=== PATIENT | female | born 1955 | race Hispanic/Latino ===

== ENCOUNTER 2017-08-03 08:48 | Outpatient (CLI) | payer MEDICARE, MEDICAID | END 2017-08-03 08:49 | disposition home or self-care (01) | LOC: VAS 08:48 | PROVIDERS: ATTEND Internal Medicine | DX: M79.604 Pain in right leg (principal); M79.89 Other specified soft tissue disorders ==

== ENCOUNTER 2017-12-12 08:31 | Day surgery (SDC) | payer MEDICARE ==
[~2017-12-12 08:31] MED LIST: ANCEF/STERILE WATER 2 GM/20 ML 2 GM/20 ML SYRINGE IV NR; DEMEROL IV PRN; DILAUDID IV PRN; LACTATED RINGERS 1,000 ML IV SCH; VERSED IV NR; ZOFRAN IV PRN
[2017-12-12] MEDS ORDERED: ANCEF/STERILE WATER 2 GM/20 ML IV NR (10:00)
[2017-12-12] MEDS ORDERED: DIPRIVAN 10 MG/ML IV ONE (10:19)
--- NOTE | 2017-12-12 10:28 | Anesthesia Day of Surgery ---
Anesthesia Day of Surgery - Day of Surgery Patient Examined: Yes Patient H&P Reviewed: Yes Patient is NPO: Yes
--- NOTE | 2017-12-12 10:30 | Anesthesia Consultation ---
Anesthesia Consult and Med Hx Date of service: 12/12/17 - Airway Anesthetic Teeth Evaluation: Good ROM Head & Neck: Adequate Mental/Hyoid Distance: Adequate Mallampati Class: Class III Intubation Access Assessment: Possibly Difficult - Pulmonary Exam CTA: Yes - Cardiac Exam Cardiac Exam: RRR - Pre-Operative Health Status ASA Pre-Surgery Classification: ASA3 Proposed Anesthetic Plan: General (Ga with LMA, hx of cerebral hematoma, placed on seizure meds but no hx os seizure, HTN controlled took her metoprolol today, no hx of CAD, No DM) - Pulmonary Hx Smoking: No SOB: Yes (SOB) Hx Sleep Apnea: No (YESI PRE SCREEN HIGH RISK) - Cardiovascular System Hx Hypertension: Yes (X 10 YRS) - Central Nervous System Hx Seizures: Yes (LAST SEIZURE AT LEAST 10 YRS AGO) - Endocrine Hx Hypothyroidism: Yes (JUST STARTED ON MEDS) - Other Systems Hx Cancer: No
[2017-12-12] MEDS ORDERED: NORMODYNE IV ONE (11:04)
[2017-12-12] MEDS ORDERED: ROBINUL ONE (11:04)
[2017-12-12] MEDS ORDERED: WATER FOR IRRIG STERILE IR ONE (11:04)
[2017-12-12] MEDS ORDERED: ZOFRAN ONE (11:04)
[2017-12-12] MEDS ORDERED: XYLOCAINE MPF 2% ONE (11:04)
[2017-12-12] MEDS ORDERED: LASIX ONE (11:04)
--- NOTE | 2017-12-12 11:09 | Post Operative Note ---
Date of procedure: 12/12/17 Pre-op diagnosis: cystitis Post-op diagnosis: same Findings: normal bladder retracted urethra Procedure: cysto rpgs Anesthesia: GETA Surgeon: TODD SINGH Estimated blood loss: none Pathology: none Condition: stable Disposition: PACU
--- NOTE | 2017-12-12 11:10 | Discharge Summary ---
Short Stay Discharge Plan Activity: up only with assistance, other Weight Bearing Status: Non-Weight Bearing Diet: low fat, low salt Special Instructions: other (inc fluids ) Follow up with: FERNANDA KINNEY MD [Primary Care Provider] - 7 Days TODD SINGH MD [Staff Physician] - 6 Weeks
--- NOTE | 2017-12-12 11:13 | Post Anesthesia Evaluation ---
- Post Anesthesia Evaluation Patient Participated: Yes Airway Patent: Yes Stable Respiratory Function: Yes Nausea/Vomiting: No Temp > 96.8F: Yes Pain Manageable: Yes Adequeate Hydration: Yes Anesthesia Complications: No
--- NOTE | 2017-12-12 11:49 | Operative Report ---
PREOPERATIVE DIAGNOSES: Chronic cystitis, poorly compliant, inability to examine in the office. PREOPERATIVE DIAGNOSES: Chronic cystitis, poorly compliant, inability to examine in the office. PROCEDURE: Cystoscopy, retrograde. SURGEON: Scott Alvarez MD ANESTHESIA: General. FINDINGS: This is a woman who is not cooperative, has a very retracted urethra that we noted now since she could not get on the table in the office. She mentally, physically could not be examined and now presents for cystoscopy. DESCRIPTION OF PROCEDURE: The patient was brought to the operating room and placed on the operating table. Following induction of anesthesia, placed in lithotomy position, prepped and draped in sterile fashion. She is obese with a very narrowed introitus. It was very tight, atrophic. Urethra was very retracted. Cystoscopy was carried out which showed no papillary lesions, no bladder lesions that required biopsy. Retrograde showed good filling, good drainage with some pyelosinus backflow on the left side. The patient tolerated the procedure well. No persistent filling defects were noted. No biopsy required, was brought to recovery in stable condition. JOB# [id number] ANNABELLA/MIK
--- NOTE | 2017-12-12 13:48 | Fluoroscopy Report ---
FLUOROSCOPY RETROGRADE UROGRAPHY: HISTORY: Cystitis. FINDINGS: Fluoroscopy was provided by radiology during retrograde urography by the urologist. 7 fluoroscopic images were captured. The right retrograde pyelogram is normal. The inferior calyces within the left kidney are poorly opacified. There may be a filling defect in the left renal pelvis which is poorly demonstrated on this exam. The superior calyces in the left kidney appear mildly dilated. The left ureter is grossly normal. Please correlate with the procedural report. IMPRESSION: Slightly abnormal left retrograde pyelogram.
[2017-12-12 15:00] VITALS: BP 140/90
== END 2017-12-12 13:10 | disposition home or self-care (01) ==
LOC: OR 08:31
PROVIDERS: ATTEND Urology
DX: N30.20 Other chronic cystitis without hematuria (principal); E78.00 Pure hypercholesterolemia, unspecified; I10 Essential (primary) hypertension; E03.9 Hypothyroidism, unspecified; F32.9 Major depressive disorder, single episode, unspecified; F41.9 Anxiety disorder, unspecified; Z88.8 Allergy status to other drugs, medicaments and biological substances; Z79.899 Other long term (current) drug therapy; Z98.49 Cataract extraction status, unspecified eye
CPT/HCPCS: 52005; 74420; 82803; A4217; C1758; J0690; J1940; J2405; J2704; J7120; Q9967

== ENCOUNTER 2018-05-01 15:50 | Inpatient (IN) | payer MEDICARE ==
--- NOTE | 2018-05-01 16:21 | Emergency Department Report ---
ED Neuro Deficit HPI - General Chief Complaint: Neuro Symptoms/Deficit Stated Complaint: DIZZINESS/WEAKNESS Time Seen by Provider: 05/01/18 16:06 Source: EMS Mode of arrival: Stretcher Limitations: No Limitations - History of Present Illness Initial Comments: Patient is 62 years old female with history of mental retardation, seizure, hypertension and paranoid schizophrenia. Patient brought to the emergency room via EMS from adult daycare for change in her mental status and staff stating that she is leaning more towards the right side. Unknown time of onset. Patient is not communicating well so most of the history is from the daycare staff and from medical records. Daycare staff stated that patient is in acute rehabilitation for a brain bleed one month ago for which she did not require any surgery. Patient is verbally responding but she is not answering question appropriately. Also there is a significant delay in answering questions. Ac cording to adult daycare staff,This is not her normal. -: unknown Location: altered Presenting Symptoms: Present: Altered Mental Status History of same: Yes Quality: weak - Related Data Home Medications: Home Medications Medication Instructions Recorded Confirmed Last Taken ALBUTEROL Inhaler(NF) [VENTOLIN 1 puff IH PRN PRN 12/08/17 12/12/17 12/11/17 07:45 Inhaler(NF)] Atorvastatin (Nf) [Lipitor (Nf)] 20 mg PO QDAY 12/08/17 12/12/17 12/12/17 07:45 Azelastine 0.1% (Nf) [Astelin (Nf)] 2 spray INHALATION BID 12/08/17 12/12/17 12/11/17 20:00 Clotrimazole-Betamethasone Crm 1 dose TRANSDERMA DAILY 12/08/17 12/12/17 12/11/17 20:[address] [DepaKOTE DR] 500 mg PO BID 12/08/17 12/12/17 12/11/17 20:00 Docusate Sodium [Stool Softener] 100 mg PO PRN PRN 12/08/17 12/12/17 12/11/17 20:00 Ferrous Sulfate 325 mg PO DAILY 12/08/17 12/12/17 12/11/17 20:00 Fluticasone [Flonase] 2 spray NS QDAY 12/08/17 12/12/17 12/11/17 20:00 Furosemide [Lasix TAB] 40 mg PO QDAY 12/08/17 12/12/17 11/23/17 09:00 Haloperidol 10 mg PO BID 12/08/17 12/12/17 12/11/17 20:00 Levothyroxine [Synthroid] 50 mcg PO QAM 12/08/17 12/12/17 12/11/17 07:45 Loratadine [Claritin] 10 mg PO DAILY 12/08/17 12/12/17 12/12/17 07:45 Metoprolol [Lopressor] 25 mg PO BID 12/08/17 12/12/17 12/12/17 07:45 Ondansetron [Zofran TAB] 4 mg PO Q8HR PRN 12/08/17 12/08/17 Unknown Paliperidone [Paliperidone ER] 3 mg PO DAILY 12/08/17 12/12/17 12/12/17 07:45 Phenytoin [Dilantin] 100 mg PO Q8HR 12/08/17 12/12/17 12/12/17 07:45 Potassium Chloride [Klor-Con 20 meq PO DAILY 12/08/17 12/12/17 12/12/17 07:45 Sprinkle] QUEtiapine [SEROquel] 200 mg PO BID 12/08/17 12/12/17 12/11/17 20:00 Sertraline [Zoloft] 100 mg PO QDAY 12/08/17 12/12/17 12/11/17 20:00 amLODIPine [Norvasc] 10 mg PO DAILY 12/08/17 12/12/17 12/12/17 07:45 levETIRAcetam [Keppra TAB] 2,000 mg PO BID 12/08/17 12/12/17 12/12/17 07:45 Allergies/Adverse Reactions: Allergies Allergy/AdvReac Type Severity Reaction Status Date / Time erythromycin base Allergy Rash Verified 12/08/17 13:56 [From E-Mycin] nitrofurantoin Allergy MUSCLE Verified 12/08/17 13:57 [From Macrobid] WEAKNESS,DECREASED MOBILITY vancomycin Allergy Rash Verified 12/08/17 13:56 ED Review of Systems ROS: Stated complaint: DIZZINESS/WEAKNESS Other details as noted in HPI Comment: Unobtainable due to pts medical conditions ED Past Medical Hx - Past Medical History Hx Hypertension: Yes (X 10 YRS) Hx Diabetes: Yes Hx Seizures: Yes (LAST SEIZURE AT LEAST 10 YRS AGO) Hx HIV: No Additional medical history: Scizophrenia, mild mental retardation - Social History Smoking Status: Unknown if ever smoked - Medications Home Medications: Home Medications Medication Instructions Recorded Confirmed Last Taken Type ALBUTEROL Inhaler(NF) [VENTOLIN 1 puff IH PRN PRN 12/08/17 12/12/17 12/11/17 07:45 History Inhaler(NF)] Atorvastatin (Nf) [Lipitor (Nf)] 20 mg PO QDAY 12/08/17 12/12/17 12/12/17 07:45 History Azelastine 0.1% (Nf) [Astelin (Nf)] 2 spray INHALATION BID 12/08/17 12/12/17 12/11/17 20:00 History Clotrimazole-Betamethasone Crm 1 dose TRANSDERMA DAILY 12/08/17 12/12/17 12/11/17 20:[address] [DepaKOTE DR] 500 mg PO BID 12/08/17 12/12/17 12/11/17 20:00 History Docusate Sodium [Stool Softener] 100 mg PO PRN PRN 12/08/17 12/12/17 12/11/17 20:00 History Ferrous Sulfate 325 mg PO DAILY 12/08/17 12/12/17 12/11/17 20:00 History Fluticasone [Flonase] 2 spray NS QDAY 12/08/17 12/12/17 12/11/17 20:00 History Furosemide [Lasix TAB] 40 mg PO QDAY 12/08/17 12/12/17 11/23/17 09:00 History Haloperidol 10 mg PO BID 12/08/17 12/12/17 12/11/17 20:00 History Levothyroxine [Synthroid] 50 mcg PO QAM 12/08/17 12/12/17 12/11/17 07:45 History Loratadine [Claritin] 10 mg PO DAILY 12/08/17 12/12/17 12/12/17 07:45 History Metoprolol [Lopressor] 25 mg PO BID 12/08/17 12/12/17 12/12/17 07:45 History Ondansetron [Zofran TAB] 4 mg PO Q8HR PRN 12/08/17 12/08/17 Unknown History Paliperidone [Paliperidone ER] 3 mg PO DAILY 12/08/17 12/12/17 12/12/17 07:45 History Phenytoin [Dilantin] 100 mg PO Q8HR 12/08/17 12/12/17 12/12/17 07:45 History Potassium Chloride [Klor-Con 20 meq PO DAILY 12/08/17 12/12/17 12/12/17 07:45 History Sprinkle] QUEtiapine [SEROquel] 200 mg PO BID 12/08/17 12/12/17 12/11/17 20:00 History Sertraline [Zoloft] 100 mg PO QDAY 12/08/17 12/12/17 12/11/17 20:00 History amLODIPine [Norvasc] 10 mg PO DAILY 12/08/17 12/12/17 12/12/17 07:45 History levETIRAcetam [Keppra TAB] 2,000 mg PO BID 12/08/17 12/12/17 12/12/17 07:45 History ED Neuro Physical Exam - General Limitations: No Limitations General appearance: alert, in no apparent distress Suspected Stroke: Yes - Head Head exam: Present: atraumatic, normocephalic, normal inspection - Eye Eye exam: Present: normal appearance - ENT ENT exam: Present: normal exam, normal orophraynx, mucous membranes moist - Neck Neck exam: Present: normal inspection, full ROM. Absent: tenderness, meningismus, lymphadenopathy, thyromegaly - Respiratory Respiratory exam: Present: normal lung sounds bilaterally. Absent: respiratory distress, wheezes, rales, rhonchi, accessory muscle use, decreased breath sounds, prolonged expiratory - Cardiovascular Cardiovascular Exam: Present: regular rate, normal rhythm, normal heart sounds - GI/Abdominal GI/Abdominal exam: Present: soft. Absent: distended, tenderness, guarding, rebound, rigid, organomegaly, mass, pulsatile mass - Extremities Exam Extremities exam: Present: normal inspection, full ROM, normal capillary refill. Absent: calf tenderness - Back Exam Back exam: Present: normal inspection - Neurological Exam Neurological exam: Present: alert, altered - NIHSS Assessment Interval: Baseline 1a. Level of Consciousness: alert/keenly responsive 1b. LOC Questions: answers 1 question correctly 1c. LOC Commands: performs 1 task correctly 2. Best Gaze: normal 3. Visual: no visual loss 4. Facial Palsy: normal symmetrical movement 5b. Motor Arm Right: some gravity effort 5a. Motor Arm Left: some gravity effort 6a. Motor Leg Left: some gravity effort 6b. Motor Leg Right: some gravity effort 7. Limb Ataxia: absent 8. Sensory: no response/quadraplegic 9. Best Language: no aphasia 10. Dysarthria: mild/moderate dysarthria 11. Extinction/Inattention: no abnormality Total Score: 13 Stroke Severity: Moderate Stroke - Psychiatric Psychiatric exam: Present: flat affect - Skin Skin exam: Present: warm, intact, normal color ED Course Vital Signs 05/01/18 05/01/18 16:09 16:10 Temperature 97.6 F 97.6 F Pulse Rate 80 80 Respiratory 19 19 Rate Blood Pressure 135/56 Blood Pressure 135/56 [Right] O2 Sat by Pulse 94 94 Oximetry - Lab Data Result diagrams: 05/01/18 16:17 05/01/18 16:17 Lab Results 05/01/18 05/01/18 05/01/18 Range/Units 16:17 16:17 16:17 WBC 9.7 (4.5-11.0) K/mm3 RBC 3.55 L (3.65-5.03) M/mm3 Hgb 11.8 (10.1-14.3) gm/dl Hct 32.6 (30.3-42.9) % MCV 92 (79-97) fl MCH 33 H (28-32) pg MCHC 36 H (30-34) % RDW 13.7 (13.2-15.2) % Plt Count 141 (140-440) K/mm3 Add Manual Diff Complete Total Counted 100 Seg Neuts % (Manual) 58.0 (40.0-70.0) % Band Neutrophils % 1.0 % Lymphocytes % (Manual) 29.0 (13.4-35.0) % Reactive Lymphs % (Man) 0 % Monocytes % (Manual) 8.0 H (0.0-7.3) % Eosinophils % (Manual) 2.0 (0.0-4.3) % Basophils % (Manual) 1.0 (0.0-1.8) % Metamyelocytes % 1.0 % Myelocytes % 0 % Promyelocytes % 0 % Blast Cells % 0 % Nucleated RBC % Not Reportable Seg Neutrophils # Man 5.6 (1.8-7.7) K/mm3 Band Neutrophils # 0.1 K/mm3 Lymphocytes # (Manual) 2.8 (1.2-5.4) K/mm3 Abs React Lymphs (Man) 0.0 K/mm3 Monocytes # (Manual) 0.8 (0.0-0.8) K/mm3 Eosinophils # (Manual) 0.2 (0.0-0.4) K/mm3 Basophils # (Manual) 0.1 (0.0-0.1) K/mm3 Metamyelocytes # 0.1 K/mm3 Myelocytes # 0.0 K/mm3 Promyelocytes # 0.0 K/mm3 Blast Cells # 0.0 K/mm3 WBC Morphology Not Reportable Hypersegmented Neuts Not Reportable Hyposegmented Neuts Not Reportable Hypogranular Neuts Not Reportable Smudge Cells Not Reportable Toxic Granulation Not Reportable Toxic Vacuolation Not Reportable Dohle Bodies Not Reportable Pelger-Huet Anomaly Not Reportable [place] Rods Not Reportable Platelet Estimate Consistent w auto Clumped Platelets Not Reportable Plt Clumps, EDTA Not Reportable Large Platelets Not Reportable Giant Platelets Not Reportable Platelet Satelliting Not Reportable Plt Morphology Comment Not Reportable RBC Morphology Not Reportable Dimorphic RBCs Not Reportable Polychromasia Not Reportable Hypochromasia Not Reportable Poikilocytosis Not Reportable Anisocytosis 1+ Microcytosis Not Reportable Macrocytosis Not Reportable Spherocytes Not Reportable Pappenheimer Bodies Not Reportable Sickle Cells Not Reportable Target Cells Not Reportable Tear Drop Cells Not Reportable Ovalocytes Few Helmet Cells Not Reportable [place] Bodies Not Reportable Clarissa Rings Not Reportable [place] Cells Not Reportable Bite Cells Not Reportable Crenated Cell Not Reportable Elliptocytes Not Reportable Acanthocytes (Spur) Not Reportable Rouleaux Not Reportable Hemoglobin C Crystals Not Reportable Schistocytes Not Reportable Malaria parasites Not Reportable Brian Bodies Not Reportable Hem Pathologist Commnt No PT 12.9 (12.2-14.9) Sec. INR 0.92 (0.87-1.13) APTT 49.6 H (24.2-36.6) Sec. Thrombin Time < 13.0 L (15.1-19.6) Sec. Sodium (137-145) mmol/L Potassium (3.6-5.0) mmol/L Chloride (98-107) mmol/L Carbon Dioxide (22-30) mmol/L Anion Gap mmol/L BUN (7-17) mg/dL Creatinine (0.7-1.2) mg/dL Estimated GFR ml/min BUN/Creatinine Ratio % Glucose (65-100) mg/dL Calcium (8.4-10.2) mg/dL Total Bilirubin (0.1-1.2) mg/dL Direct Bilirubin (0-0.2) mg/dL Indirect Bilirubin mg/dL AST (5-40) units/L ALT (7-56) units/L Alkaline Phosphatase (35-129) units/L Total Creatine Kinase 18 L (30-135) units/L CK-MB (CK-2) < 1.0 (0.0-4.0) ng/mL CK-MB (CK-2) Rel Index 5.5 H (0-4) Troponin T < 0.010 (0.00-0.029) ng/mL Total Protein (6.3-8.2) g/dL Albumin (3.9-5) g/dL Albumin/Globulin Ratio % Urine Bilirubin (Negative) Urine RBC (Auto) (0.0-6.0) /HPF 05/01/18 05/01/18 Range/Units 16:17 17:10 WBC (4.5-11.0) K/mm3 RBC (3.65-5.03) M/mm3 Hgb (10.1-14.3) gm/dl Hct (30.3-42.9) % MCV (79-97) fl MCH (28-32) pg MCHC (30-34) % RDW (13.2-15.2) % Plt Count (140-440) K/mm3 Add Manual Diff Total Counted Seg Neuts % (Manual) (40.0-70.0) % Band Neutrophils % % Lymphocytes % (Manual) (13.4-35.0) % Reactive Lymphs % (Man) % Monocytes % (Manual) (0.0-7.3) % Eosinophils % (Manual) (0.0-4.3) % Basophils % (Manual) (0.0-1.8) % Metamyelocytes % % Myelocytes % % Promyelocytes % % Blast Cells % % Nucleated RBC % Seg Neutrophils # Man (1.8-7.7) K/mm3 Band Neutrophils # K/mm3 Lymphocytes # (Manual) (1.2-5.4) K/mm3 Abs React Lymphs (Man) K/mm3 Monocytes # (Manual) (0.0-0.8) K/mm3 Eosinophils # (Manual) (0.0-0.4) K/mm3 Basophils # (Manual) (0.0-0.1) K/mm3 Metamyelocytes # K/mm3 Myelocytes # K/mm3 Promyelocytes # K/mm3 Blast Cells # K/mm3 WBC Morphology Hypersegmented Neuts Hyposegmented Neuts Hypogranular Neuts Smudge Cells Toxic Granulation Toxic Vacuolation Dohle Bodies Pelger-Huet Anomaly [place] Rods Platelet Estimate Clumped Platelets Plt Clumps, EDTA Large Platelets Giant Platelets Platelet Satelliting Plt Morphology Comment RBC Morphology Dimorphic RBCs Polychromasia Hypochromasia Poikilocytosis Anisocytosis Microcytosis Macrocytosis Spherocytes Pappenheimer Bodies Sickle Cells Target Cells Tear Drop Cells Ovalocytes Helmet Cells Can-[place] Bodies Clarissa Rings [place] Cells Bite Cells Crenated Cell Elliptocytes Acanthocytes (Spur) Rouleaux Hemoglobin C Crystals Schistocytes Malaria parasites Brian Bodies Hem Pathologist Commnt PT (12.2-14.9) Sec. INR (0.87-1.13) APTT (24.2-36.6) Sec. Thrombin Time (15.1-19.6) Sec. Sodium 128 L (137-145) mmol/L Potassium 4.7 (3.6-5.0) mmol/L Chloride 92.0 L (98-107) mmol/L Carbon Dioxide 24 (22-30) mmol/L Anion Gap 17 mmol/L BUN 8 (7-17) mg/dL Creatinine 0.4 L (0.7-1.2) mg/dL Estimated GFR > 60 ml/min BUN/Creatinine Ratio 20 % Glucose 101 H (65-100) mg/dL Calcium 8.5 (8.4-10.2) mg/dL Total Bilirubin < 0.20 (0.1-1.2) mg/dL Direct Bilirubin < 0.2 (0-0.2) mg/dL Indirect Bilirubin 0.0 mg/dL AST 8 (5-40) units/L ALT 9 (7-56) units/L Alkaline Phosphatase 88 (35-129) units/L Total Creatine Kinase (30-135) units/L CK-MB (CK-2) (0.0-4.0) ng/mL CK-MB (CK-2) Rel Index (0-4) Troponin T (0.00-0.029) ng/mL Total Protein 6.5 (6.3-8.2) g/dL Albumin 3.9 (3.9-5) g/dL Albumin/Globulin Ratio 1.5 % Urine Bilirubin Neg (Negative) Urine RBC (Auto) < 1.0 (0.0-6.0) /HPF - Radiology Data Radiology results: report reviewed Referring Physician: MARISA PRIETO Patient Name: NATALIA GALLAGHER Date of : 1955 Sex: Female Report Date: 2018-05-01 Report Status: Finalized Findings [facility] [address] [place] [address] Cat Scan Report Signed Patient: NATALIA GALLAGHER MR#: [id number] : 1955 Acct:[id number] Age/Sex: 62 / F ADM Date: 05/01/18 Loc: ED Attending Dr: Ordering Physician: MARISA PRIETO Date of Service: 05/01/18 Procedure(s): CT head/brain wo con Accession Number(s): [id number] cc: MARISA PRIETO PROCEDURE: CT HEAD/BRAIN WO CON TECHNIQUE: Axial helical imaging from the skull base to the vertex. HISTORY: Stroke symptoms COMPARISONS: None FINDINGS: There is previous frontal temporal craniotomy. There is encephalomalacia of the right frontal and temporal lobes deep to the craniotomy site. There is increased dural thickness and dural calcification deep to the craniotomy site. There is no evidence of an acute intracranial process, intracranial hemorrhage or mass effect. Ventricular size is concordant with the degree of atrophy/volume loss. There is atherosclerotic vascular calcification of the internal carotid arteries bilaterally at the skull base. The visualized portions of the orbits, paranasal and mastoid sinuses are notable for partial opacification of the hypoplastic right mastoid sinus. IMPRESSION: 1. No evidence of an acute intracranial process, intracranial hemorrhage or mass effect. 2. Previous right frontotemporal craniotomy with encephalomalacia in the right frontal and temporal lobes deep to the craniotomy site and increased dural thickness and dural calcification deep to the craniotomy site. This document is electronically signed by Natalia Dave MD., May 01 2018 05:24:46 PM ET Transcribed By: ED Dictated By: NATALIA DAVE MD Electronically Authenticated By: NATALIA DAVE MD Signed Date/Time: 05/01/18 1726 DD/ 0000 TD/TT: 05/01/18 1654 - Medical Decision Making Patient is 62 years old female with history of mental retardation, seizure, hypertension and paranoid schizophrenia. Patient brought to the emergency room via EMS from adult daycare for change in her mental status and staff stating that she is leaning more towards the right side. Unknown time of onset. Patient is not communicating well so most of the history is from the daycare staff and from medical records. Daycare staff stated that patient is in acute rehabilitation for a brain bleed one month ago for which she did not require any surgery. Patient is verbally responding but she is not answering question appropriately. Also there is a significant delay in answering questions. According to adult daycare staff,This is not her normal. Patient remained stable in the ER. CT brain is negative for acute finding. EKG is sinus rhythm with no ST elevation or depression. Labs reviewed that is unremarkable. I discussed the patient is Dr. Hauser, he agreed to admit the patient to medical service for further management. Critical Care Time: Yes Critical care time in (mins) excluding proc time.: 30 Critical care attestation.: If time is entered above; I have spent that time in minutes in the direct care of this critically ill patient, excluding procedure time. ED Disposition Clinical Impression: CVA (cerebral vascular accident) Disposition: OP ADMIT IP TO THIS HOSP Is pt being admited?: Yes Condition: Stable
[2018-05-01 16:36] LABS: Hematocrit 32.6 % (30.3-42.9); Hemoglobin 11.8 gm/dl (10.1-14.3); Mean Corpuscular HGB Conc 36 % (30-34); Mean Corpuscular Volume 92 fl (79-97); Platelet Count 141 K/mm3 (140-440); Red Blood Count 3.55 M/mm3 (3.65-5.03); Red Cell Distribution Width 13.7 % (13.2-15.2)
[2018-05-01 16:51] LABS: INR 0.92 (0.87-1.13)
[2018-05-01 16:52] LABS: Partial Thromboplastin Time 49.6 Sec. (24.2-36.6)
[2018-05-01 16:57] LABS: Alanine Aminotransferase 9 units/L (7-56); Albumin 3.9 g/dL (3.9-5); BUN/Creatinine Ratio 20; Blood Urea Nitrogen 8 mg/dL (7-17); Calcium 8.5 mg/dL (8.4-10.2); Hemolysis Index 9
[2018-05-01 17:00] LABS: Thrombin Time < 13.0 Sec. (15.1-19.6)
[2018-05-01 17:09] LABS: Bilirubin,Direct < 0.2 mg/dL (0-0.2); Creatine Kinase MB < 1.0 ng/mL (0.0-4.0)
--- NOTE | 2018-05-01 17:26 | Cat Scan Report ---
PROCEDURE: CT HEAD/BRAIN WO CON TECHNIQUE: Axial helical imaging from the skull base to the vertex. HISTORY: Stroke symptoms COMPARISONS: None FINDINGS: There is previous frontal temporal craniotomy. There is encephalomalacia of the right frontal and temporal lobes deep to the craniotomy site. There is increased dural thickness and dural calcification deep to the craniotomy site. There is no evidence of an acute intracranial process, intracranial hemorrhage or mass effect. Ventricular size is concordant with the degree of atrophy/volume loss. There is atherosclerotic vascular calcification of the internal carotid arteries bilaterally at the s kull base. The visualized portions of the orbits, paranasal and mastoid sinuses are notable for partial opacific ation of the hypoplastic right mastoid sinus. IMPRESSION: 1. No evidence of an acute intracranial process, intracranial hemorrhage or mass effect. 2. Previous right frontotemporal craniotomy with encephalomalacia in the right frontal and temporal l obes deep to the craniotomy site and increased dural thickness and dural calcification deep to the cr aniotomy site. This document is electronically signed by Natalia Dave MD., May 01 2018 05:24:46 PM ET
[2018-05-01 17:32] LABS: Band Neutrophils # (Manual) 0.1 K/mm3; Total Cells Counted 100
[2018-05-01 17:33] LABS: Anisocytosis 1+; Ovalocytes Few; Platelet Estimate Consistent w Auto
[2018-05-01 17:55] LABS: Bilirubin,Urine NEG (Negative); Blood,Urine NEG (Negative); Color,Urine Colorless (Yellow); Protein,Urine <15 mg/dL mg/dL (Negative); RBC,Urine < 1.0 /HPF (0.0-6.0); Urobilinogen,Urine < 2.0 mg/dL (<2.0)
--- NOTE | 2018-05-01 18:00 | History and Physical Report ---
History of Present Illness Chief complaint: She got dizzy and weak History of present illness: 62 YO Female with MR, Seizure, HTN, DM, Paranoid Schizophrenia, Hypothyroidism, Chronic Nonoperative SDH presents to ED for evaluation. Pt is minimally verbal and unable to provide history. Pt caregiver is at bedside and provides history. As per caregiver, the patient was attending Adult Daycare today when staff noticed right sided weakness. EMS notified and upon arrival the patient was found to have suspected neurologic deficit. A code stroke was called. Pt transported to [facility]. Pt seen and evaluated in ED and found to have suspected neurologic deficit. Pt admitted to Telemetry, and initiated on CVA protocol. 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 denies: smoking, alcohol abuse Family history: diabetes, hypertension Medications and Allergies Allergies Allergy/AdvReac Type Severity Reaction Status Date / Time erythromycin base Allergy Rash Verified 12/08/17 13:56 [From E-Mycin] nitrofurantoin Allergy MUSCLE Verified 12/08/17 13:57 [From Macrobid] WEAKNESS,DECREASED MOBILITY vancomycin Allergy Rash Verified 12/08/17 13:56 amoxicillin AdvReac Vomiting Verified 05/01/18 19:09 Home Medications Medication Instructions Recorded Confirmed Last Taken Type Atorvastatin (Nf) [Lipitor (Nf)] 20 mg PO QDAY 12/08/17 05/02/18 04/30/18 20:00 History Azelastine 0.1% (Nf) [Astelin (Nf)] 2 spray INHALATION BID 12/08/17 05/02/18 05/01/18 08:[address] [DepaKOTE DR] 500 mg PO BID 12/08/17 05/02/18 05/01/18 08:00 History Docusate Sodium [Stool Softener] 100 mg PO BID 12/08/17 05/02/18 05/01/18 08:00 History Ferrous Sulfate 325 mg PO BID 12/08/17 05/02/18 05/01/18 08:00 History Fluticasone [Flonase] 2 spray NS QDAY 12/08/17 05/02/18 05/01/18 08:00 History Haloperidol 10 mg PO BID 12/08/17 05/02/18 05/01/18 08:00 History Levothyroxine [Synthroid] 50 mcg PO QAM 12/08/17 05/02/18 05/01/18 08:00 History Loratadine [Claritin] 10 mg PO DAILY 12/08/17 05/02/18 05/01/18 08:00 History Ondansetron [Zofran TAB] 4 mg PO Q8HR PRN 12/08/17 05/02/18 Unknown History Paliperidone [Paliperidone ER] 1.5 mg PO DAILY 12/08/17 05/02/18 05/01/18 08:00 History Phenytoin [Dilantin] 100 mg PO QAM 12/08/17 05/02/18 05/01/18 08:00 History Potassium Chloride [Klor-Con 10 meq PO DAILY 12/08/17 05/02/18 05/01/18 08:00 History Sprinkle] Sertraline [Zoloft] 100 mg PO QDAY 12/08/17 05/02/18 05/01/18 08:00 History amLODIPine [Norvasc] 10 mg PO DAILY 12/08/17 05/02/18 05/01/18 08:00 History levETIRAcetam [Keppra TAB] 1,000 mg PO BID 12/08/17 05/02/18 05/01/18 08:00 History Aspirin [Aspirin BABY CHEW TAB] 81 mg PO QDAY 05/02/18 05/02/18 05/01/18 08:00 History Clotrimazole/Betamethasone Dip 1 applicatio TP BID PRN 05/02/18 05/02/18 Unknown History [Lotrisone Cream] Linaclotide (Nf) [Linzess (Nf)] 290 mcg PO QDAY PRN 05/02/18 05/02/18 Unknown History Meloxicam 15 mg PO DAILY 05/02/18 05/02/18 05/01/18 08:00 History Metoprolol [Lopressor TAB] 50 mg PO BID 05/02/18 05/02/18 05/01/18 08:00 History Nystatin Cream [Mycostatin Cream] 1 applicatio TP BID 05/02/18 05/02/18 05/01/18 08:00 History Phenytoin Sodium Extended 200 mg PO QPM 05/02/18 05/02/18 04/30/18 20:00 History Quetiapine Fumarate [Seroquel] 100 mg PO QAM 05/02/18 05/02/18 05/01/18 08:00 History Quetiapine Fumarate [Seroquel] 400 mg PO QPM 05/02/18 05/02/18 04/30/18 20:00 History Review of Systems ROS unobtainable: due to mental status Exam - Constitutional Vitals: Temp Pulse Resp BP Pulse Ox 97.6 F 80 19 135/56 94 05/01/18 16:10 05/01/18 16:10 05/01/18 16:10 05/01/18 16:10 05/01/18 16:10 General appearance: Present: mild distress, obese - Neck Neck: Present: supple, normal ROM - Respiratory Respiratory effort: normal Respiratory: bilateral: CTA - Cardiovascular Heart Sounds: Present: S1 & S2. Absent: rub, click - Extremities Extremities: pulses symmetrical, No edema Peripheral Pulses: within normal limits - Abdominal General gastrointestinal: Present: soft, non-tender, non-distended, normal bowel sounds Female genitourinary: Present: normal - Integumentary Integumentary: Present: clear, warm, dry - Musculoskeletal Musculoskeletal: generalized weakness - Psychiatric Psychiatric: no appropriate mood/affect, no intact judgment & insight, no memory intact - Neurologic Neurologic: focal deficits, no gait normal Results - Labs CBC & Chem 7: 05/01/18 16:17 05/01/18 16:17 Labs: Abnormal lab results 05/01/18 05/01/18 05/01/18 Range/Units 16:17 16:17 16:17 RBC 3.55 L (3.65-5.03) M/mm3 MCH 33 H (28-32) pg MCHC 36 H (30-34) % Monocytes % (Manual) 8.0 H (0.0-7.3) % APTT 49.6 H (24.2-36.6) Sec. Thrombin Time < 13.0 L (15.1-19.6) Sec. Sodium (137-145) mmol/L Chloride (98-107) mmol/L Creatinine (0.7-1.2) mg/dL Glucose (65-100) mg/dL Total Creatine Kinase 18 L (30-135) units/L CK-MB (CK-2) Rel Index 5.5 H (0-4) 05/01/18 Range/Units 16:17 RBC (3.65-5.03) M/mm3 MCH (28-32) pg MCHC (30-34) % Monocytes % (Manual) (0.0-7.3) % APTT (24.2-36.6) Sec. Thrombin Time (15.1-19.6) Sec. Sodium 128 L (137-145) mmol/L Chloride 92.0 L (98-107) mmol/L Creatinine 0.4 L (0.7-1.2) mg/dL Glucose 101 H (65-100) mg/dL Total Creatine Kinase (30-135) units/L CK-MB (CK-2) Rel Index (0-4) Assessment and Plan - Patient Problems (1) CVA (cerebral vascular accident) Current Visit: Yes Status: Acute Qualifiers: Laterality of affected vessel: unspecified Plan to address problem: Admit to telemetry, Stroke protocol: CT Head, MRI BRAIN, MRA Brain, Echo, Carotid Doppler, Antiplatelet therapy, statin therapy, lipid panel, PT/OT/Speech therapy, Neurology consult (2) Developmental delay, gross motor Current Visit: Yes Status: Chronic Plan to address problem: supportive care, neuro checks (3) HTN (hypertension) Current Visit: Yes Status: Acute Qualifiers: Hypertension type: essential hypertension Qualified Code(s): I10 - Essential (primary) hypertension Plan to address problem: moitor bp q shift, permissive hypertension overnight. continue medical management (4) Diabetes Current Visit: Yes Status: Acute Plan to address problem: ADA diet, insulin, accu check (5) Seizure Current Visit: Yes Status: Acute Plan to address problem: Seizure precautions, continue Keppra therapy, neurology consult (6) DVT prophylaxis Current Visit: Yes Status: Acute Plan to address problem: SCD to BLE while in bed.
[2018-05-01] MEDS ORDERED: ZOFRAN IV PRN (18:03)
[2018-05-01] MEDS ORDERED: REGLAN PO PRN (18:03)
[2018-05-01] MEDS ORDERED: PROVENTIL IH PRN (18:03)
[2018-05-01] MEDS ORDERED: PHENERGAN PR PRN (18:03)
[2018-05-01] MEDS ORDERED: DULCOLAX PR PRN (18:03)
[2018-05-01] MEDS ORDERED: MILK OF MAGNESIA PO PRN (18:03)
[2018-05-01] MEDS ORDERED: TYLENOL PO PRN (18:03)
[2018-05-01] MEDS ORDERED: SODIUM CHLORIDE FLUSH SYRINGE 10 ML IV PRN (18:03)
[2018-05-01] MEDS ORDERED: NON-FORMULARY (Ondansetron [Zofran Tab] 4 MG) PO PRN (18:05)
[2018-05-01] MEDS ORDERED: COLACE PO PRN (18:05)
--- NOTE | 2018-05-01 18:19 | XRay Report ---
PROCEDURE: XR CHEST 1V AP TECHNIQUE: Single AP chest. HISTORY: AMS COMPARISONS: No priors FINDINGS: The cardiac silhouette is enlarged. Decreased inspiration and crowding of bronchovascular markings. No airspace consolidation or pleural effusions. Pulmonary vasculature are within normal limits. IMPRESSION: Cardiomegaly with decreased inspiration. No other radiographic evidence of acute disease.. This document is electronically signed by Raymundo oCrdon MD., May 01 2018 06:17:46 PM ET
[2018-05-01] MEDS ORDERED: ZOFRAN ODT PO PRN (18:30)
[2018-05-01] MEDS ORDERED: NON-FORMULARY (Haloperidol [Haloperidol] 10 MG) PO SCH (22:00)
[2018-05-01] MEDS ORDERED: AZELASTINE HCL INHALATION SCH (22:00)
[2018-05-01] MEDS ORDERED: LEVETIRACETAM 2000 MG PO SCH (22:00)
[2018-05-01] MEDS: HALDOL PO SCH (22:52)
[2018-05-01] MEDS: KEPPRA PO SCH (22:53)
[2018-05-01] MEDS: DILANTIN PO SCH (22:53)
[2018-05-02] MEDS: SYNTHROID PO SCH (05:28)
[2018-05-02] MEDS: DILANTIN PO SCH ×3 (05:28→21:52)
[2018-05-02] MEDS ORDERED: LASIX PO SCH (06:00)
--- NOTE | 2018-05-02 08:05 | Progress Note ---
Assessment and Plan Assessment and plan: 62 YO Female with MR, Seizure, HTN, DM, Paranoid Schizophrenia, Hypothyroidism, Chronic Nonoperative SDH presents to ED for evaluation. Pt is minimally verbal and unable to provide history. Pt caregiver is at bedside and provides history. As per caregiver, the patient was attending Adult Daycare today when staff noticed right sided weakness and also change in metal status. EMS notified and upon arrival the patient was found to have suspected neurologic deficit. A code stroke was called. Pt transported to [facility]. Pt seen and evaluated in ED and found to have suspected neurologic deficit. Pt admitted to Telemetry, and initiated on CVA protocol. CXR 05/01/18: IMPRESSION: Cardiomegaly with decreased inspiration. No other radiographic evidence of acute disease. CT head: 05/01/18 IMPRESSION: 1. No evidence of an acute intracranial process, intracranial hemorrhage or mass effect. 2. Previous right frontotemporal craniotomy with encephalomalacia in the right frontal and temporal lobes deep to the craniotomy site and increased dural thickness and dural calcification deep to the craniotomy site. Right Hemiparesis concerning for CVA Development delay, gross motor HTN DIABETES Mellitus with Hyperglycemia Hyponatremia Seizure Paranoid Schizophrenia Plan Supportive care Continue stroke protocol, await Neurology consult, MRI, Echo and Carotid Doppler Continue statins, ASA Await Lipid panel Supportive care ADA DIET, Insulin and accu check Seizure Precautions, continue Keppra Recheck Na level now. Hold lasix DVT/GI Prophylaxis History Interval history: Patient seen and examined in no acute distress. She is resting comfortably. Hospitalist Physical - Physical exam Narrative exam: General appearance: Present: mild distress, obese - Neck Neck: Present: supple, normal ROM - Respiratory Respiratory effort: normal Respiratory: bilateral: CTA - Cardiovascular Heart Sounds: Present: S1 & S2. Absent: rub, click - Extremities Extremities: pulses symmetrical, No edema Peripheral Pulses: within normal limits - Abdominal General gastrointestinal: Present: soft, non-tender, non-distended, normal bowel sounds Female genitourinary: Present: normal - Integumentary Integumentary: Present: clear, warm, dry - Musculoskeletal Musculoskeletal: generalized weakness - Psychiatric Psychiatric: no appropriate mood/affect, no intact judgment & insight, no memory intact - Neurologic Neurologic: focal deficits, no gait normal - Constitutional Vitals: Temp Pulse Resp BP Pulse Ox 97.6 F 93 H 16 131/65 93 05/02/18 03:28 05/02/18 03:28 05/02/18 03:28 05/02/18 03:28 05/02/18 03:28 General appearance: Present: mild distress, obese Results - Labs CBC & Chem 7: 05/01/18 16:17 05/02/18 12:11 Labs: Laboratory Last Values WBC 9.7 K/mm3 (4.5-11.0) 05/01/18 16:17 RBC 3.55 M/mm3 (3.65-5.03) L 05/01/18 16:17 Hgb 11.8 gm/dl (10.1-14.3) 05/01/18 16:17 Hct 32.6 % (30.3-42.9) 05/01/18 16:17 MCV 92 fl (79-97) 05/01/18 16:17 MCH 33 pg (28-32) H 05/01/18 16:17 MCHC 36 % (30-34) H 05/01/18 16:17 RDW 13.7 % (13.2-15.2) 05/01/18 16:17 Plt Count 141 K/mm3 (140-440) 05/01/18 16:17 Add Manual Diff Complete 05/01/18 16:17 Total Counted 100 05/01/18 16:17 Seg Neuts % (Manual) 58.0 % (40.0-70.0) 05/01/18 16:17 Band Neutrophils % 1.0 % 05/01/18 16:17 Lymphocytes % (Manual) 29.0 % (13.4-35.0) 05/01/18 16:17 Reactive Lymphs % (Man) 0 % 05/01/18 16:17 Monocytes % (Manual) 8.0 % (0.0-7.3) H 05/01/18 16:17 Eosinophils % (Manual) 2.0 % (0.0-4.3) 05/01/18 16:17 Basophils % (Manual) 1.0 % (0.0-1.8) 05/01/18 16:17 Metamyelocytes % 1.0 % 05/01/18 16:17 Myelocytes % 0 % 05/01/18 16:17 Promyelocytes % 0 % 05/01/18 16:17 Blast Cells % 0 % 05/01/18 16:17 Nucleated RBC % Not Reportable 05/01/18 16:17 Seg Neutrophils # Man 5.6 K/mm3 (1.8-7.7) 05/01/18 16:17 Band Neutrophils # 0.1 K/mm3 05/01/18 16:17 Lymphocytes # (Manual) 2.8 K/mm3 (1.2-5.4) 05/01/18 16:17 Abs React Lymphs (Man) 0.0 K/mm3 05/01/18 16:17 Monocytes # (Manual) 0.8 K/mm3 (0.0-0.8) 05/01/18 16:17 Eosinophils # (Manual) 0.2 K/mm3 (0.0-0.4) 05/01/18 16:17 Basophils # (Manual) 0.1 K/mm3 (0.0-0.1) 05/01/18 16:17 Metamyelocytes # 0.1 K/mm3 05/01/18 16:17 Myelocytes # 0.0 K/mm3 05/01/18 16:17 Promyelocytes # 0.0 K/mm3 05/01/18 16:17 Blast Cells # 0.0 K/mm3 05/01/18 16:17 WBC Morphology Not Reportable 05/01/18 16:17 Hypersegmented Neuts Not Reportable 05/01/18 16:17 Hyposegmented Neuts Not Reportable 05/01/18 16:17 Hypogranular Neuts Not Reportable 05/01/18 16:17 Smudge Cells Not Reportable 05/01/18 16:17 Toxic Granulation Not Reportable 05/01/18 16:17 Toxic Vacuolation Not Reportable 05/01/18 16:17 Dohle Bodies Not Reportable 05/01/18 16:17 Pelger-Huet Anomaly Not Reportable 05/01/18 16:17 [place] Rods Not Reportable 05/01/18 16:17 Platelet Estimate Consistent w auto 05/01/18 16:17 Clumped Platelets Not Reportable 05/01/18 16:17 Plt Clumps, EDTA Not Reportable 05/01/18 16:17 Large Platelets Not Reportable 05/01/18 16:17 Giant Platelets Not Reportable 05/01/18 16:17 Platelet Satelliting Not Reportable 05/01/18 16:17 Plt Morphology Comment Not Reportable 05/01/18 16:17 RBC Morphology Not Reportable 05/01/18 16:17 Dimorphic RBCs Not Reportable 05/01/18 16:17 Polychromasia Not Reportable 05/01/18 16:17 Hypochromasia Not Reportable 05/01/18 16:17 Poikilocytosis Not Reportable 05/01/18 16:17 Anisocytosis 1+ 05/01/18 16:17 Microcytosis Not Reportable 05/01/18 16:17 Macrocytosis Not Reportable 05/01/18 16:17 Spherocytes Not Reportable 05/01/18 16:17 Pappenheimer Bodies Not Reportable 05/01/18 16:17 Sickle Cells Not Reportable 05/01/18 16:17 Target Cells Not Reportable 05/01/18 16:17 Tear Drop Cells Not Reportable 05/01/18 16:17 Ovalocytes Few 05/01/18 16:17 Helmet Cells Not Reportable 05/01/18 16:17 [place] Bodies Not Reportable 05/01/18 16:17 [place] Rings Not Reportable 05/01/18 16:17 Sikes Cells Not Reportable 05/01/18 16:17 Bite Cells Not Reportable 05/01/18 16:17 Crenated Cell Not Reportable 05/01/18 16:17 Elliptocytes Not Reportable 05/01/18 16:17 Acanthocytes (Spur) Not Reportable 05/01/18 16:17 Rouleaux Not Reportable 05/01/18 16:17 Hemoglobin C Crystals Not Reportable 05/01/18 16:17 Schistocytes Not Reportable 05/01/18 16:17 Malaria parasites Not Reportable 05/01/18 16:17 Brian Bodies Not Reportable 05/01/18 16:17 Hem Pathologist Commnt No 05/01/18 16:17 PT 12.9 Sec. (12.2-14.9) 05/01/18 16:17 INR 0.92 (0.87-1.13) 05/01/18 16:17 APTT 49.6 Sec. (24.2-36.6) H 05/01/18 16:17 Thrombin Time < 13.0 Sec. (15.1-19.6) L 05/01/18 16:17 Sodium 128 mmol/L (137-145) L 05/01/18 16:17 Potassium 4.7 mmol/L (3.6-5.0) 05/01/18 16:17 Chloride 92.0 mmol/L (98-107) L 05/01/18 16:17 Carbon Dioxide 24 mmol/L (22-30) 05/01/18 16:17 Anion Gap 17 mmol/L 05/01/18 16:17 BUN 8 mg/dL (7-17) 05/01/18 16:17 Creatinine 0.4 mg/dL (0.7-1.2) L 05/01/18 16:17 Estimated GFR > 60 ml/min 05/01/18 16:17 BUN/Creatinine Ratio 20 % 05/01/18 16:17 Glucose 101 mg/dL (65-100) H 05/01/18 16:17 Calcium 8.5 mg/dL (8.4-10.2) 05/01/18 16:17 Total Bilirubin < 0.20 mg/dL (0.1-1.2) 05/01/18 16:17 Direct Bilirubin < 0.2 mg/dL (0-0.2) 05/01/18 16:17 Indirect Bilirubin 0.0 mg/dL 05/01/18 16:17 AST 8 units/L (5-40) 05/01/18 16:17 ALT 9 units/L (7-56) 05/01/18 16:17 Alkaline Phosphatase 88 units/L (35-129) 05/01/18 16:17 Total Creatine Kinase 18 units/L (30-135) L 05/01/18 16:17 CK-MB (CK-2) < 1.0 ng/mL (0.0-4.0) 05/01/18 16:17 CK-MB (CK-2) Rel Index 5.5 (0-4) H 05/01/18 16:17 Troponin T < 0.010 ng/mL (0.00-0.029) 05/01/18 16:17 Total Protein 6.5 g/dL (6.3-8.2) 05/01/18 16:17 Albumin 3.9 g/dL (3.9-5) 05/01/18 16:17 Albumin/Globulin Ratio 1.5 % 05/01/18 16:17 Urine Color Colorless (Yellow) 05/01/18 17:10 Urine Turbidity Clear (Clear) 05/01/18 17:10 Urine pH 7.0 (5.0-7.0) 05/01/18 17:10 Ur Specific [place] 1.005 (1.003-1.030) 05/01/18 17:10 Urine Protein <15 mg/dl mg/dL (Negative) 05/01/18 17:10 Urine Glucose (UA) Neg mg/dL (Negative) 05/01/18 17:10 Urine Ketones Neg mg/dL (Negative) 05/01/18 17:10 Urine Blood Neg (Negative) 05/01/18 17:10 Urine Nitrite Neg (Negative) 05/01/18 17:10 Urine Bilirubin Neg (Negative) 05/01/18 17:10 Urine Urobilinogen < 2.0 mg/dL (<2.0) 05/01/18 17:10 Ur Leukocyte Esterase Neg (Negative) 05/01/18 17:10 Urine WBC (Auto) 0.0 /HPF (0.0-6.0) 05/01/18 17:10 Urine RBC (Auto) < 1.0 /HPF (0.0-6.0) 05/01/18 17:10
[2018-05-02] MEDS ORDERED: POTASSIUM CHLORIDE 20 MEQ PO SCH (10:00)
[2018-05-02] MEDS ORDERED: PALIPERIDONE 3 MG PO SCH (10:00)
[2018-05-02] MEDS ORDERED: NON-FORMULARY (Ferrous Sulfate [Ferrous Sulfate] 325 MG) PO SCH (10:00)
[2018-05-02] MEDS: FEOSOL PO SCH (11:41)
[2018-05-02] MEDS: ASPIRIN PO SCH (11:41)
[2018-05-02] MEDS: KEPPRA PO SCH ×2 (11:41→21:52)
[2018-05-02] MEDS: ZOLOFT PO SCH (11:41)
[2018-05-02] MEDS: CLARITIN PO SCH (11:42)
[2018-05-02] MEDS: K-DUR PO SCH (11:42)
[2018-05-02] MEDS: HALDOL PO SCH ×2 (11:46→21:52)
[2018-05-02] MEDS: FLONASE NS SCH (11:46)
[2018-05-02 12:58] LABS: BUN/Creatinine Ratio 15; Blood Urea Nitrogen 6 mg/dL (7-17); Calcium 8.7 mg/dL (8.4-10.2); Hemolysis Index 16
--- NOTE | 2018-05-02 14:04 | Magnetic Resonance Report ---
MRI OF THE BRAIN WITHOUT CONTRAST: HISTORY: Stroke PROCEDURE: Multiplanar, multisequence MR imaging of the brain without IV contrast was performed. FINDINGS: Compared to a CT head dated 05/01/18. MRI demonstrates a moderate to large chronic cortical infarct throughout the right MCA distribution involving the right temporal lobe, right frontal lobe and anterior right parietal lobe. There is no evidence for diffusion restriction to suggest acute ischemia. No evidence for hemorrhage or mass effect. There is a prominent CSF space posterior to the cerebellum measuring 6.3 x 2.0 cm in axial plane with may represent an incidental arachnoid cyst. The midline structures are central. The basal cisterns are patent. Normal ventricular size. The orbital cavities and sella turcica demonstrate no abnormality. The visualized paranasal sinuses and mastoid air cells are well aerated. IMPRESSION: No acute intracranial process. Chronic right MCA infarct. Probable posterior fossa arachnoid cyst.
--- NOTE | 2018-05-02 14:05 | Magnetic Resonance Report ---
MRA HEAD WITHOUT CONTRAST HISTORY: Stroke. [facility] imaging with MIP reformations of the samish of [place] is submitted. Slightly limited exam by motion artifact. The arteries appear widely patent and free of hemodynamically significant stenosis, aneurysm or dissection. origin of the right [employer] is noted. IMPRESSION: Unremarkable MRA head.
--- NOTE | 2018-05-02 14:10 | Consultation ---
History of Present Illness Consult date: 05/02/18 Requesting physician: HUMAIRA TROY Reason for Consult: posssible stroke History of present illness: Patient is 62 year old female with history of mental retardation, seizure, hypertension, diabetes and paranoid schizophrenia. Patient brought to the emergency room via EMS from adult daycare for change in her mental status and staff stating that she is leaning more towards the right side. Unknown time of onset. Daycare staff noted that this is definitely a change for her. Apparently she suffered a subdural hematoma one month ago and is now in acute rehab. She was not operated for this. She is on multple seizure meds. The pt. was admitted to rule out stroke. This a.m. the pt. admits feeling better. She denies headache or pain. 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 denies: smoking, alcohol abuse Family history: diabetes, hypertension Medications and Allergies Allergies Allergy/AdvReac Type Severity Reaction Status Date / Time erythromycin base Allergy Rash Verified 12/08/17 13:56 [From E-Mycin] nitrofurantoin Allergy MUSCLE Verified 12/08/17 13:57 [From Macrobid] WEAKNESS,DECREASED MOBILITY vancomycin Allergy Rash Verified 12/08/17 13:56 amoxicillin AdvReac Vomiting Verified 05/01/18 19:09 Home Medications Medication Instructions Recorded Confirmed Last Taken Type Atorvastatin (Nf) [Lipitor (Nf)] 20 mg PO QDAY 12/08/17 05/02/18 04/30/18 20:00 History Azelastine 0.1% (Nf) [Astelin (Nf)] 2 spray INHALATION BID 12/08/17 05/02/18 05/01/18 08:[address] [DepaKOTE DR] 500 mg PO BID 12/08/17 05/02/18 05/01/18 08:00 History Docusate Sodium [Stool Softener] 100 mg PO BID 12/08/17 05/02/18 05/01/18 08:00 History Ferrous Sulfate 325 mg PO BID 12/08/17 05/02/18 05/01/18 08:00 History Fluticasone [Flonase] 2 spray NS QDAY 12/08/17 05/02/18 05/01/18 08:00 History Haloperidol 10 mg PO BID 12/08/17 05/02/18 05/01/18 08:00 History Levothyroxine [Synthroid] 50 mcg PO QAM 12/08/17 05/02/18 05/01/18 08:00 History Loratadine [Claritin] 10 mg PO DAILY 12/08/17 05/02/18 05/01/18 08:00 History Ondansetron [Zofran TAB] 4 mg PO Q8HR PRN 12/08/17 05/02/18 Unknown History Paliperidone [Paliperidone ER] 1.5 mg PO DAILY 12/08/17 05/02/18 05/01/18 08:00 History Phenytoin [Dilantin] 100 mg PO QAM 12/08/17 05/02/18 05/01/18 08:00 History Potassium Chloride [Klor-Con 10 meq PO DAILY 12/08/17 05/02/18 05/01/18 08:00 History Sprinkle] Sertraline [Zoloft] 100 mg PO QDAY 12/08/17 05/02/18 05/01/18 08:00 History amLODIPine [Norvasc] 10 mg PO DAILY 12/08/17 05/02/18 05/01/18 08:00 History levETIRAcetam [Keppra TAB] 1,000 mg PO BID 12/08/17 05/02/18 05/01/18 08:00 History Aspirin [Aspirin BABY CHEW TAB] 81 mg PO QDAY 05/02/18 05/02/18 05/01/18 08:00 History Clotrimazole/Betamethasone Dip 1 applicatio TP BID PRN 05/02/18 05/02/18 Unknown History [Lotrisone Cream] Linaclotide (Nf) [Linzess (Nf)] 290 mcg PO QDAY PRN 05/02/18 05/02/18 Unknown History Meloxicam 15 mg PO DAILY 05/02/18 05/02/18 05/01/18 08:00 History Metoprolol [Lopressor TAB] 50 mg PO BID 05/02/18 05/02/18 05/01/18 08:00 History Nystatin Cream [Mycostatin Cream] 1 applicatio TP BID 05/02/18 05/02/1819 08:00 History Phenytoin Sodium Extended 200 mg PO QPM 05/02/18 05/02/18 04/30/18 20:00 History Quetiapine Fumarate [Seroquel] 100 mg PO QAM 05/02/18 05/02/18 05/01/18 08:00 History Quetiapine Fumarate [Seroquel] 400 mg PO QPM 05/02/18 05/02/18 04/30/18 20:00 History Active Meds: Active Medications Acetaminophen (Tylenol) 650 mg PO Q4H PRN PRN Reason: Pain, Mild (1-3) Albuterol (Proventil) 2.5 mg IH Q3HRT PRN PRN Reason: Shortness Of Breath Aspirin (Aspirin) 325 mg PO QDAY [facility] Last Admin: 05/02/18 11:41 Dose: 325 mg Documented by: Atorvastatin Calcium (Lipitor) 40 mg PO QHS [facility] Last Admin: 05/01/18 22:53 Dose: 40 mg Documented by: Bisacodyl (Dulcolax) 10 mg NV QDAY PRN PRN Reason: Constipation Divalproex Sodium (Depakote Dr) 500 mg PO BID [facility] Last Admin: 05/02/18 11:41 Dose: 500 mg Documented by: Docusate Sodium (Colace) 100 mg PO PRN PRN PRN Reason: Constipation Ferrous Sulfate (Feosol) 325 mg PO DAILY [facility] Last Admin: 05/02/18 11:41 Dose: 325 mg Documented by: Fluticasone Propionate (Flonase) 100 mcg NS QDAY [facility] Last Admin: 05/02/18 11:46 Dose: Not Given Documented by: Haloperidol (Haldol) 10 mg PO BID [facility] Last Admin: 05/02/18 11:46 Dose: Not Given Documented by: Levetiracetam (Keppra) 2,000 mg PO BID [facility] Last Admin: 05/02/18 11:41 Dose: 2,000 mg Documented by: Levothyroxine Sodium (Synthroid) 50 mcg PO DAILY@0600 [facility] Last Admin: 05/02/18 05:28 Dose: 50 mcg Documented by: Loratadine (Claritin) 10 mg PO DAILY [facility] Last Admin: 05/02/18 11:42 Dose: 10 mg Documented by: Magnesium Hydroxide (Milk Of Magnesia) 30 ml PO Q4H PRN PRN Reason: Constipation Metoclopramide HCl (Reglan) 10 mg PO Q6H PRN PRN Reason: Nausea And Vomiting Miscellaneous Medication (Azelastine Hcl) 2 spray INHALATION BID [facility] Miscellaneous Medication (Paliperidone [Paliperidone Er]) 3 mg PO DAILY [facility] Ondansetron HCl (Zofran) 4 mg IV Q8H PRN PRN Reason: Nausea And Vomiting Ondansetron HCl (Zofran Odt) 4 mg PO Q8H PRN PRN Reason: Nausea And Vomiting Phenytoin (Dilantin) 100 mg PO Q8HR [facility] Last Admin: 05/02/18 13:02 Dose: 100 mg Documented by: Potassium Chloride (K-Dur) 20 meq PO QDAY [facility] Last Admin: 05/02/18 11:42 Dose: 20 meq Documented by: Promethazine HCl (Phenergan) 25 mg NV Q6H PRN PRN Reason: Nausea And Vomiting Quetiapine Fumarate (Seroquel) 200 mg PO BID [facility] Last Admin: 05/02/18 11:46 Dose: Not Given Documented by: Sertraline HCl (Zoloft) 100 mg PO QDAY [facility] Last Admin: 05/02/18 11:41 Dose: 100 mg Documented by: Sodium Chloride (Sodium Chloride Flush Syringe 10 Ml) 10 ml IV PRN PRN PRN Reason: LINE FLUSH Review of Systems ROS unobtainable: due to mental status Physical Examination - Vital Signs Vital Signs: Vital Signs BP Pulse Ox 135/56 94 05/01/18 16:01 05/01/18 16:01 - Physical Exam Narrative exam: General - Sitting up in bed, no acute distress. Patient is hard of hearing, need to shout for her attention. Her attention seems to drift from the examiner from time to time. Neurological exam - Speech fluent, oriented to place. Follows some commands. spotter driver - EOMs full. no nystagmus. Face with mild left droop V-1 thru V-3 intact to touch. Tongue midline, Hearing decreased bilaterally. Motor - symmetric against gravity. Pt. is not fully compliant with the exam. Reflexes - trace throughout. Sensory - intact to touch and pin throughout Cerebellar - She had difficulty comprehending FTN. fine finger movements and [place] done well. - Assessment Assessment Interval: Baseline - Level of Consciousness 1a. Level of Consciousness: alert/keenly responsive - LOC Questions 1b. LOC Questions: answers 1 question correctly - LOC Command 1c. LOC Commands: performs 1 task correctly - Best Gaze 2. Best Gaze: normal - Visual 3. Visual: no visual loss - Facial Palsy 4. Facial Palsy: normal symmetrical movement - Motor Arm 5b. Motor Arm Right: some gravity effort - Motor Leg 6a. Motor Leg Left: some gravity effort - Limb Ataxia 7. Limb Ataxia: absent - Sensory 8. Sensory: no response/quadraplegic - Best Language 9. Best Language: no aphasia - Dysarthria 10. Dysarthria: mild/moderate dysarthria - Extinction and Inattention 11. Extinction/Inattention: no abnormality Results - Laboratory Findings CBC and BMP: 05/01/18 16:17 05/02/18 12:11 Abnormal Lab Findings: Abnormal Labs 05/01/18 05/01/18 05/01/18 16:17 16:17 16:17 RBC 3.55 L MCH 33 H MCHC 36 H Monocytes % (Manual) 8.0 H APTT 49.6 H Thrombin Time < 13.0 L Sodium Chloride BUN Creatinine Glucose Total Creatine Kinase 18 L CK-MB (CK-2) Rel Index 5.5 H 05/01/18 05/02/18 16:17 12:11 RBC MCH MCHC Monocytes % (Manual) APTT Thrombin Time Sodium 128 L 133 L Chloride 92.0 L 96.8 L BUN 6 L Creatinine 0.4 L 0.4 L Glucose 101 H 101 H Total Creatine Kinase CK-MB (CK-2) Rel Index Assessment and Plan 62 year old female with history of subdural hematoma, hypertension, hypothyroidism, paranoid schizophrenia and seizures was brought to ER on 05/01 with altered mental status and leaning to the right. This a.m. she is responding appropriately, denies headache or weakness/numbness. Admission Na was 128. She appears to have periods of inattentiveness, suspicious for partial complex seizure activity. MRI is without acute changes. Stable e ncephalomalacia in right hemisphere from prior hemorrhage. Echo reveals EF of 55 to 60% Plan - Check anticonvulsant levels EEG Thyroid panel, B-12 level.
[2018-05-02 15:55] LABS: Free T4 (Free Thyroxine) 0.98 ng/dL (0.76-1.46)
[2018-05-03] MEDS: DILANTIN PO SCH ×2 (05:34→15:19)
[2018-05-03] MEDS: SYNTHROID PO SCH (05:35)
[2018-05-03 07:07] LABS: Chol/HDL Ratio 2.9 %
[2018-05-03] MEDS: FEOSOL PO SCH (11:03)
[2018-05-03] MEDS: ASPIRIN PO SCH (11:03)
[2018-05-03] MEDS: KEPPRA PO SCH (11:03)
[2018-05-03] MEDS: ZOLOFT PO SCH (11:03)
[2018-05-03] MEDS: CLARITIN PO SCH (11:03)
[2018-05-03] MEDS: K-DUR PO SCH (11:03)
[2018-05-03] MEDS: HALDOL PO SCH (11:04)
[2018-05-03] MEDS: FLONASE NS SCH (11:05)
--- NOTE | 2018-05-03 11:06 | Discharge Summary ---
Providers - Providers Date of Admission: 05/01/18 18:03 Attending physician: HUMAIRA TROY MD 05/01/18 18:03 Occupational Therapy Evaluate and Treat [CONS] Routine Comment: Reason For Exam: Neuro deficits Physical Therapy Evaluation and Treat [CONS] Routine Comment: Reason For Exam: Neuro deficits 05/01/18 18:04 Speech Therapy Evaluation and Treat [CONS] Routine Reason For Exam: swallow eval 05/02/18 07:14 Consult to Physician [CONS] Routine Comment: Consulting Provider: ALEXUS ABDUL Physician Instructions: Reason For Exam: cva Primary care physician: CONY REESE Hospitalization Reason for admission: acute metabolic encephalopathy Condition: Stable Hospital course: 62 YO Female with MR, Seizure, HTN, DM, Paranoid Schizophrenia, Hypothyroidism, Chronic Nonoperative SDH presents to ED for evaluation. Pt is minimally verbal and unable to provide history. Pt caregiver is at bedside and provides history. As per caregiver, the patient was attending Adult Daycare today when staff noticed right sided weakness and also change in metal status. EMS notified and upon arrival the patient was found to have suspected neurologic deficit. A code stroke was called. Pt transported to [facility]. Pt seen and evaluated in ED and found to have suspected neurologic deficit. Pt admitted to Telemetry, and initiated on CVA protocol. CXR 05/01/18: IMPRESSION: Cardiomegaly with decreased inspiration. No other radiographic evidence of acute disease. CT head: 05/01/18 IMPRESSION: 1. No evidence of an acute intracranial process, intracranial hemorrhage or mass effect. 2. Previous right frontotemporal craniotomy with encephalomalacia in the right frontal and temporal lobes deep to the craniotomy site and increased dural thickness and dural calcification deep to the craniotomy site. Patient sodium was corrected. Neurology recommended increasing Dilantin dose, this was conveyed to the painting department supervisor who stated that she will like to follow up the patients primary neurologist as the patient is already on too many medications. Our recommendations still stands. Patient clinically improved and ready for discharge. Acute Metabolic Encephalopathy secondary to Hyponatremia Right Hemiparesis Resolved Development delay, gross motor HTN DIABETES Mellitus with Hyperglycemia Hyponatremia Seizure Paranoid Schizophrenia D Disposition: [id number] Time spent for discharge: 35 min Core Measure Documentation - Palliative Care Palliative Care/ Comfort Measures: Not Applicable - Core Measures Any of the following diagnoses?: none Exam - Physical Exam Narrative exam: General appearance: Present: obese - Neck Neck: Present: supple, normal ROM - Respiratory Respiratory effort: normal Respiratory: bilateral: CTA - Cardiovascular Heart Sounds: Present: S1 & S2. Absent: rub, click - Extremities Extremities: pulses symmetrical, No edema Peripheral Pulses: within normal limits - Abdominal General gastrointestinal: Present: soft, non-tender, non-distended, normal bowel sounds Female genitourinary: Present: normal - Integumentary Integumentary: Present: clear, warm, dry - Musculoskeletal Musculoskeletal: moves ext. generalized weakness and chronic - Psychiatric Psychiatric: no appropriate mood/affect, no intact judgment & insight, no memory intact - Neurologic Neurologic: focal deficits, no gait normal - Constitutional Vitals: Temp Pulse Resp BP Pulse Ox 98.1 F 83 20 150/68 94 05/03/18 09:51 05/03/18 09:51 05/03/18 09:51 05/03/18 09:51 05/03/18 10:00 Plan Activity: advance as tolerated, fall precautions Diet: low fat Special Instructions: record daily weights, record daily BP diary Additional Instructions: follow with personal neurologist and psychiatrist Follow up with: PRIMARY CARE, [Referring] - 3-5 Days Prescriptions: Phenytoin [Dilantin] 200 mg PO QAM #30 capsule.er
--- NOTE | 2018-05-03 13:14 | Vascular Lab Report ---
PROCEDURE: VL CAROTID DUPLEX BILAT TECHNIQUE: Real-time color duplex sonography was performed of the bilateral cervical carotid arterie s and images are submitted for interpretation. HISTORY: Stroke COMPARISONS: None FINDINGS: Right: The common carotid artery appears normal with normal color flow and vascular waveforms. There is mild intimal thickening in the common carotid artery. The carotid bulb appears normal. There is a normal spectral tracing in the right proximal and distal internal carotid arteries and visualized ext ernal carotid artery. Flow in the right vertebral artery is antegrade. Maximum systolic velocity in t he internal carotid artery is 73.6 cm/s. Internal carotid end-diastolic velocity is 18.4 cm/s. The IC to CC ratio is 0.66. ? Left: The common carotid artery appears normal with normal color flow and vascular waveforms. There i s mild intimal thickening in the common carotid artery. The carotid bulb appears normal. There is a n ormal spectral tracing in the left proximal and distal internal carotid arteries and visualized exter nal carotid artery. Flow in the left vertebral artery is antegrade. Maximum systolic velocity in the internal carotid artery is 81.0 cm/s. Internal carotid end-diastolic velocity is 20.8 cm/s. The IC to CC ratio is 0.63. IMPRESSION: Mild intimal thickening in the bilateral common carotid arteries. Otherwise, Normal bilateral carotid duplex This document is electronically signed by Kenisha Bernstein MD., May 01 2018 09:45:13 PM ET
[2018-05-03 16:25] VITALS: BP 155/89
== END 2018-05-03 18:11 | disposition home health service (06) | DRG 640 ==
LOC: ED 15:50 → 4A 18:03
PROVIDERS: ADMIT Internal Medicine; ATTEND Internal Medicine
DX: E87.1 Hypo-osmolality and hyponatremia (principal); G93.41 Metabolic encephalopathy; F20.0 Paranoid schizophrenia; G81.91 Hemiplegia, unspecified affecting right dominant side; E11.65 Type 2 diabetes mellitus with hyperglycemia; F79 Unspecified intellectual disabilities; I10 Essential (primary) hypertension; E03.9 Hypothyroidism, unspecified; Z83.3 Family history of diabetes mellitus; Z82.49 Family history of ischemic heart disease and other diseases of the circulatory system; Z88.1 Allergy status to other antibiotic agents; Z88.8 Allergy status to other drugs, medicaments and biological substances; Z79.82 Long term (current) use of aspirin; Z79.899 Other long term (current) drug therapy; Z79.84 Long term (current) use of oral hypoglycemic drugs
CPT/HCPCS: 36415; 70450; 70544; 70551; 71045; 80048; 80061; 80076; 80164; 80185; 81001; 82550; 82553; 82607; 82962; 84439; 84443; 84484; 85007; 85025; 85610; 85670; 85730; 87116; 93005; 93010; 93306; 93880; 95819; G0378; A9270-GY

== ENCOUNTER 2018-07-25 15:11 | Emergency (ER) | payer MEDICARE ==
--- NOTE | 2018-07-25 16:41 | Emergency Department Report ---
ED General Adult HPI - General Chief complaint: Weakness Stated complaint: WEAKNESS Time Seen by Provider: 07/25/18 16:29 Source: patient, EMS (ems notes not available at time of chart dictation), RN notes reviewed, old records reviewed Mode of arrival: Stretcher Limitations: Other (the patient is disorganized. The patient is a poor historian.) - History of Present Illness Initial comments: This is a 63-year-old female. 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 Patient admitted to this hospital in April for questionable stroke. Had extensive workup at that time, including negative MRI, negative MRA of the brain. Patient seen in evaluation with consulting stroke neurology. Patient was reportedly recently admitted to [facility] for sodium derangement. The patient is sent to the emergency room today for weakness, and questionable ankle pain. The patient is a poor historian. She is asking for her left IV to be removed. She does not make any complaints of pain otherwise. The patient is not able to describe exacerbating or relieving factors. She is not able to describe qualitative nature of her symptoms. She is able to answer basic yes no questions, and indicates no headache, chest pain, abdominal pain. -: unknown Radiation: other Consistency: other Improves with: other Worsens with: other - Related Data Home Medications Medication Instructions Recorded Confirmed Last Taken Atorvastatin (Nf) [Lipitor (Nf)] 20 mg PO QDAY 12/08/17 05/02/18 04/30/18 20:00 Azelastine 0.1% (Nf) [Astelin (Nf)] 2 spray INHALATION BID 12/08/17 05/02/18 05/01/18 08:00 Divalproex [Depakote Dr] 500 mg PO BID 12/08/17 05/02/18 05/01/18 08:00 Docusate Sodium [Stool Softener] 100 mg PO BID 12/08/17 05/02/18 05/01/18 08:00 Ferrous Sulfate 325 mg PO BID 12/08/17 05/02/18 05/01/18 08:00 Fluticasone [Flonase] 2 spray NS QDAY 12/08/17 05/02/18 05/01/18 08:00 Haloperidol 10 mg PO BID 10/05/02/18 05/01/18 08:00 Levothyroxine [Synthroid] 50 mcg PO QAM 12/08/17 05/02/18 05/01/18 08:00 Loratadine [Claritin] 10 mg PO DAILY 12/08/17 05/02/18 05/01/18 08:00 Ondansetron [Zofran TAB] 4 mg PO Q8HR PRN 12/08/17 05/02/18 Unknown Paliperidone [Paliperidone ER] 1.5 mg PO DAILY 12/08/17 05/02/18 05/01/18 08:00 Potassium Chloride [Klor-Con 10 meq PO DAILY 12/08/17 05/02/18 05/01/18 08:00 Sprinkle] Sertraline [Zoloft] 100 mg PO QDAY 12/08/17 05/02/18 05/01/18 08:00 amLODIPine [Norvasc] 10 mg PO DAILY 12/08/17 05/02/18 05/01/18 08:00 levETIRAcetam [Keppra TAB] 1,000 mg PO BID 12/08/17 05/02/18 05/01/18 08:00 Aspirin [Aspirin BABY CHEW TAB] 81 mg PO QDAY 05/02/18 05/02/18 05/01/18 08:00 Clotrimazole/Betamethasone Dip 1 applicatio TP BID PRN 05/02/18 05/02/18 Unknown [Lotrisone Cream] Linaclotide (Nf) [Linzess (Nf)] 290 mcg PO QDAY PRN 05/02/18 05/02/18 Unknown Meloxicam 15 mg PO DAILY 05/02/18 05/02/18 05/01/18 08:00 Metoprolol [Lopressor TAB] 50 mg PO BID 05/02/18 05/02/18 05/01/18 08:00 Nystatin Cream [Mycostatin Cream] 1 applicatio TP BID 05/02/18 05/02/18 05/01/18 08:00 Phenytoin Sodium Extended 200 mg PO QPM 05/02/18 05/02/18 04/30/18 20:00 Quetiapine Fumarate [SEROquel] 400 mg PO QPM 05/02/18 05/02/18 04/30/18 20:00 Quetiapine Fumarate [Seroquel] 100 mg PO QAM 05/02/18 05/02/18 05/01/18 08:00 Previous Rx's Medication Instructions Recorded Last Taken Type Phenytoin [Dilantin] 200 mg PO QAM #30 capsule.er 05/03/18 Unknown Rx Allergies Allergy/AdvReac Type Severity Reaction Status Date / Time erythromycin base Allergy Rash Verified 12/08/17 13:56 [From E-Mycin] nitrofurantoin Allergy MUSCLE Verified 12/08/17 13:57 [From Macrobid] WEAKNESS,DECREASED MOBILITY vancomycin Allergy Rash Verified 12/08/17 13:56 amoxicillin AdvReac Vomiting Verified 05/01/18 19:09 ED Review of Systems ROS: Stated complaint: WEAKNESS Other details as noted in HPI Comment: Unobtainable due to pts medical conditions ED Past Medical Hx - Past Medical History Previous Medical History?: Yes Hx Hypertension: Yes Hx Congestive Heart Failure: No Hx Diabetes: Yes Hx Seizures: Yes Hx Asthma: No Hx COPD: No Hx HIV: No Additional medical history: Scizophrenia, mild mental retardation - Social History Smoking Status: Never Smoker Substance Use Type: None - Medications Home Medications: Home Medications Medication Instructions Recorded Confirmed Last Taken Type Atorvastatin (Nf) [Lipitor (Nf)] 20 mg PO QDAY 12/08/17 05/02/18 04/30/18 20:00 History Azelastine 0.1% (Nf) [Astelin (Nf)] 2 spray INHALATION BID 12/08/17 05/02/18 05/01/18 08:00 History Divalproex [Depmilagros Baldwin] 500 mg PO BID 12/08/17 05/02/18 05/01/18 08:00 History Docusate Sodium [Stool Softener] 100 mg PO BID 12/08/17 05/02/18 05/01/18 08:00 History Ferrous Sulfate 325 mg PO BID 12/08/17 05/02/18 05/01/18 08:00 History Fluticasone [Flonase] 2 spray NS QDAY 12/08/17 05/02/18 05/01/18 08:00 History Haloperidol 10 mg PO BID 12/08/17 05/02/18 05/01/18 08:00 History Levothyroxine [Synthroid] 50 mcg PO QAM 12/08/17 05/02/18 05/01/18 08:00 History Loratadine [Claritin] 10 mg PO DAILY 12/08/17 05/02/18 05/01/18 08:00 History Ondansetron [Zofran TAB] 4 mg PO Q8HR PRN 12/08/17 05/02/18 Unknown History Paliperidone [Paliperidone ER] 1.5 mg PO DAILY 12/08/17 05/02/18 05/01/18 08:00 History Potassium Chloride [Klor-Con 10 meq PO DAILY 12/08/17 05/02/18 05/01/18 08:00 History Sprinkle] Sertraline [Zoloft] 100 mg PO QDAY 12/08/17 05/02/18 05/01/18 08:00 History amLODIPine [Norvasc] 10 mg PO DAILY 12/08/17 05/02/18 05/01/18 08:00 History levETIRAcetam [Keppra TAB] 1,000 mg PO BID 12/08/17 05/02/18 05/01/18 08:00 History Aspirin [Aspirin BABY CHEW TAB] 81 mg PO QDAY 05/02/18 05/02/18 05/01/18 08:00 History Clotrimazole/Betamethasone Dip 1 applicatio TP BID PRN 05/02/18 05/02/18 Unknown History [Lotrisone Cream] Linaclotide (Nf) [Linzess (Nf)] 290 mcg PO QDAY PRN 05/02/18 05/02/18 Unknown History Meloxicam 15 mg PO DAILY 05/02/18 05/02/18 05/01/18 08:00 History Metoprolol [Lopressor TAB] 50 mg PO BID 05/02/18 05/02/18 05/01/18 08:00 History Nystatin Cream [Mycostatin Cream] 1 applicatio TP BID 05/02/18 05/02/18 05/01/18 08:00 History Phenytoin Sodium Extended 200 mg PO QPM 05/02/18 05/02/18 04/30/18 20:00 History Quetiapine Fumarate [SEROquel] 400 mg PO QPM 05/02/18 05/02/18 04/30/18 20:00 History Quetiapine Fumarate [Seroquel] 100 mg PO QAM 05/02/18 05/02/18 05/01/18 08:00 History Phenytoin [Dilantin] 200 mg PO QAM #30 capsule.er 05/03/18 Unknown Rx ED Physical Exam - General Limitations: Other (patient is developmentally delayed. The patient is a poor historian.) General appearance: alert, anxious, obese - Head Head exam: Present: atraumatic, normocephalic - Eye Eye exam: Present: normal appearance - ENT ENT exam: Present: normal orophraynx, mucous membranes moist, normal external ear exam - Neck Neck exam: Present: normal inspection, full ROM. Absent: tenderness, meningismus - Respiratory Respiratory exam: Present: normal lung sounds bilaterally. Absent: respiratory distress - Cardiovascular Cardiovascular Exam: Present: regular rate, normal rhythm, normal heart sounds. Absent: bradycardia, tachycardia, irregular rhythm, systolic murmur, diastolic murmur, rubs, gallop - GI/Abdominal GI/Abdominal exam: Present: soft. Absent: distended, tenderness, guarding, rebound, rigid, pulsatile mass - Rectal Rectal exam: Present: normal inspection, other (band and cuff cutter by kaylene Arteaga) - Extremities Exam Extremities exam: Present: normal inspection, full ROM, pedal edema, other (2+ pulses noted in the bilateral upper, lower extremities. Compartments soft. No long bony tenderness. The pelvis is stable.). Absent: calf tenderness - Back Exam Back exam: Present: normal inspection, full ROM. Absent: tenderness, CVA tenderness (R), CVA tenderness (L), paraspinal tenderness, vertebral tenderness - Neurological Exam Neurological exam: Present: alert (patient is alert to name. Patient moving 4 extremities. Patient has baseline cognitive dysfunction. The patient is a poor historian. Sensation is intact to pinch in 4 extremities. There is no obvious facial droop. The tongue is midline.) - Psychiatric Psychiatric exam: Present: anxious - Skin Skin exam: Present: warm, dry, intact, normal color. Absent: rash ED Course Vital Signs 07/25/18 07/25/18 07/25/18 15:29 18:05 19:41 Temperature 98.9 F Pulse Rate 79 Respiratory 18 16 18 Rate Blood Pressure 125/83 Blood Pressure [Right] O2 Sat by Pulse 96 Oximetry 07/25/18 19:43 Temperature 98.4 F Pulse Rate 76 Respiratory 18 Rate Blood Pressure Blood Pressure 153/53 [Right] O2 Sat by Pulse Oximetry - Reevaluation(s) Reevaluation #1: 07/25/18 18:16 Differential diagnosis, including but not limited to, pneumonia, urinary tract infection, electrolyte derangement, chronic cognitive delay, chronic schizophrenia, Gen. medical evaluation Assessment and plan: 63-year-old female, multiple chronic medical issues, developmentally delayed, with reported history of weakness, and not walking secondary to questionable ankle pain. The patient is afebrile with reassuring vital signs. Her ankle is nontender. She is moving 4 extremities. Her physic al exam appears to be unremarkable. Multiple chronic incidental findings noted. Urinalysis pending. Formal CT scan of the brain interpretation is pending. X-rays have been ordered. 07/25/18 20:18 Reevaluation #2: 07/25/18 20:15 Patient reassessed multiple times while in the department. She is resting comfortably, and in no acute distress. Vital signs remained stable. We will obtain noncontrast CT scan of the bony pelvis, as pelvic fracture is suggested on x-rays. 07/25/18 20:17 07/26/18 00:48 Patient is reassessed. Noncontrast CT scan of the pelvis shows no fracture. Patient resting comfortably, and stretcher, and in no acute distress. Please note that there was a significant delay in patient's final disposition, as the interpreting radiology group, [facility], was experiencing technical difficulties. Nevertheless, the patient at this point in time has not demonstrated an objectively emergent medical condition that requires hospitalization. Her caregiver did stop by, and endorse concern over her sodium of 132, and indicated that when the patient's sodium runs a little bit low, she does have difficulty with ambulation. Patient is on sodium chloride tablets, and she was given oral sodium chloride tablet in the emergency room, as well as IV fluids. Furthermore, the patient has multiple chronic reasons to have poor ambulation, including cognitive delay, schizophrenia, history of seizures, and presumed old stroke. May also be a com ponent of diabetic neuropathy. The case management consult has been requested to see the patient would benefit from outpatient physical therapy and/or evaluation. ED Medical Decision Making - Lab Data Result diagrams: 07/25/18 17:23 07/25/18 17:23 Vital Signs 07/25/18 15:29 Temperature 98.9 F Pulse Rate 79 Respiratory 18 Rate Blood Pressure 125/83 O2 Sat by Pulse 96 Oximetry Labs 07/25/18 07/25/18 07/25/18 17:23 17:23 17:23 WBC 11.3 H RBC 3.81 Hgb 12.0 Hct 34.9 MCV 92 MCH 32 MCHC 34 RDW 13.7 Plt Count 171 Lymph % (Auto) 15.8 [place] % (Auto) 8.1 H Eos % (Auto) 0.8 Baso % (Auto) 0.4 Lymph # 1.8 [place] # 0.9 H Eos # 0.1 Baso # 0.0 Seg Neutrophils % 74.9 H Seg Neutrophils # 8.5 H PT 13.5 INR 0.97 APTT 32.2 Thrombin Time 13.8 L Sodium Potassium Chloride Carbon Dioxide Anion Gap BUN Creatinine Estimated GFR BUN/Creatinine Ratio Glucose Calcium Magnesium 1.90 Total Bilirubin AST ALT Alkaline Phosphatase Total Creatine Kinase 17 L Troponin T < 0.010 Total Protein Albumin Albumin/Globulin Ratio TSH Acetaminophen Valproic Acid Plasma/Serum Alcohol 07/25/18 07/25/18 07/25/18 17:23 17:23 17:23 WBC RBC Hgb Hct MCV MCH MCHC RDW Plt Count Lymph % (Auto) [place] % (Auto) Eos % (Auto) Baso % (Auto) Lymph # [place] # Eos # Baso # Seg Neutrophils % Seg Neutrophils # PT INR APTT Thrombin Time Sodium Potassium Chloride Carbon Dioxide Anion Gap BUN Creatinine Estimated GFR BUN/Creatinine Ratio Glucose Calcium Magnesium Total Bilirubin AST ALT Alkaline Phosphatase Total Creatine Kinase Troponin T Total Protein Albumin Albumin/Globulin Ratio TSH 2.770 Acetaminophen < 5.0 L Valproic Acid 37.7 L Plasma/Serum Alcohol 07/25/18 07/25/18 17:23 17:23 WBC RBC Hgb Hct MCV MCH MCHC RDW Plt Count Lymph % (Auto) [place] % (Auto) Eos % (Auto) Baso % (Auto) Lymph # [place] # Eos # Baso # Seg Neutrophils % Seg Neutrophils # PT INR APTT Thrombin Time Sodium 132 L Potassium 4.9 Chloride 95.3 L Carbon Dioxide 23 Anion Gap 19 BUN 8 Creatinine 0.6 L Estimated GFR > 60 BUN/Creatinine Ratio 13 Glucose 115 H Calcium 9.3 Magnesium Total Bilirubin 0.30 AST 6 ALT 5 L Alkaline Phosphatase 97 Total Creatine Kinase Troponin T Total Protein 7.5 Albumin 4.1 Albumin/Globulin Ratio 1.2 TSH Acetaminophen Valproic Acid Plasma/Serum Alcohol < 0.01 - EKG Data -: EKG Interpreted by Me EKG shows normal: sinus rhythm Rate: normal - EKG Data When compared to previous EKG there are: no significant change 07/25/18 18:14 EKG shows a sinus rhythm, 3 bpm, normal axis, QTC prolonged, motion artifact, no endorsement of chest pain, some left atrial enlargement, abnormal EKG, not consistent with ST elevation myocardial infarction, appears grossly unchanged from prior EKG from 05/01/2018. - Radiology Data Radiology results: pending, report reviewed, image reviewed interpreted by me: X-ray of the chest shows poor inspiratory effort, chronic appearing deformity to left shoulder, enlarged cardiac silhouette, may be related to portable technique, no obvious infiltrates. X-rays of the knee shows right-sided hardware, DJD, no acute disease. X-ray of the anklNo definite fracture is identified. Noncontrast CT scan of brain suggests no acute findings. Print Report Referring Physician: GARCIA RODRIGUEZ Patient Name: SHEILA GALLAGHER Date of : 1955 Sex: Female Report Date: 2018-07-25 Report Status: [place] [address] Cat Scan Report Signed Patient: SHEILA GALLAGHER MR#: [id number] : 1955 Acct:[id number] Age/Sex: 63 / F ADM Date: 07/25/18 Loc: ED Attending Dr: Ordering Physician: GARCIA RODRIGUEZ MD Date of Service: 07/25/18 Procedure(s): CT head/brain wo con Accession Number(s): [id number] cc: GARCIA RODRIGUEZ MD PROCEDURE: CT HEAD/BRAIN WO CON TECHNIQUE: Computerized tomography of the head was performed without contrast material. CT DOSE LENGTH PRODUCT: 920.5 mGycm HISTORY: weak ams COMPARISONS: 05/01/2018 . FINDINGS: There has been prior right frontal and temporal craniotomy. There is stable underlying right frontal and temporal lobe encephalomalacia. There is no CT evidence of intracranial mass, hemorrhage, acute territorial infarction, or hydrocephalus. Intracranial arteries are symmetric in density. Paranasal sinuses are aerated. There is a small amount of fluid in the right mastoid. IMPRESSION: There has been right frontal and right temporal craniotomy, with underlying encephalomalacia. No CT evidence of acute intracranial abnormality . This document is electronically signed by Mya Alicia MD., July 25 2018 06:08:44 PM ET Transcribed By: [facility] Dictated By: MYA ALICIA M.D. Electronically Authenticated By: MYA ALICIA M.D. Signed Date/Time: 07/25/181809 Print Report Referring Physician: GARCIA RODRIGUEZ Patient Name: SHEILA GALLAGHER Date of : 1955 Sex: Female Report Date: 2018-07-25 Report Status: Finalized Findings [facility] [address] [place] [address] XRay Report Signed Patient: SHEILA GALLAGHER MR#: [id number] : 1955 Acct:[id number] Age/Sex: 63 / F ADM Date: 07/25/18 Loc: ED Attending Dr: Ordering Physician: GARCIA RODRIGUEZ MD Date of Service: 07/25/18 Procedure(s): XR pelvis 1-2V Accession Number(s): [id number] cc: GARCIA RODRIGUEZ MD Fluoro T alex In Minutes: PROCEDURE: XR PELVIS 1-2V TECHNIQUE: AP view of the pelvis HISTORY: leg pain. Can't Walk COMPARISONS: None . FINDINGS: There is subtle cortical deformity involving the symphysis pubis on both sides of midline. I cannot exclude fracture in this region. No other evidence for acute fracture or dislocation is seen. Joint spaces are maintained. Sacroiliac joints are normal. Bony mineralization is normal. IMPRESSION: Possible acute fractures involving the symphysis pubis on both sides of midline. This document is electronically signed by Salma Edwards MD., July 25 2018 08:02:01 PM ET Transcribed By: [facility] Dictated By: SALMA EDWARDS MD Electronically Authenticated By: SALMA EDWARDS MD Signed Date/Time: 07/25/182003 Print Report Referring Physician: GARCIA RODRIGUEZ Patient Name: SHEILA GALLAGHER Date of : 1955 Sex: Female Report Date: 2018-07-25 Report Status: Finalized Findings [address] [address] XRay Report Signed Patient: SHEILA GALLAGHER MR#: [id number] : 1955 Acct:[id number] Age/Sex: 63 / F ADM Date: 07/25/18 Loc: ED Attending Dr: Ordering Physician: GARCIA RODRIGUEZ MD Date of Service: 07/25/18 Procedure(s): XR ankle BILAT 2V Accession Number(s): [id number] cc: GARCIA RODRIGUEZ MD Fluoro Time In Minutes: PROCEDURE: XR ANKLE BILAT 2V TECHNIQUE: Bilateral ankles, 2 views HISTORY: leg pain cant walk COMPARISONS: None available FINDINGS: No fracture or dislocation. Ankle mortise and talar dome are intact. No radiopaque foreign body. IMPRESSION: No fracture or dislocation. This document is electronically signed by Mya Alicia MD., July 25 2018 06:39:41 PM ET Transcribed By: [facility] Dictated By: MYA ALICIA M.D. Electronically Authenticated By: MYA ALICIA M.D. Signed Date/Time: 07/25/18 184 Print Report Referring Physician: GARCIA RODRIGUEZ Patient Name: SHEILA GALLAGHER Date of : 1955 Sex: Female Report Date: 2018-07-25 Report Status: Finalized Findings [address] [address] XRay Report Signed Patient: SHEILA GALLAGHER MR#: [id number] : 1955 Acct:[id number] Age/Sex: 63 / F ADM Date: 07/25/18 Loc: ED Attending Dr: Ordering Physician: GARCIA RODRIGUEZ MD Date of Service: 07/25/18 Procedure(s): XR knee BILAT 1-2V Accession Number(s): [id number] cc: GARCIA RODRIGUEZ MD Fluoro Time In Minutes: PROCEDURE: XR KNEE BILAT 1-2V TECHNIQUE: Bilateral knees, 2 views HISTORY: leg pain cant walk COMPARISONS: None available FINDINGS: There has been prior right knee arthroplasty. Hardware is in the expected position. No fracture of the [place] bone is seen. No left knee fracture or dislocation is seen. There is left knee tricompartmental osteoarthritis, with joint space na rrowing and osteophyte formation. Small left knee joint effusion. IMPRESSION: No acute osseous abnormality is seen. This document is electronically signed by Mya Alicia MD., July 25 2018 06:42:20 PM ET Transcribed By: [facility] Dictated By: MYA ALICIA M.D. Electronically Authenticated By: MYA ALICIA M.D. Signed Date/Time: 07/25/18 184 Print Report Referring Physician: GARCIA RODRIGUEZ Patient Name: SHEILA GALLAGHER Date of : 1955 Sex: Female Report Date: 2018-07-25 Report Status: [place] [address] Cat Scan Report Signed Patient: SHEILA GALLAGHER MR#: [id number] : 1955 Acct:[id number] Age/Sex: 63 / F ADM Date: 07/25/18 Loc: ED Attending Dr: Ordering Physician: GARCIA RODRIGUEZ MD Date of Service: 07/25/18 Procedure(s): CT pelvis wo con Accession Number(s): [id number] cc: GARCIA RODRIGUEZ MD PROCEDURE: CT PELVIS WO CON Unenhanced CT of the pelvis was performed and data was reformatted in the sagittal and coronal planes. Comparison is made to radiographs of earlier in the day. No acute fracture is seen in the pelvis or hips. There are old healed fractures of the right pubis and right ischium. No pelvic hematoma is identified. There is a normal appendix. There is no evidence of diverticulitis. There is no adnexal mass. The urinary bladder is within normal limits. IMPRESSION: No acute fracture is seen in the pelvis or hips This document is electronically signed by Mike Pitts MD., July 25 2018 09:57:45 PM ET Transcribed By: [facility] Dictated By: MIKE PITTS MD Electronically Authenticated By: MIKE PITTS MD Signed Date/Time: 07/26/18 0029 Critical care attestation.: If time is entered above; I have spent that time in minutes in the direct care of this critically ill patient, excluding procedure time. ED Disposition Clinical Impression: General medical exam, History of fall, Developmental delay, gross motor Disposition: DC/TX-70 ANOTHER TYPE HLTHCARE Is pt being admited?: No Does the pt Need Aspirin: No Condition: Stable Additional Instructions: Follow-up with her primary care doctor within the next 2 weeks. a management consult has been requested to determine if the patient is eligible for home physical therapy, which may assist with frequent falls. Patient has multiple reasons to have falls, including developmental delay, diabetes, schizophrenia, and prior MRIs have demonstrated possible small strokes. Please return to the emergency room right away with new, worsening or different symptoms, or symptoms not present on the initial emergency room evaluation. Referrals: EDELMIRA JOHNSON MD [Primary Care Provider] - 3-5 Days
[2018-07-25 17:35] LABS: Basophils % (Auto) 0.4 % (0.0-1.8); Eosinophils # (Auto) 0.1 K/mm3 (0.0-0.4); Eosinophils % (Auto) 0.8 % (0.0-4.3); Hematocrit 34.9 % (30.3-42.9); Lymphocytes # (Auto) 1.8 K/mm3 (1.2-5.4); Lymphocytes % (Auto) 15.8 % (13.4-35.0); Mean Corpuscular HGB Conc 34 % (30-34); Mean Corpuscular Volume 92 fl (79-97); Monocytes # (Auto) 0.9 K/mm3 (0.0-0.8); Monocytes % (Auto) 8.1 % (0.0-7.3); Platelet Count 171 K/mm3 (140-440); Red Blood Count 3.81 M/mm3 (3.65-5.03); Red Cell Distribution Width 13.7 % (13.2-15.2)
[2018-07-25 17:49] LABS: Alanine Aminotransferase 5 units/L (7-56); Albumin 4.1 g/dL (3.9-5); BUN/Creatinine Ratio 13; Blood Urea Nitrogen 8 mg/dL (7-17); Calcium 9.3 mg/dL (8.4-10.2); Hemolysis Index 5
[2018-07-25 17:52] LABS: INR 0.97 (0.87-1.13)
[2018-07-25 17:53] LABS: Partial Thromboplastin Time 32.2 Sec. (24.2-36.6); Thrombin Time 13.8 Sec. (15.1-19.6)
--- NOTE | 2018-07-25 18:10 | Cat Scan Report ---
PROCEDURE: CT HEAD/BRAIN WO CON TECHNIQUE: Computerized tomography of the head was performed without contrast material. CT DOSE LENGTH PRODUCT: 920.5 mGycm HISTORY: weak ams COMPARISONS: 05/01/2018 . FINDINGS: There has been prior right frontal and temporal craniotomy. There is stable underlying right frontal and temporal lobe encephalomalacia. There is no CT evidence of intracranial mass, hemorrhage, acute t erritorial infarction, or hydrocephalus. Intracranial arteries are symmetric in density. Paranasal si nuses are aerated. There is a small amount of fluid in the right mastoid. IMPRESSION: There has been right frontal and right temporal craniotomy, with underlying encephalomalacia. No CT e vidence of acute intracranial abnormality . This document is electronically signed by Mya Alicia MD., July 25 2018 06:08:44 PM ET
--- NOTE | 2018-07-25 18:41 | XRay Report ---
PROCEDURE: XR ANKLE BILAT 2V TECHNIQUE: Bilateral ankles, 2 views HISTORY: leg pain cant walk COMPARISONS: None available FINDINGS: No fracture or dislocation. Ankle mortise and talar dome are intact. No radiopaque foreign body. IMPRESSION: No fracture or dislocation. This document is electronically signed by Mya Alicia MD., July 25 2018 06:39:41 PM ET
--- NOTE | 2018-07-25 18:44 | XRay Report ---
PROCEDURE: XR KNEE BILAT 1-2V TECHNIQUE: Bilateral knees, 2 views HISTORY: leg pain cant walk COMPARISONS: None available FINDINGS: There has been prior right knee arthroplasty. Hardware is in the expected position. No fracture of th e [place] bone is seen. No left knee fracture or dislocation is seen. There is left knee tricompartmental osteoarthritis, wit h joint space narrowing and osteophyte formation. Small left knee joint effusion. IMPRESSION: No acute osseous abnormality is seen. This document is electronically signed by Mya Alicia MD., July 25 2018 06:42:20 PM ET
--- NOTE | 2018-07-25 18:45 | XRay Report ---
PROCEDURE: XR CHEST 1V AP TECHNIQUE: Chest radiograph single view. HISTORY: weak ams COMPARISONS: 05/01/2018 . FINDINGS: Heart: Normal. Mediastinum/Vessels: Normal. Lungs/Pleural space: No infiltrate, effusion, or pneumothorax. Bony thorax: No acute osseous abnormality. Life support devices: None. IMPRESSION: No radiographic evidence of acute cardiopulmonary abnormality. This document is electronically signed by Mya Alicia MD., July 25 2018 06:43:16 PM ET
[2018-07-25 19:11] LABS: Bilirubin,Urine NEG (Negative); Blood,Urine NEG (Negative); Color,Urine Yellow (Yellow); Mucus,Urine FEW /HPF; Protein,Urine <15 mg/dL mg/dL (Negative); Urobilinogen,Urine < 2.0 mg/dL (<2.0)
--- NOTE | 2018-07-25 20:04 | XRay Report ---
PROCEDURE: XR PELVIS 1-2V TECHNIQUE: AP view of the pelvis HISTORY: leg pain. Can't Walk COMPARISONS: None . FINDINGS: There is subtle cortical deformity involving the symphysis pubis on both sides of midline. I cannot e xclude fracture in this region. No other evidence for acute fracture or dislocation is seen. Joint spaces are maintained. Sacroiliac joints are normal. Bony mineralization is normal. IMPRESSION: Possible acute fractures involving the symphysis pubis on both sides of midline. This document is electronically signed by Salma Johnson MD., July 25 2018 08:02:01 PM ET
[2018-07-25] MEDS ORDERED: SODIUM CHLORIDE PO STA (21:24)
[2018-07-25] MEDS ORDERED: NACL 0.9% 1000 ML 1,000 ML IV ONE (21:24)
--- NOTE | 2018-07-26 00:29 | Cat Scan Report ---
PROCEDURE: CT PELVIS WO CON Unenhanced CT of the pelvis was performed and data was reformatted in the sagittal and coronal planes . Comparison is made to radiographs of earlier in the day. No acute fracture is seen in the pelvis or hips. There are old healed fractures of the right pubis an d right ischium. No pelvic hematoma is identified. There is a normal appendix. There is no evidence of diverticulitis. There is no adnexal mass. The uri nary bladder is within normal limits. IMPRESSION: No acute fracture is seen in the pelvis or hips This document is electronically signed by Mike Pitts MD., July 25 2018 09:57:45 PM ET
[2018-07-26 00:57] VITALS: BP 123/36
== END 2018-07-26 06:24 | disposition other institution (70) ==
LOC: ED 15:11
DX: R62.50 Unspecified lack of expected normal physiological development in childhood (principal); I10 Essential (primary) hypertension; E11.9 Type 2 diabetes mellitus without complications; F20.9 Schizophrenia, unspecified; F79 Unspecified intellectual disabilities; M79.604 Pain in right leg
CPT/HCPCS: 36415; 70450; 71045; 72170; 72192; 73560; 73600; 80053; 80164; 81001; 82550; 82962; 83735; 84443; 84484; 85025; 85610; 85670; 85730; 93005; 93010; 99285; G0480; J7030; 80320; J7050

== ENCOUNTER 2018-07-27 15:59 | Inpatient (IN) | payer MEDICARE ==
[2018-07-27 20:58] LABS: Basophils # (Auto) 0.1 K/mm3 (0.0-0.1); Basophils % (Auto) 0.4 % (0.0-1.8); Eosinophils # (Auto) 0.1 K/mm3 (0.0-0.4); Eosinophils % (Auto) 0.4 % (0.0-4.3); Hematocrit 36.3 % (30.3-42.9); Hemoglobin 12.5 gm/dl (10.1-14.3); Lymphocytes # (Auto) 2.3 K/mm3 (1.2-5.4); Lymphocytes % (Auto) 14.5 % (13.4-35.0); Mean Corpuscular HGB Conc 35 % (30-34); Mean Corpuscular Volume 91 fl (79-97); Monocytes # (Auto) 1.2 K/mm3 (0.0-0.8); Monocytes % (Auto) 7.6 % (0.0-7.3); Platelet Count 173 K/mm3 (140-440); Red Blood Count 3.98 M/mm3 (3.65-5.03); Red Cell Distribution Width 13.6 % (13.2-15.2)
[2018-07-27 21:07] LABS: BUN/Creatinine Ratio 18; Blood Urea Nitrogen 7 mg/dL (7-17); Calcium 9.5 mg/dL (8.4-10.2); Hemolysis Index 13
--- NOTE | 2018-07-27 22:43 | XRay Report ---
PROCEDURE: XR CHEST 1V AP TECHNIQUE: Chest radiograph single view. HISTORY: weakness COMPARISONS: CXR 07/25/2018 . FINDINGS: Heart: Mildly enlarged but stable. Mediastinum/Vessels: Normal. Lungs/Pleural space: Normal. Bony thorax: Severe osteoarthritis with erosion of the humeral head in the left shoulder is noted. Life support devices: None. IMPRESSION: No acute cardiopulmonary abnormality. Stable cardiomegaly This document is electronically signed by Salma Johnson MD., July 27 2018 10:41:29 PM ET
[2018-07-27 22:51] LABS: Bilirubin,Urine NEG (Negative); Blood,Urine NEG (Negative); Color,Urine Straw (Yellow); Mucus,Urine FEW /HPF; Protein,Urine <15 mg/dL mg/dL (Negative); Urobilinogen,Urine < 2.0 mg/dL (<2.0)
[2018-07-28] MEDS ORDERED: NACL 0.9% 1000 ML 1,000 ML IV ONE (00:44)
--- NOTE | 2018-07-28 00:45 | Emergency Department Report ---
- General Chief complaint: Weakness Stated complaint: ALTERED MENTAL STATUS Time Seen by Provider: 07/27/18 18:02 Source: EMS, old records reviewed Mode of arrival: Stretcher Limitations: Altered Mental Status - History of Present Illness Initial comments: 63-year-old female with history of MR, seizures, schizophrenia, hypothyroidism, traumatic brain injury presents to the ED with generalized weakness. Patient is a poor historian, information obtained over the phone from the caregiver, Jenny. She states that patient has been generally weak over the last 2 days. States she is normally able to stand up and walk around, however she has not been able to do this since 2 days ago. At baseline patient normally has slurred speech and is difficult to understand. Caregiver also reports that patient has had generalized tremors as well. Caregiver states that when this happens it is usually due to her sodium being low or her having a UTI. The patient was seen at [facility] last month for similar generalized weakness. States her sodium was around 131 at that time. Upon discharge her sodium had improved to 138 and patient was back to her baseline status. Patient was sent to the ER 2 days ago for same generalized weakness, had sodium of 132. Caregiver states patient was discharged from the ER after receiving IV fluids, however states patient was still not at her baseline. Denies any seizure activity, only reports generalized tremor when her sodium drops. Complaint: generalized weakness -: days(s) (2) Location: generalized Severity: moderate Severity scale (0 -10): 0 Consistency: constant Improves with: none Worsens with: none Context: history of similar Associated Symptoms: denies: fever/chills, nausea/vomiting, shortness of breath - Related Data Home Medications Medication Instructions Recorded Confirmed Last Taken Atorvastatin (Nf) [Lipitor (Nf)] 20 mg PO QDAY 12/08/17 05/02/18 04/30/18 20:00 Azelastine 0.1% (Nf) [Astelin (Nf)] 2 spray INHALATION BID 12/08/17 05/02/18 05/01/18 08:[address] [Depakote Dr] 500 mg PO BID 12/08/17 05/02/18 05/01/18 08:00 Docusate Sodium [Stool Softener] 100 mg PO BID 12/08/17 05/02/18 05/01/18 08:00 Ferrous Sulfate 325 mg PO BID 12/08/17 05/02/18 05/01/18 08:00 Fluticasone [Flonase] 2 spray NS QDAY 12/08/17 05/02/18 05/01/18 08:00 Haloperidol 10 mg PO BID 12/08/17 05/02/18 05/01/18 08:00 Levothyroxine [Synthroid] 50 mcg PO QAM 12/08/17 05/02/18 05/01/18 08:00 Loratadine [Claritin] 10 mg PO DAILY 12/08/17 05/02/18 05/01/18 08:00 Ondansetron [Zofran TAB] 4 mg PO Q8HR PRN 12/08/17 05/02/18 Unknown Paliperidone [Paliperidone ER] 1.5 mg PO DAILY 12/08/17 05/02/18 05/01/18 08:00 Potassium Chloride [Klor-Con 10 meq PO DAILY 12/08/17 05/02/18 05/01/18 08:00 Sprinkle] Sertraline [Zoloft] 100 mg PO QDAY 12/08/17 05/02/18 05/01/18 08:00 amLODIPine [Norvasc] 10 mg PO DAILY 12/08/17 05/02/18 05/01/18 08:00 levETIRAcetam [Keppra TAB] 1,000 mg PO BID 12/08/17 05/02/18 05/01/18 08:00 Aspirin [Aspirin BABY CHEW TAB] 81 mg PO QDAY 05/02/18 05/02/18 05/01/18 08:00 Clotrimazole/Betamethasone Dip 1 applicatio TP BID PRN 05/02/18 05/02/18 Unknown [Lotrisone Cream] Linaclotide (Nf) [Linzess (Nf)] 290 mcg PO QDAY PRN 05/02/18 05/02/18 Unknown Meloxicam 15 mg PO DAILY 05/02/18 05/02/18 05/01/18 08:00 Metoprolol [Lopressor TAB] 50 mg PO BID 05/02/18 05/02/18 05/01/18 08:00 Nystatin Cream [Mycostatin Cream] 1 applicatio TP BID 05/02/18 05/02/1805/01/19 08:00 Phenytoin Sodium Extended 200 mg PO QPM 05/02/18 05/02/18 04/30/18 20:00 Quetiapine Fumarate [SEROquel] 400 mg PO QPM 05/02/18 05/02/18 04/30/18 20:00 Quetiapine Fumarate [Seroquel] 100 mg PO QAM 05/02/18 05/02/18 05/01/18 08:00 Previous Rx's Medication Instructions Recorded Last Taken Type Phenytoin [Dilantin] 200 mg PO QAM #30 capsule.er 05/03/18 Unknown Rx Allergies Allergy/AdvReac Type Severity Reaction Status Date / Time erythromycin base Allergy Rash Verified 12/08/17 13:56 [From E-Mycin] nitrofurantoin Allergy MUSCLE Verified 12/08/17 13:57 [From Macrobid] WEAKNESS,DECREASED MOBILITY vancomycin Allergy Rash Verified 12/08/17 13:56 amoxicillin AdvReac Vomiting Verified 05/01/18 19:09 ED Review of Systems ROS: Stated complaint: ALTERED MENTAL STATUS Other details as noted in HPI Comment: Unobtainable due to pts medical conditions Neurological: weakness (generalized) ED Past Medical Hx - Past Medical History Previous Medical History?: Yes Hx Hypertension: Yes Hx Congestive Heart Failure: No Hx Diabetes: Yes Hx Seizures: Yes Hx Asthma: No Hx COPD: No Hx HIV: No Additional medical history: Scizophrenia, mild mental retardation - Social History Smoking Status: Unknown if ever smoked - Medications Home Medications: Home Medications Medication Instructions Recorded Confirmed Last Taken Type Atorvastatin (Nf) [Lipitor (Nf)] 20 mg PO QDAY 12/08/17 05/02/18 04/30/18 20:00 History Azelastine 0.1% (Nf) [Astelin (Nf)] 2 spray INHALATION BID 12/08/17 05/02/18 05/01/18 08:[address] [Depakote Dr] 500 mg PO BID 12/08/17 05/02/18 05/01/18 08:00 History Docusate Sodium [Stool Softener] 100 mg PO BID 12/08/17 05/02/18 05/01/18 08:00 History Ferrous Sulfate 325 mg PO BID 12/08/17 05/02/18 05/01/18 08:00 History Fluticasone [Flonase] 2 spray NS QDAY 12/08/17 05/02/18 05/01/18 08:00 History Haloperidol 10 mg PO BID 12/08/17 05/02/18 05/01/18 08:00 History Levothyroxine [Synthroid] 50 mcg PO QAM 12/08/17 05/02/18 05/01/18 08:00 History Loratadine [Claritin] 10 mg PO DAILY 12/08/17 05/02/18 05/01/18 08:00 History Ondansetron [Zofran TAB] 4 mg PO Q8HR PRN 12/08/17 05/02/18 Unknown History Paliperidone [Paliperidone ER] 1.5 mg PO DAILY 12/08/17 05/02/18 05/01/18 08:00 History Potassium Chloride [Klor-Con 10 meq PO DAILY 12/08/17 05/02/18 05/01/18 08:00 History Sprinkle] Sertraline [Zoloft] 100 mg PO QDAY 12/08/17 05/02/18 05/01/18 08:00 History amLODIPine [Norvasc] 10 mg PO DAILY 12/08/17 05/02/18 05/01/18 08:00 History levETIRAcetam [Keppra TAB] 1,000 mg PO BID 12/08/17 05/02/18 05/01/18 08:00 History Aspirin [Aspirin BABY CHEW TAB] 81 mg PO QDAY 05/02/18 05/02/18 05/01/18 08:00 History Clotrimazole/Betamethasone Dip 1 applicatio TP BID PRN 05/02/18 05/02/18 Unknown History [Lotrisone Cream] Linaclotide (Nf) [Linzess (Nf)] 290 mcg PO QDAY PRN 05/02/18 05/02/18 Unknown History Meloxicam 15 mg PO DAILY 05/02/18 05/02/18 05/01/18 08:00 History Metoprolol [Lopressor TAB] 50 mg PO BID 05/02/18 05/02/18 05/01/18 08:00 History Nystatin Cream [Mycostatin Cream] 1 applicatio TP BID 05/02/18 05/02/1819 08:00 History Phenytoin Sodium Extended 200 mg PO QPM 05/02/18 05/02/18 04/30/18 20:00 History Quetiapine Fumarate [SEROquel] 400 mg PO QPM 05/02/18 05/02/18 04/30/18 20:00 History Quetiapine Fumarate [Seroquel] 100 mg PO QAM 05/02/18 05/02/18 05/01/18 08:00 History Phenytoin [Dilantin] 200 mg PO QAM #30 capsule.er 05/03/18 Unknown Rx ED Physical Exam - General Limitations: Altered Mental Status General appearance: alert - Eye Eye exam: Present: normal appearance - ENT ENT exam: Present: mucous membranes moist - Neck Neck exam: Present: normal inspection - Respiratory Respiratory exam: Present: normal lung sounds bilaterally. Absent: respiratory distress - Cardiovascular Cardiovascular Exam: Present: regular rate, normal rhythm - GI/Abdominal GI/Abdominal exam: Present: soft. Absent: distended, tenderness - Extremities Exam Extremities exam: Present: normal inspection - Neurological Exam Neurological exam: Present: alert, other (speech is slurred, pt somewhat able to answer questions, pt follows commands; generalized tremor present) - Skin Skin exam: Present: warm, dry, intact, normal color ED Course Vital Signs 07/27/18 07/27/18 07/27/18 18:19 19:20 21:45 Temperature 98.2 F 99.1 F 99 F Pulse Rate 87 98 H 88 Respiratory 18 19 22 Rate Blood Pressure 154/94 201/95 178/86 [Right] O2 Sat by Pulse 98 98 95 Oximetry ED Medical Decision Making - Lab Data Result diagrams: 07/27/18 20:30 07/27/18 20:30 - Radiology Data Radiology results: report reviewed, image reviewed - Medical Decision Making 63-year-old female sent to ED for generalized weakness. This is pt's 2nd visit in the last 2 days for same. Patient has mild hyponatremia with sodium of 131, which caregiver states is significant for the patient. States in the past having a sodium at this level results in current presentation. Patient has elevated WBCs at 16, however she is afebrile. UA and chest x-ray are both negative for infection. IV fluid bolus given here in ED. Will admit to hospitalist, Dr Calderón, for further management. - Differential Diagnosis uti, hyponatremia, pneumonia Critical care attestation.: If time is entered above; I have spent that time in minutes in the direct care of this critically ill patient, excluding procedure time. ED Disposition Clinical Impression: Generalized weakness, Hyponatremia Disposition: OP ADMIT IP TO THIS HOSP Is pt being admited?: Yes Condition: Stable Referrals: EDELMIRA JOHNSON MD [Primary Care Provider] - 3-5 Days Time of Disposition: 00:45
[2018-07-28] MEDS ORDERED: SODIUM CHLORIDE FLUSH SYRINGE 10 ML IV PRN (01:24)
[2018-07-28] MEDS ORDERED: TYLENOL PO PRN (01:24)
[2018-07-28] MEDS ORDERED: ZOFRAN IV PRN (01:24)
[2018-07-28] MEDS ORDERED: D50W (25GM) Syringe IV PRN (02:29)
--- NOTE | 2018-07-28 02:33 | History and Physical Report ---
<STEFFANY BAH - Last Filed: 07/28/18 02:54> History of Present Illness Date of examination: 07/28/18 Date of admission: 07/28/2018 Chief complaint: Altered Mental status History of present illness: 63-year-old female with history of mild developmentally delayed, seizure, hypertension, diabetes, schizophrenia presents [facility] ED with complaints of altered mental status and generalized weakness. Of note patient was seen in ED on 07/25/18 for complaints of generalized weakness and hyponatremia. She received IVF and was discharged. Also, patient was recently admitted to [facility] and treated for similar complaints as well. Pt is non-verbal and history is provided by caregiver and review of medical records. At baseline pt is able to ambulate without difficulty, and has slurred speech . For the past 2 days she has gotten weak and is unable to ambulate. According to caregiver pt experiences generalized tremors when her sodium is low or if she has a UTI. It is not clear whether or not pt has experienced any tremors in the past 2 days. Past History Past Medical History: diabetes, hypertension, hypothyroidism, seizures, other (Georgette, mild mental retardation) Past Surgical History: No surgical history Social history: other (has a caregiver) Family history: no significant family history Medications and Allergies Allergies Allergy/AdvReac Type Severity Reaction Status Date / Time erythromycin base Allergy Rash Verified 12/08/17 13:56 [From E-Mycin] nitrofurantoin Allergy MUSCLE Verified 12/08/17 13:57 [From Macrobid] WEAKNESS,DECREASED MOBILITY vancomycin Allergy Rash Verified 12/08/17 13:56 amoxicillin AdvReac Vomiting Verified 05/01/18 19:09 Home Medications Medication Instructions Recorded Confirmed Last Taken Type Atorvastatin (Nf) [Lipitor (Nf)] 20 mg PO QHS 12/08/17 07/28/18 07/26/18 20:00 History Azelastine 0.1% (Nf) [Astelin (Nf)] 2 spray INHALATION BID 12/08/17 07/28/18 07/27/18 08:[address] [Depakote Dr] 500 mg PO BID 12/08/17 07/28/18 07/27/18 08:00 History Docusate Sodium [Stool Softener] 100 mg PO BID 12/08/17 07/28/18 07/27/18 08:00 History Ferrous Sulfate 325 mg PO BID 12/08/17 07/28/18 07/27/18 08:00 History Fluticasone [Flonase] 2 spray NS QDAY 12/08/17 07/28/18 07/27/18 08:00 History Haloperidol 10 mg PO BID 12/08/17 07/28/18 07/27/18 08:00 History Levothyroxine [Synthroid] 50 mcg PO QAM 12/08/17 07/28/18 07/27/18 08:00 History Loratadine [Claritin] 10 mg PO DAILY 12/08/17 07/28/18 07/27/18 08:00 History Ondansetron [Zofran TAB] 4 mg PO Q8HR PRN 12/08/17 07/28/18 Unknown History Paliperidone [Paliperidone ER] 1.5 mg PO DAILY 12/08/17 07/28/18 07/24/18 08:00 History Potassium Chloride [Klor-Con 10 meq PO DAILY 12/08/17 07/28/18 07/27/18 08:00 History Sprinkle] Sertraline [Zoloft] 100 mg PO QDAY 12/08/17 07/28/18 07/27/18 08:00 History amLODIPine [Norvasc] 10 mg PO DAILY 12/08/17 07/28/18 07/27/18 08:00 History levETIRAcetam [Keppra TAB] 1,000 mg PO BID 12/08/17 07/28/18 07/27/18 08:00 History Aspirin [Aspirin BABY CHEW TAB] 81 mg PO QDAY 05/02/18 07/28/18 05/01/18 08:00 History Clotrimazole/Betamethasone Dip 1 applicatio TP BID PRN 05/02/18 07/28/18 Unknown History [Lotrisone Cream] Linaclotide (Nf) [Linzess (Nf)] 290 mcg PO QDAY PRN 05/02/18 07/28/18 Unknown History Meloxicam 15 mg PO DAILY 05/02/18 07/28/18 07/27/18 08:00 History Metoprolol [Lopressor TAB] 50 mg PO BID 05/02/18 07/28/18 07/27/18 08:00 History Nystatin Cream [Mycostatin Cream] 1 applicatio TP BID 05/02/18 07/28/18 07/27/18 08:00 History Phenytoin Sodium Extended 200 mg PO QPM 05/02/18 07/28/18 04/30/18 20:00 History Quetiapine Fumarate [SEROquel] 50 mg PO QAM 05/02/18 07/28/18 07/27/18 08:00 History Quetiapine Fumarate [Seroquel] 100 mg PO QAM 05/02/18 07/28/18 05/01/18 08:00 History Phenytoin [Dilantin] 200 mg PO QAM #30 capsule.er 05/03/18 07/28/18 Unknown Rx Sodium Chloride 1 gm PO TID 07/28/18 07/28/18 07/27/18 08:00 History Active Meds: Active Medications Acetaminophen (Tylenol) 650 mg PO Q4H PRN PRN Reason: Pain MILD(1-3)/Fever >100.5/GANNON Amlodipine Besylate (Norvasc) 10 mg PO DAILY [facility] Aspirin (Baby Aspirin) 81 mg PO QDAY [facility] Atorvastatin Calcium (Lipitor) 20 mg PO QDAY [facility] Docusate Sodium (Colace) 100 mg PO BID [facility] Ferrous Sulfate (Feosol) 325 mg PO BID [facility] Heparin Sodium (Porcine) (Heparin) 5,000 unit SUB-Q Q12HR [facility] Hydralazine HCl (Apresoline) 10 mg IV Q4HR PRN PRN Reason: Blood Pressure Sodium Chloride (Nacl 0.9% 1000 Ml) 1,000 mls @ 100 mls/hr IV DIRECT [facility] Levofloxacin/Dextrose (Levaquin 500mg/100ml) 500 mg in 100 mls @ 100 mls/hr IV Q24HR JAN; Protocol Levetiracetam (Keppra) 1,000 mg PO BID [facility] Levothyroxine Sodium (Synthroid) 50 mcg PO QAM@0600 [facility] Metoprolol Tartrate (Lopressor) 50 mg PO BID [facility] Ondansetron HCl (Zofran) 4 mg IV Q8H PRN PRN Reason: Nausea And Vomiting Sodium Chloride (Sodium Chloride Flush Syringe 10 Ml) 10 ml IV BID [facility] Sodium Chloride (Sodium Chloride Flush Syringe 10 Ml) 10 ml IV PRN PRN PRN Reason: LINE FLUSH Review of Systems ROS unobtainable: due to mental status Exam - Physical Exam Narrative exam: Physical exam General appearance: Present: No acute distress, alert, disoriented to person place situation - EENT Eyes: Present: PERRL, EOM intact ENT: hearing intact, normal dentition - Neck Neck: Present: supple, normal ROM - Respiratory Respiratory effort: Non-labored Respiratory: bilateral: diminished (bases) - Cardiovascular Heart rate: 95 (bpm) Rhythm: Sinus rhythm Heart Sounds: Present: S1 & S2. Absent: rub, click - Extremities Extremities: no ischemia, pulses intact, - Peripheral Assessment Peripheral Pulses: within normal limits - Abdominal General gastrointestinal: soft, non-tender, normal bowel sounds - Integumentary Integumentary: Present: warm, dry - Musculoskeletal Musculoskeletal: generalized weakness - Psychiatric Psychiatric: Unable to assess - Constitutional Vitals: Temp Pulse Resp BP Pulse Ox 99 F 88 22 178/86 95 07/27/18 21:45 07/27/18 21:45 07/27/18 21:45 07/27/18 21:45 07/27/18 21:45 Results - Labs CBC & Chem 7: 07/27/18 20:30 07/27/18 20:30 Labs: Laboratory Last Values WBC 16.1 K/mm3 (4.5-11.0) H 07/27/18 20:30 RBC 3.98 M/mm3 (3.65-5.03) 07/27/18 20:30 Hgb 12.5 gm/dl (10.1-14.3) 07/27/18 20:30 Hct 36.3 % (30.3-42.9) 07/27/18 20:30 MCV 91 fl (79-97) 07/27/18 20:30 MCH 31 pg (28-32) 07/27/18 20:30 MCHC 35 % (30-34) H 07/27/18 20:30 RDW 13.6 % (13.2-15.2) 07/27/18 20:30 Plt Count 173 K/mm3 (140-440) 07/27/18 20:30 Lymph % (Auto) 14.5 % (13.4-35.0) 07/27/18 20:30 [place] % (Auto) 7.6 % (0.0-7.3) H 07/27/18 20:30 Eos % (Auto) 0.4 % (0.0-4.3) 07/27/18 20:30 Baso % (Auto) 0.4 % (0.0-1.8) 07/27/18 20:30 Lymph # 2.3 K/mm3 (1.2-5.4) 07/27/18 20:30 [place] # 1.2 K/mm3 (0.0-0.8) H 07/27/18 20:30 Eos # 0.1 K/mm3 (0.0-0.4) 07/27/18 20:30 Baso # 0.1 K/mm3 (0.0-0.1) 07/27/18 20:30 Seg Neutrophils % 77.1 % (40.0-70.0) H 07/27/18 20:30 Seg Neutrophils # 12.4 K/mm3 (1.8-7.7) H 07/27/18 20:30 Sodium 131 mmol/L (137-145) L 07/27/18 20:30 Potassium 4.8 mmol/L (3.6-5.0) 07/27/18 20:30 Chloride 95.0 mmol/L (98-107) L 07/27/18 20:30 Carbon Dioxide 21 mmol/L (22-30) L 07/27/18 20:30 20 mmol/L 07/27/18 20:30 BUN 7 mg/dL (7-17) 07/27/18 20:30 0.4 mg/dL (0.7-1.2) L 07/27/18 20:30 Estimated GFR > 60 ml/min 07/27/18 20:30 18 % 07/27/18 20:30 Glucose 126 mg/dL (65-100) H 07/27/18 20:30 Calcium 9.5 mg/dL (8.4-10.2) 07/27/18 20:30 Straw (Yellow) 07/27/18 22:01 Clear (Clear) 07/27/18 22:01 7.0 (5.0-7.0) 07/27/18 22:01 Ur Specific [place] 1.013 (1.003-1.030) 07/27/18 22:01 <15 mg/dl mg/dL (Negative) 07/27/18 22:01 Neg mg/dL (Negative) 07/27/18 22:01 20 mg/dL (Negative) 07/27/18 22:01 Neg (Negative) 07/27/18 22:01 Neg (Negative) 07/27/18 22:01 Neg (Negative) 07/27/18 22:01 < 2.0 mg/dL (<2.0) 07/27/18 22:01 Ur Leukocyte Esterase Neg (Negative) 07/27/18 22:01 2.0 /HPF (0.0-6.0) 07/27/18 22:01 7.0 /HPF (0.0-6.0) 07/27/18 22:01 U Epithel Cells (Auto) < 1.0 /HPF (0-13.0) 07/27/18 22:01 Few /HPF 07/27/18 22:01 Short CBC 07/27/18 Range/Units 20:30 WBC 16.1 H (4.5-11.0) K/mm3 Hgb 12.5 (10.1-14.3) gm/dl Hct 36.3 (30.3-42.9) % Plt Count 173 (140-440) K/mm3 BMP 07/27/18 20:30 Sodium 131 L Potassium 4.8 Chloride 95.0 L Carbon Dioxide 21 L BUN 7 Creatinine 0.4 L Glucose 126 H Calcium 9.5 Urine 07/27/18 Range/Units 22:01 Urine Color Straw (Yellow) Urine pH 7.0 (5.0-7.0) Ur Specific [place] 1.013 (1.003-1.030) Urine Protein <15 mg/dl (Negative) mg/dL Urine Glucose (UA) Neg (Negative) mg/dL - Imaging and Cardiology Chest x-ray: report reviewed (no acute cardiopulmonary abnormalities), image reviewed Assessment and Plan Assessment and plan: 63-year-old female with history of mild developmentally delayed, seizure, hypertension, diabetes, schizophrenia presents [facility] ED with complaints of altered mental status and generalized weakness. Of note patient was seen in ED on 07/25/18 for complaints of generalized weakness and hyponatremia. The patient was recently admitted to [facility] and treated for similar complaints as well. At the time of my examination pt mumbled a few incomprehensible words. She was noted to be markedly confused. She is found to be hyponatremic with sodium of 131, leukocytosis with WBC of 16.1 and has low-grade temp of 99.1. CXR unremarkable for acute pulmonary abnormalities. UA negative. Will admit to medical floor for further evaluation. Hypertensive urgency HTN Acute metabolic encephalopathy Hyponatremia Leukocytosis Fever of unknown origin HLD Diabetes History of schizophrenia Mild developmentally delayed Plan: Continue support care Remote telemetry monitoring Neurochecks Monitor CBC and BMP Slowly normalized Sodium Start NS @ 100ml.hr Lactic Acid pending Blood Culture pending Start empiric Levaquin 500mg daily Monitor BP Norvasc 10 mg daily, metoprolol 50 mg twice a day IV hydralazine when necessary ASA 81mg, Lipitor 20 mg daily at bedtime POC BG monitoring SSI coverage HgbA1c Pending DVT PPX on Heparin and SCD's This patient was seen in conjunction with Dr. Calderón. Advance Directives: No VTE prophylaxis?: Chemical Plan of care discussed with patient/family: Yes <CHADWICK CALDERÓN E - Last Filed: 07/30/18 22:13> History of Present Illness Date of admission: 07/28/18 01:24 Medications and Allergies Active Meds: Active Medications Acetaminophen (Tylenol) 650 mg PO Q4H PRN PRN Reason: Pain MILD(1-3)/Fever >100.5/GANNON Amlodipine Besylate (Norvasc) 10 mg PO DAILY [facility] Aspirin (Baby Aspirin) 81 mg PO QDAY [facility]AN Atorvastatin Calcium (Lipitor) 20 mg PO QDAY [facility] Dextrose (D50w (25gm) Syringe) 50 ml IV PRN PRN PRN Reason: Hypoglycemia Docusate Sodium (Colace) 100 mg PO BID [facility]AN Ferrous Sulfate (Feosol) 325 mg PO BID [facility] Heparin Sodium (Porcine) (Heparin) 5,000 unit SUB-Q Q12HR [facility] Hydralazine HCl (Apresoline) 10 mg IV Q4HR PRN PRN Reason: Blood Pressure Last Admin: 07/28/18 04:30 Dose: 10 mg Documented by: Sodium Chloride (Nacl 0.9% 1000 Ml) 1,000 mls @ 100 mls/hr IV DIRECT JAN Last Admin: 07/28/18 02:59 Dose: 100 mls/hr Documented by: Levofloxacin/Dextrose (Levaquin 500mg/100ml) 500 mg in 100 mls @ 100 mls/hr IV Q24H JAN; Protocol Last Admin: 07/28/18 03:20 Dose: 100 mls/hr Documented by: Insulin Human Lispro (Humalog) 0 unit SUB-Q ACHS JAN; Protocol Levetiracetam (Keppra) 1,000 mg PO BID [facility] Levothyroxine Sodium (Synthroid) 50 mcg PO QAM@0600 JAN Metoprolol Tartrate (Lopressor) 50 mg PO BID [facility] Ondansetron HCl (Zofran) 4 mg IV Q8H PRN PRN Reason: Nausea And Vomiting Sodium Chloride (Sodium Chloride Flush Syringe 10 Ml) 10 ml IV BID JAN Sodium Chloride (Sodium Chloride Flush Syringe 10 Ml) 10 ml IV PRN PRN PRN Reason: LINE FLUSH Exam - Constitutional Vitals: Temp Pulse Resp BP Pulse Ox 98 F 97 H 21 165/75 100 07/28/18 03:00 07/28/18 04:30 07/28/18 03:00 07/28/18 04:30 07/28/18 03:00 Results - Labs CBC & Chem 7: 07/30/18 03:52 07/30/18 03:52 Labs: Laboratory Last Values WBC 16.1 K/mm3 (4.5-11.0) H 07/27/18 20:30 RBC 3.98 M/mm3 (3.65-5.03) 07/27/18 20:30 Hgb 12.5 gm/dl (10.1-14.3) 07/27/18 20:30 Hct 36.3 % (30.3-42.9) 07/27/18 20:30 MCV 91 fl (79-97) 07/27/18 20:30 MCH 31 pg (28-32) 07/27/18 20:30 MCHC 35 % (30-34) H 07/27/18 20:30 RDW 13.6 % (13.2-15.2) 07/27/18 20:30 Plt Count 173 K/mm3 (140-440) 07/27/18 20:30 Lymph % (Auto) 14.5 % (13.4-35.0) 07/27/18 20:30 [place] % (Auto) 7.6 % (0.0-7.3) H 07/27/18 20:30 Eos % (Auto) 0.4 % (0.0-4.3) 07/27/18 20:30 Baso % (Auto) 0.4 % (0.0-1.8) 07/27/18 20:30 Lymph # 2.3 K/mm3 (1.2-5.4) 07/27/18 20:30 [place] # 1.2 K/mm3 (0.0-0.8) H 07/27/18 20:30 Eos # 0.1 K/mm3 (0.0-0.4) 07/27/18 20:30 Baso # 0.1 K/mm3 (0.0-0.1) 07/27/18 20:30 Seg Neutrophils % 77.1 % (40.0-70.0) H 07/27/18 20:30 Seg Neutrophils # 12.4 K/mm3 (1.8-7.7) H 07/27/18 20:30 Sodium 131 mmol/L (137-145) L 07/27/18 20:30 Potassium 4.8 mmol/L (3.6-5.0) 07/27/18 20:30 Chloride 95.0 mmol/L (98-107) L 07/27/18 20:30 Carbon Dioxide 21 mmol/L (22-30) L 07/27/18 20:30 20 mmol/L 07/27/18 20:30 BUN 7 mg/dL (7-17) 07/27/18 20:30 0.4 mg/dL (0.7-1.2) L 07/27/18 20:30 Estimated GFR > 60 ml/min 07/27/18 20:30 18 % 07/27/18 20:30 Glucose 126 mg/dL (65-100) H 07/27/18 20:30 4.9 % (4-6) 07/28/18 03:18 Lactic Acid 2.00 mmol/L (0.7-2.0) 07/28/18 01:49 Calcium 9.5 mg/dL (8.4-10.2) 07/27/18 20:30 Straw (Yellow) 07/27/18 22:01 Clear (Clear) 07/27/18 22:01 7.0 (5.0-7.0) 07/27/18 22:01 Ur Specific [place] 1.013 (1.003-1.030) 07/27/18 22:01 <15 mg/dl mg/dL (Negative) 07/27/18 22:01 Neg mg/dL (Negative) 07/27/18 22:01 20 mg/dL (Negative) 07/27/18 22:01 Neg (Negative) 07/27/18 22:01 Neg (Negative) 07/27/18 22:01 Neg (Negative) 07/27/18 22:01 < 2.0 mg/dL (<2.0) 07/27/18 22:01 Ur Leukocyte Esterase Neg (Negative) 07/27/18 22:01 2.0 /HPF (0.0-6.0) 07/27/18 22:01 7.0 /HPF (0.0-6.0) 07/27/18 22:01 U Epithel Cells (Auto) < 1.0 /HPF (0-13.0) 07/27/18 22:01 Few /HPF 07/27/18 22:01 Assessment and Plan Assessment and plan: Patient seen and examined, discussed with past practitioner. 63 year old woman with seizure, Paranoid Schizophrenia, Hypothyroidism, hypertension, diabetes, Chronic Nonoperative SDH, MR is being evaluated for generalized weakness. History is per the emergency room physician, unable to reach caregiver. The patient is unable to give a history. Caregiver was concerned that the patient's sodium was low, generally gets weak when her sodium is low. She was admitted at [facility] for hyponatremia, admission sodium was 131 and discharge was 138, patient felt better upon discharge. Patient with SIRS, hyponatremia and generalized weakness, failure to thrive. Agree with IV fluids, antibiotics, continue to monitor
[2018-07-28] MEDS: NACL 0.9% 1000 ML 1,000 ML IV SCH ×2 (02:59→20:07)
[2018-07-28] MEDS: LEVAQUIN 500MG/100ML 500 MG/100 ML BAG IV SCH (03:20)
[2018-07-28] MEDS: APRESOLINE IV PRN (04:30)
[2018-07-28] MEDS ORDERED: APRESOLINE ONE (04:32)
[2018-07-28] MEDS: SYNTHROID PO SCH (05:40)
[2018-07-28] MEDS: HumaLOG SUB-Q SCH ×4 (08:00→23:15)
[2018-07-28] MEDS ORDERED: NON-FORMULARY (Linaclotide (Nf) 290 MCG) PO PRN (09:11)
--- NOTE | 2018-07-28 09:16 | Progress Note ---
Assessment and Plan Assessment and plan: --Hypertensive urgency; present on admission Mild improvement ,continue current antihypertensives and when necessary medications --Acute metabolic encephalopathy; probably due to underlying psych disease process Supportive care, psych consult, adjust medications as needed, electrolyte abnormality --Hyponatremia; closely monitor electrolytes, replacement therapy if needed Patient takes sodium chloride tablets at home, 2 more days of treatment *Sodium chloride 1 g twice a day for 2 more days, monitor sodium levels --History of schizophrenia; on medications, medications adjusted As per the information given by the caregiver, psych evaluation --Leukocytosis/fever fever/SIRS Empiric antibiotics, follow cultures, possible UTI --h/o hypothyroidism; continue Synthroid --DVT prophylaxis; Lovenox --DC planning per case management Monitor closely and adjust management as needed Plan of care reviewed with the patient's nurse and the caregiver Follow psych evaluation and recommendations Note:Per pt's occasional caregiver, pt. takes Quetipine 50 mg po daily, pt. is on sodium chloride 1 gm po TID for 5 days only, started on 07/24/18 at 8pm, last taken 0n 07/27/18 at 8am. And pt. no longer take the following meds: Dillantin, Asiprin, and Paliperidone. Medications adjusted History Interval history: Patient seen and examined medical records reviewed Patient was admitted with altered level of consciousness Patient is still lethargic unable to answer questions Vital signs reviewed Hospitalist Physical - Constitutional Vitals: Temp Pulse Resp BP Pulse Ox 98.5 F 75 20 158/76 95 07/28/18 07:36 07/28/18 07:36 07/28/18 07:36 07/28/18 07:36 07/28/18 07:36 General appearance: Present: no acute distress (lethargic and noncommunicative), well-nourished, other ( Lethargic) - EENT Eyes: Present: PERRL, EOM intact - Neck Neck: Present: supple, normal ROM - Respiratory Respiratory effort: normal Respiratory: bilateral: diminished, negative: rales, rhonchi, wheezing - Cardiovascular Rhythm: regular Heart Sounds: Present: S1 & S2 - Extremities Extremities: no ischemia, No edema - Abdominal General gastrointestinal: soft, non-tender, non-distended, normal bowel sounds - Integumentary Integumentary: Present: clear, warm - Psychiatric Psychiatric: other (confused, noncommunicative) - Neurologic Neurologic: other (lethergy) Results - Labs CBC & Chem 7: 07/27/18 20:30 07/27/18 20:30 Labs: Laboratory Last Values WBC 16.1 K/mm3 (4.5-11.0) H 07/27/18 20:30 RBC 3.98 M/mm3 (3.65-5.03) 07/27/18 20:30 Hgb 12.5 gm/dl (10.1-14.3) 07/27/18 20:30 Hct 36.3 % (30.3-42.9) 07/27/18 20:30 MCV 91 fl (79-97) 07/27/18 20:30 MCH 31 pg (28-32) 07/27/18 20:30 MCHC 35 % (30-34) H 07/27/18 20:30 RDW 13.6 % (13.2-15.2) 07/27/18 20:30 Plt Count 173 K/mm3 (140-440) 07/27/18 20:30 Lymph % (Auto) 14.5 % (13.4-35.0) 07/27/18 20:30 [place] % (Auto) 7.6 % (0.0-7.3) H 07/27/18 20:30 Eos % (Auto) 0.4 % (0.0-4.3) 07/27/18 20:30 Baso % (Auto) 0.4 % (0.0-1.8) 07/27/18 20:30 Lymph # 2.3 K/mm3 (1.2-5.4) 07/27/18 20:30 [place] # 1.2 K/mm3 (0.0-0.8) H 07/27/18 20:30 Eos # 0.1 K/mm3 (0.0-0.4) 07/27/18 20:30 Baso # 0.1 K/mm3 (0.0-0.1) 07/27/18 20:30 Seg Neutrophils % 77.1 % (40.0-70.0) H 07/27/18 20:30 Seg Neutrophils # 12.4 K/mm3 (1.8-7.7) H 07/27/18 20:30 Sodium 131 mmol/L (137-145) L 07/27/18 20:30 Potassium 4.8 mmol/L (3.6-5.0) 07/27/18 20:30 Chloride 95.0 mmol/L (98-107) L 07/27/18 20:30 Carbon Dioxide 21 mmol/L (22-30) L 07/27/18 20:30 20 mmol/L 07/27/18 20:30 BUN 7 mg/dL (7-17) 07/27/18 20:30 0.4 mg/dL (0.7-1.2) L 07/27/18 20:30 Estimated GFR > 60 ml/min 07/27/18 20:30 18 % 07/27/18 20:30 Glucose 126 mg/dL (65-100) H 07/27/18 20:30 POC Glucose 104 (70-105) 07/28/18 07:44 4.9 % (4-6) 07/28/18 03:18 Lactic Acid 1.90 mmol/L (0.7-2.0) 07/28/18 03:18 Calcium 9.5 mg/dL (8.4-10.2) 07/27/18 20:30 Straw (Yellow) 07/27/18 22:01 Clear (Clear) 07/27/18 22:01 7.0 (5.0-7.0) 07/27/18 22:01 Ur Specific [place] 1.013 (1.003-1.030) 07/27/18 22:01 <15 mg/dl mg/dL (Negative) 07/27/18 22:01 Neg mg/dL (Negative) 07/27/18 22:01 20 mg/dL (Negative) 07/27/18 22:01 Neg (Negative) 07/27/18 22:01 Neg (Negative) 07/27/18 22:01 Neg (Negative) 07/27/18 22:01 < 2.0 mg/dL (<2.0) 07/27/18 22:01 Ur Leukocyte Esterase Neg (Negative) 07/27/18 22:01 2.0 /HPF (0.0-6.0) 07/27/18 22:01 7.0 /HPF (0.0-6.0) 07/27/18 22:01 U Epithel Cells (Auto) < 1.0 /HPF (0-13.0) 07/27/18 22:01 Few /HPF 07/27/18 22:01 Active Medications - Current Medications Current Medications: Generic Name Dose Route Start Last Admin Trade Name Freq PRN Reason Stop Dose Admin Acetaminophen 650 mg 07/28/18 01:24 Tylenol PO Q4H PRN Pain MILD(1-3)/Fever >100.5/GANNON Amlodipine Besylate 10 mg 07/28/18 10:00 Norvasc PO DAILY [facility] Aspirin 81 mg 07/28/18 10:00 Baby Aspirin PO QDAY [facility] Atorvastatin Calcium 20 mg 07/28/18 10:00 Lipitor PO QDAY [facility] Dextrose 50 ml 07/28/18 02:29 D50w (25gm) Syringe IV PRN PRN Hypoglycemia Docusate Sodium 100 mg 07/28/18 10:00 Colace PO BID [facility] Ferrous Sulfate 325 mg 07/28/18 10:00 Feosol PO BID [facility] Heparin Sodium (Porcine) 5,000 unit 07/28/18 10:00 Heparin SUB-Q Q12HR [facility] Hydralazine HCl 10 mg 07/28/18 01:33 07/28/18 04:30 Apresoline IV 10 mg Q4HR PRN Administration Blood Pressure Sodium Chloride 1,000 mls @ 100 mls/hr 07/28/18 02:00 07/28/18 02:59 Nacl 0.9% 1000 Ml IV 100 mls/hr DIRECT JAN Administration Levofloxacin/Dextrose 500 mg in 100 mls @ 100 mls/hr 07/28/18 03:00 07/28/18 03:20 Levaquin 500mg/100ml IV 100 mls/hr Q24H JAN Administration Protocol Insulin Human Lispro 0 unit 07/28/18 07:30 Humalog SUB-Q ACHS [facility] Protocol Levetiracetam 1,000 mg 07/28/18 10:00 Keppra PO BID [facility] Levothyroxine Sodium 50 mcg 07/28/18 06:00 07/28/18 05:40 Synthroid PO 50 mcg QAM@0600 JAN Administration Metoprolol Tartrate 50 mg 07/28/18 10:00 Lopressor PO BID [facility] Ondansetron HCl 4 mg 07/28/18 01:24 Zofran IV Q8H PRN Nausea And Vomiting Sodium Chloride 10 ml 07/28/18 10:00 Sodium Chloride Flush Syringe 10 Ml IV BID JAN Sodium Chloride 10 ml 07/28/18 01:24 Sodium Chloride Flush Syringe 10 Ml IV PRN PRN LINE FLUSH
[2018-07-28] MEDS ORDERED: ZOLOFT PO SCH (10:00)
[2018-07-28] MEDS ORDERED: BABY ASPIRIN PO SCH (10:00)
[2018-07-28] MEDS ORDERED: NON-FORMULARY (Ferrous Sulfate [Ferrous Sulfate] 325 MG) PO SCH (10:00)
[2018-07-28] MEDS ORDERED: LEVAQUIN 500MG/100ML 500 MG/100 ML BAG IV SCH (10:00)
[2018-07-28] MEDS ORDERED: NON-FORMULARY (Levetiracetam [Keppra Tab] 1,000 MG) PO SCH (10:00)
[2018-07-28] MEDS: HEPARIN SUB-Q SCH ×2 (10:19→22:28)
[2018-07-28] MEDS: COLACE PO SCH ×2 (10:19→22:18)
[2018-07-28] MEDS: FEOSOL PO SCH ×2 (10:20→22:18)
[2018-07-28] MEDS: KEPPRA PO SCH ×2 (10:20→22:18)
[2018-07-28] MEDS: LOPRESSOR PO SCH ×3 (10:31→22:43)
[2018-07-28] MEDS: NORVASC PO SCH (10:31)
[2018-07-28] MEDS: FLONASE NS SCH (10:32)
[2018-07-28] MEDS: HALDOL PO SCH ×2 (10:32→22:18)
[2018-07-28] MEDS: SODIUM CHLORIDE FLUSH SYRINGE 10 ML IV SCH ×2 (10:33→22:43)
[2018-07-28] MEDS: DILANTIN PO SCH ×2 (10:47→14:07)
--- NOTE | 2018-07-28 13:28 | Consultation ---
History of Present Illness - Reason for Consult Consult date: 07/28/18 Reason for consult: Mental Health EValuation Requesting physician: CAROL ANN LOUIS - Chief Complaint Chief complaint: "The patient is lethargic" - History of Present Psychiatric Illness 63-year-old white female who presented to the ER with generalized weakness. Today the patient is lethargic during the assessment. She could not answer questions when asked. Per collateral information from [place] ([facility]) staff, the patient has a hx of Schizophrenia. The rep verified that the patient takes Haldol and Serioquel. No gestures of SI/Hi's. Medications and Allergies Allergies Allergy/AdvReac Type Severity Reaction Status Date / Time erythromycin base Allergy Rash Verified 12/08/17 13:56 [From E-Mycin] nitrofurantoin Allergy MUSCLE Verified 12/08/17 13:57 [From Macrobid] WEAKNESS,DECREASED MOBILITY vancomycin Allergy Rash Verified 12/08/17 13:56 amoxicillin AdvReac Vomiting Verified 05/01/18 19:09 Home Medications Medication Instructions Recorded Confirmed Last Taken Type Atorvastatin (Nf) [Lipitor (Nf)] 20 mg PO QDAY 12/08/17 05/02/18 04/30/18 20:00 History Azelastine 0.1% (Nf) [Astelin (Nf)] 2 spray INHALATION BID 12/08/17 05/02/18 05/01/18 08:[address] [Depakote Dr] 500 mg PO BID 12/08/17 05/02/18 05/01/18 08:00 History Docusate Sodium [Stool Softener] 100 mg PO BID 12/08/17 05/02/18 05/01/18 08:00 History Ferrous Sulfate 325 mg PO BID 12/08/17 05/02/18 05/01/18 08:00 History Fluticasone [Flonase] 2 spray NS QDAY 12/08/17 05/02/18 05/01/18 08:00 History Haloperidol 10 mg PO BID 12/08/17 05/02/18 05/01/18 08:00 History Levothyroxine [Synthroid] 50 mcg PO QAM 12/08/17 05/02/18 05/01/18 08:00 History Loratadine [Claritin] 10 mg PO DAILY 12/08/17 05/02/18 05/01/18 08:00 History Ondansetron [Zofran TAB] 4 mg PO Q8HR PRN 12/08/17 05/02/18 Unknown History Paliperidone [Paliperidone ER] 1.5 mg PO DAILY 12/08/17 05/02/18 05/01/18 08:00 History Potassium Chloride [Klor-Con 10 meq PO DAILY 12/08/17 05/02/18 05/01/18 08:00 History Sprinkle] Sertraline [Zoloft] 100 mg PO QDAY 12/08/17 05/02/18 05/01/18 08:00 History amLODIPine [Norvasc] 10 mg PO DAILY 12/08/17 05/02/18 05/01/18 08:00 History levETIRAcetam [Keppra TAB] 1,000 mg PO BID 12/08/17 05/02/18 05/01/18 08:00 History Aspirin [Aspirin BABY CHEW TAB] 81 mg PO QDAY 05/02/18 05/02/18 05/01/18 08:00 History Clotrimazole/Betamethasone Dip 1 applicatio TP BID PRN 05/02/18 05/02/18 Unknown History [Lotrisone Cream] Linaclotide (Nf) [Linzess (Nf)] 290 mcg PO QDAY PRN 05/02/18 05/02/18 Unknown History Meloxicam 15 mg PO DAILY 05/02/18 05/02/18 05/01/18 08:00 History Metoprolol [Lopressor TAB] 50 mg PO BID 05/02/18 05/02/18 05/01/18 08:00 History Nystatin Cream [Mycostatin Cream] 1 applicatio TP BID 05/02/18 05/02/18 05/01/18 08:00 History Phenytoin Sodium Extended 200 mg PO QPM 05/02/18 05/02/18 04/30/18 20:00 History Quetiapine Fumarate [SEROquel] 400 mg PO QPM 05/02/18 05/02/18 04/30/18 20:00 History Quetiapine Fumarate [Seroquel] 100 mg PO QAM 05/02/18 05/02/18 05/01/18 08:00 History Phenytoin [Dilantin] 200 mg PO QAM #30 capsule.er 05/03/18 Unknown Rx Active Meds: Active Medications Acetaminophen (Tylenol) 650 mg PO Q4H PRN PRN Reason: Pain MILD(1-3)/Fever >100.5/GANNON Amlodipine Besylate (Norvasc) 10 mg PO DAILY [facility] Last Admin: 07/28/18 10:31 Dose: 10 mg Documented by: Aspirin (Baby Aspirin) 81 mg PO QDAY [facility] Last Admin: 07/28/18 10:20 Dose: 81 mg Documented by: Atorvastatin Calcium (Lipitor) 20 mg PO QDAY [facility] Last Admin: 07/28/18 10:20 Dose: 20 mg Documented by: Dextrose (D50w (25gm) Syringe) 50 ml IV PRN PRN PRN Reason: Hypoglycemia Divalproex Sodium (Depakote Dr) 500 mg PO BID [facility] Last Admin: 07/28/18 10:46 Dose: 500 mg Documented by: Docusate Sodium (Colace) 100 mg PO BID [facility] Last Admin: 07/28/18 10:19 Dose: 100 mg Documented by: Ferrous Sulfate (Feosol) 325 mg PO BID [facility] Last Admin: 07/28/18 10:20 Dose: 325 mg Documented by: Fluticasone Propionate (Flonase) 100 mcg NS QDAY [facility] Last Admin: 07/28/18 10:32 Dose: 100 mcg Documented by: Haloperidol (Haldol) 10 mg PO BID [facility] Last Admin: 07/28/18 10:32 Dose: 10 mg Documented by: Heparin Sodium (Porcine) (Heparin) 5,000 unit SUB-Q Q12HR [facility] Last Admin: 07/28/18 10:19 Dose: 5,000 unit Documented by: Hydralazine HCl (Apresoline) 10 mg IV Q4HR PRN PRN Reason: Blood Pressure Last Admin: 07/28/18 04:30 Dose: 10 mg Documented by: Sodium Chloride (Nacl 0.9% 1000 Ml) 1,000 mls @ 100 mls/hr IV DIRECT [facility] Last Admin: 07/28/18 02:59 Dose: 100 mls/hr Documented by: Levofloxacin/Dextrose (Levaquin 500mg/100ml) 500 mg in 100 mls @ 100 mls/hr IV Q24H [facility]; Protocol Last Admin: 07/28/18 03:20 Dose: 100 mls/hr Documented by: Insulin Human Lispro (Humalog) 0 unit SUB-Q ACHS [facility]; Protocol Levetiracetam (Keppra) 1,000 mg PO BID [facility] Last Admin: 07/28/18 10:20 Dose: 1,000 mg Documented by: Levothyroxine Sodium (Synthroid) 50 mcg PO QAM@0600 [facility] Last Admin: 07/28/18 05:40 Dose: 50 mcg Documented by: Metoprolol Tartrate (Lopressor) 50 mg PO BID [facility] Last Admin: 07/28/18 10:31 Dose: 50 mg Documented by: Miscellaneous Medication (Linaclotide (Nf)) 290 mcg PO QDAY PRN PRN Reason: IBS Ondansetron HCl (Zofran) 4 mg IV Q8H PRN PRN Reason: Nausea And Vomiting Last Admin: 07/28/18 10:14 Dose: 4 mg Documented by: Phenytoin (Dilantin) 200 mg PO QAM [facility] Phenytoin (Dilantin) 200 mg PO QPM [facility] Quetiapine Fumarate (Seroquel) 100 mg PO QAM [facility] Last Admin: 07/28/18 10:47 Dose: 100 mg Documented by: Quetiapine Fumarate (Seroquel) 400 mg PO QPM JAN Sertraline HCl (Zoloft) 100 mg PO QDAY [facility] Last Admin: 07/28/18 10:47 Dose: 100 mg Documented by: Sodium Chloride (Sodium Chloride Flush Syringe 10 Ml) 10 ml IV BID [facility] Last Admin: 07/28/18 10:33 Dose: 10 ml Documented by: Sodium Chloride (Sodium Chloride Flush Syringe 10 Ml) 10 ml IV PRN PRN PRN Reason: LINE FLUSH Mental Status Exam - Vital signs Last Vital Signs Temp 98.5 F 07/28/18 07:36 Pulse 75 07/28/18 10:31 Resp 20 07/28/18 07:36 BP 158/76 07/28/18 10:31 Pulse Ox 95 07/28/18 07:36 Results Result Diagrams: 07/27/18 20:30 07/27/18 20:30 Abnormal lab results 07/27/18 07/27/18 07/28/18 Range/Units 20:30 20:30 11:38 WBC 16.1 H (4.5-11.0) K/mm3 MCHC 35 H (30-34) % [place] % (Auto) 7.6 H (0.0-7.3) % [place] # 1.2 H (0.0-0.8) K/mm3 Seg Neutrophils % 77.1 H (40.0-70.0) % Seg Neutrophils # 12.4 H (1.8-7.7) K/mm3 Sodium 131 L (137-145) mmol/L Chloride 95.0 L (98-107) mmol/L Carbon Dioxide 21 L (22-30) mmol/L Creatinine 0.4 L (0.7-1.2) mg/dL Glucose 126 H (65-100) mg/dL POC Glucose 109 H (70-105) All other labs normal. Assessment and Plan Assessment and plan: Impression: Hx of Schizophrenia per collateral information. Today the patient was lethargic during the assessment. Medical: Acute Metabolic Encephalopathy per the hospitalist, NA 131, WBC 16.1 Recommendation/Plan: Continue Haldol 10 mg PO BID for Schizophrenia. The patient was lethargic, the Seroquel was D/C'd. Reassess the patient in 24 hours. Dispo: Proper dispo will be determined when the patient is medically clear. Staffed with Dr Dione Campbell.
[2018-07-28] MEDS ORDERED: DILANTIN PO SCH (14:00)
[2018-07-28 14:14] LABS: Alanine Aminotransferase 8 units/L (7-56)
[2018-07-28] MEDS: SODIUM CHLORIDE PO SCH (22:19)
[2018-07-29] MEDS: LEVAQUIN 500MG/100ML 500 MG/100 ML BAG IV SCH (02:57)
[2018-07-29 05:41] LABS: Basophils % (Auto) 0.5 % (0.0-1.8); Eosinophils # (Auto) 0.2 K/mm3 (0.0-0.4); Eosinophils % (Auto) 1.7 % (0.0-4.3); Hematocrit 30.8 % (30.3-42.9); Hemoglobin 10.9 gm/dl (10.1-14.3); Lymphocytes % (Auto) 23.2 % (13.4-35.0); Mean Corpuscular HGB Conc 35 % (30-34); Mean Corpuscular Volume 90 fl (79-97); Monocytes # (Auto) 0.8 K/mm3 (0.0-0.8); Monocytes % (Auto) 8.9 % (0.0-7.3); Platelet Count 155 K/mm3 (140-440); Red Blood Count 3.41 M/mm3 (3.65-5.03); Red Cell Distribution Width 13.6 % (13.2-15.2)
[2018-07-29] MEDS: SYNTHROID PO SCH (05:56)
[2018-07-29 06:11] LABS: BUN/Creatinine Ratio 15; Blood Urea Nitrogen 6 mg/dL (7-17); Calcium 8.2 mg/dL (8.4-10.2); Hemolysis Index 43
[2018-07-29] MEDS: NACL 0.9% 1000 ML 1,000 ML IV SCH ×2 (06:12→17:15)
--- NOTE | 2018-07-29 07:42 | Progress Note ---
Assessment and Plan Assessment and plan: --Hypertensive urgency; present on admission/pressures well controlled continue current antihypertensives and when necessary medications --Acute metabolic encephalopathy; probably due to underlying psych disease process Supportive care, psych consult, adjust medications as needed, electrolyte abnormality --Hyponatremia; closely monitor electrolytes, replacement therapy if needed Patient takes sodium chloride tablets at home, 2 more days of treatment *Sodium chloride 1 g twice a day for 2 more days, monitor sodium levels --History of schizophrenia; on medications, medications adjusted As per the information given by the caregiver, psych evaluation --Leukocytosis/fever fever/SIRS Empiric antibiotics, follow cultures, possible UTI --h/o hypothyroidism; continue Synthroid --DVT prophylaxis; Lovenox --DC planning per case management Monitor closely and adjust management as needed Plan of care reviewed with the patient's nurse and the caregiver Follow psych evaluation and recommendations History Interval history: Patient seen and examined medical records reviewed No new events reported by the nursing Patient is lethargic and sleeping Vital signs noted Hospitalist Physical - Constitutional Vitals: Temp Pulse Resp BP Pulse Ox 97.9 F 71 18 122/60 97 07/29/18 02:28 07/29/18 02:28 07/29/18 04:00 07/29/18 02:28 07/29/18 02:28 General appearance: Present: no acute distress (lethargic and noncommunicative), well-nourished, other ( Lethargic) - EENT Eyes: Present: PERRL, EOM intact - Neck Neck: Present: supple, normal ROM - Respiratory Respiratory effort: normal Respiratory: bilateral: diminished, negative: rales, rhonchi, wheezing - Cardiovascular Rhythm: regular Heart Sounds: Present: S1 & S2 - Extremities Extremities: no ischemia, No edema - Abdominal General gastrointestinal: soft, non-tender, non-distended, normal bowel sounds - Integumentary Integumentary: Present: clear, warm - Psychiatric Psychiatric: other (lethargic noncommunicative) - Neurologic Neurologic: CNII-XII intact, moves all extremities Results - Labs CBC & Chem 7: 07/29/18 04:49 07/29/18 04:49 Labs: Laboratory Last Values WBC 8.8 K/mm3 (4.5-11.0) 07/29/18 04:49 RBC 3.41 M/mm3 (3.65-5.03) L 07/29/18 04:49 Hgb 10.9 gm/dl (10.1-14.3) 07/29/18 04:49 Hct 30.8 % (30.3-42.9) 07/29/18 04:49 MCV 90 fl (79-97) 07/29/18 04:49 MCH 32 pg (28-32) 07/29/18 04:49 MCHC 35 % (30-34) H 07/29/18 04:49 RDW 13.6 % (13.2-15.2) 07/29/18 04:49 Plt Count 155 K/mm3 (140-440) 07/29/18 04:49 Lymph % (Auto) 23.2 % (13.4-35.0) 07/29/18 04:49 [place] % (Auto) 8.9 % (0.0-7.3) H 07/29/18 04:49 Eos % (Auto) 1.7 % (0.0-4.3) 07/29/18 04:49 Baso % (Auto) 0.5 % (0.0-1.8) 07/29/18 04:49 Lymph # 2.0 K/mm3 (1.2-5.4) 07/29/18 04:49 Holt # 0.8 K/mm3 (0.0-0.8) 07/29/18 04:49 Eos # 0.2 K/mm3 (0.0-0.4) 07/29/18 04:49 Baso # 0.0 K/mm3 (0.0-0.1) 07/29/18 04:49 Seg Neutrophils % 65.7 % (40.0-70.0) 07/29/18 04:49 Seg Neutrophils # 5.8 K/mm3 (1.8-7.7) 07/29/18 04:49 Sodium 133 mmol/L (137-145) L 07/29/18 04:49 Potassium 4.1 mmol/L (3.6-5.0) 07/29/18 04:49 Chloride 98.3 mmol/L (98-107) 07/29/18 04:49 Carbon Dioxide 22 mmol/L (22-30) 07/29/18 04:49 17 mmol/L 07/29/18 04:49 BUN 6 mg/dL (7-17) L 07/29/18 04:49 0.4 mg/dL (0.7-1.2) L 07/29/18 04:49 Estimated GFR > 60 ml/min 07/29/18 04:49 15 % 07/29/18 04:49 Glucose 92 mg/dL (65-100) 07/29/18 04:49 POC Glucose 107 (70-105) H 07/29/18 07:30 4.9 % (4-6) 07/28/18 03:18 Lactic Acid 1.90 mmol/L (0.7-2.0) 07/28/18 03:18 Calcium 8.2 mg/dL (8.4-10.2) L 07/29/18 04:49 AST 9 units/L (5-40) 07/28/18 12:48 ALT 8 units/L (7-56) 07/28/18 12:48 68 units/L (35-129) 07/28/18 12:48 Amylase 38 units/L (27-131) 07/28/18 12:48 18 units/L (13-60) 07/28/18 12:48 Straw (Yellow) 07/27/18 22:01 Clear (Clear) 07/27/18 22:01 7.0 (5.0-7.0) 07/27/18 22:01 Ur Specific [place] 1.013 (1.003-1.030) 07/27/18 22:01 <15 mg/dl mg/dL (Negative) 07/27/18 22:01 Neg mg/dL (Negative) 07/27/18 22:01 20 mg/dL (Negative) 07/27/18 22:01 Neg (Negative) 07/27/18 22:01 Neg (Negative) 07/27/18 22:01 Neg (Negative) 07/27/18 22:01 < 2.0 mg/dL (<2.0) 07/27/18 22:01 Ur Leukocyte Esterase Neg (Negative) 07/27/18 22:01 2.0 /HPF (0.0-6.0) 07/27/18 22:01 7.0 /HPF (0.0-6.0) 07/27/18 22:01 U Epithel Cells (Auto) < 1.0 /HPF (0-13.0) 07/27/18 22:01 Few /HPF 07/27/18 22:01 Valproic Acid 31.9 ug/mL (50-100) L 07/28/18 12:48 Active Medications - Current Medications Current Medications: Generic Name Dose Route Start Last Admin Trade Name Freq PRN Reason Stop Dose Admin Acetaminophen 650 mg 07/28/18 01:24 Tylenol PO Q4H PRN Pain MILD(1-3)/Fever >100.5/GANNON Amlodipine Besylate 10 mg 07/28/18 10:00 07/28/18 10:31 Norvasc PO 10 mg DAILY JAN Administration Atorvastatin Calcium 20 mg 07/28/18 10:00 07/28/18 10:20 Lipitor PO 20 mg QDAY JAN Administration Dextrose 50 ml 07/28/18 02:29 D50w (25gm) Syringe IV PRN PRN Hypoglycemia Docusate Sodium 100 mg 07/28/18 10:00 07/28/18 22:18 Colace PO 100 mg BID JAN Administration Ferrous Sulfate 325 mg 07/28/18 10:00 07/28/18 22:18 Feosol PO 325 mg BID JAN Administration Fluticasone Propionate 100 mcg 07/28/18 10:00 07/28/18 10:32 Flonase NS 100 mcg QDAY JAN Administration Haloperidol 10 mg 07/28/18 10:00 07/28/18 22:18 Haldol PO 10 mg BID JAN Administration Heparin Sodium (Porcine) 5,000 unit 07/28/18 10:00 07/28/18 22:28 Heparin SUB-Q 5,000 unit Q12HR JAN Administration Hydralazine HCl 10 mg 07/28/18 01:33 07/28/18 04:30 Apresoline IV 10 mg Q4HR PRN Administration Blood Pressure Sodium Chloride 1,000 mls @ 100 mls/hr 07/28/18 02:00 07/29/18 06:12 Nacl 0.9% 1000 Ml IV 100 mls/hr DIRECT JAN Administration Levofloxacin/Dextrose 500 mg in 100 mls @ 100 mls/hr 07/28/18 03:00 07/29/18 02:57 Levaquin 500mg/100ml IV 100 mls/hr Q24H JAN Administration Protocol Insulin Human Lispro 0 unit 07/28/18 07:30 07/28/18 23:15 Humalog SUB-Q Not Given ACHS [facility] Protocol Levetiracetam 1,000 mg 07/28/18 10:00 07/28/18 22:18 Keppra PO 1,000 mg BID JAN Administration Levothyroxine Sodium 50 mcg 07/28/18 06:00 07/29/18 05:56 Synthroid PO 50 mcg QAM@0600 JAN Administration Metoprolol Tartrate 50 mg 07/28/18 10:00 07/28/18 22:43 Lopressor PO Not Given BID JAN Miscellaneous Medication 290 mcg 07/28/18 09:11 Linaclotide (Nf) PO QDAY PRN IBS Ondansetron HCl 4 mg 07/28/18 01:24 07/28/18 10:14 Zofran IV 4 mg Q8H PRN Administration Nausea And Vomiting Quetiapine Fumarate 50 mg 07/29/18 10:00 Seroquel PO DAILY JAN Sodium Chloride 10 ml 07/28/18 10:00 07/28/18 22:43 Sodium Chloride Flush Syringe 10 Ml IV Not Given BID JAN Sodium Chloride 10 ml 07/28/18 01:24 Sodium Chloride Flush Syringe 10 Ml IV PRN PRN LINE FLUSH Sodium Chloride 1 gm 07/28/18 22:00 07/28/18 22:19 Sodium Chloride PO 07/30/18 10:01 1 gm BID JAN Administration Nutrition/Malnutrition Assess - Dietary Evaluation Nutrition/Malnutrition Findings: Nutrition Notes Start: 07/28/18 17:16 Freq: Status: Active Protocol: Document 07/28/18 17:16 RM (Rec: 07/28/18 17:18 [id number]) Nutrition Notes Need for Assessment generated from: MD Order Initial or Follow up Brief Note Labs/Tests A1c 4.9 Subjective/Other Information Consulted for DM diet education. Pt A1c 4.9. DM diet education not appropriate. Nutrition Intervention Revisit per MD consult or patient Sign Off request:
[2018-07-29] MEDS: HumaLOG SUB-Q SCH ×4 (08:31→21:35)
[2018-07-29] MEDS: NORVASC PO SCH (10:00)
[2018-07-29] MEDS: LOPRESSOR PO SCH ×2 (10:00→21:53)
[2018-07-29] MEDS: FLONASE NS SCH (10:00)
[2018-07-29] MEDS: KEPPRA PO SCH ×2 (10:00→21:40)
[2018-07-29] MEDS: SODIUM CHLORIDE PO SCH ×2 (10:01→21:38)
[2018-07-29] MEDS: FEOSOL PO SCH ×2 (10:01→21:40)
[2018-07-29] MEDS: HALDOL PO SCH ×2 (10:01→21:40)
[2018-07-29] MEDS: SODIUM CHLORIDE FLUSH SYRINGE 10 ML IV SCH ×2 (10:01→21:42)
[2018-07-29] MEDS: COLACE PO SCH ×2 (10:01→21:41)
[2018-07-29] MEDS: HEPARIN SUB-Q SCH ×2 (10:43→21:43)
--- NOTE | 2018-07-29 19:47 | Progress Note ---
Subjective - Reason for Consult Consult date: 07/29/18 Reason for consult: follow up - Chief Complaint Chief complaint: non verbal 63-year-old white female who presented to the ER with generalized weakness. Per collateral information from [place] ([facility]) staff, the patient has a hx of Schizophrenia. The rep verified that the patient takes Haldol and Seroquel. No gestures of SI/Hi's. Seroquel was discontinued yesterday to avoid use of 2 antipsychotics. She only shook her head in response to questions. The record confirms she is taking her medicine. Mental Status Exam - Vital signs Last Vital Signs Temp 98.0 F 07/29/18 12:56 Pulse 74 07/29/18 12:56 Resp 20 07/29/18 12:56 BP 136/49 07/29/18 12:56 Pulse Ox 91 07/29/18 12:56 - Exam Narrative exam: alert non verbal/shook her head in response to questions unable to obtain information from patient Assessment and Plan Impression: Hx of Schizophrenia per collateral information. Nonverbal Medical: Acute Metabolic Encephalopathy per the hospitalist, NA 131, WBC 16.1 Recommendation/Plan: Continue Haldol 10 mg PO BID for Schizophrenia. , the Seroquel was discontinued yesterday to avoid use of 2 antipsychotics. Reassess the patient in 24 hours. Dispo: Proper dispo will be determined when the patient is medically clear. Staffed with Dr Dione Campbell.
[2018-07-30] MEDS: NACL 0.9% 1000 ML 1,000 ML IV SCH ×2 (02:53→22:13)
[2018-07-30] MEDS: LEVAQUIN 500MG/100ML 500 MG/100 ML BAG IV SCH (03:00)
[2018-07-30 04:15] LABS: Basophils # (Auto) 0.1 K/mm3 (0.0-0.1); Basophils % (Auto) 0.5 % (0.0-1.8); Eosinophils # (Auto) 0.1 K/mm3 (0.0-0.4); Eosinophils % (Auto) 0.9 % (0.0-4.3); Hematocrit 32.1 % (30.3-42.9); Hemoglobin 11.4 gm/dl (10.1-14.3); Lymphocytes # (Auto) 1.6 K/mm3 (1.2-5.4); Mean Corpuscular HGB Conc 35 % (30-34); Mean Corpuscular Volume 91 fl (79-97); Monocytes # (Auto) 0.8 K/mm3 (0.0-0.8); Monocytes % (Auto) 7.8 % (0.0-7.3); Platelet Count 159 K/mm3 (140-440); Red Blood Count 3.54 M/mm3 (3.65-5.03); Red Cell Distribution Width 13.8 % (13.2-15.2)
[2018-07-30 04:37] LABS: BUN/Creatinine Ratio 12; Blood Urea Nitrogen 6 mg/dL (7-17); Calcium 8.2 mg/dL (8.4-10.2); Hemolysis Index 36
[2018-07-30] MEDS: SYNTHROID PO SCH (06:50)
[2018-07-30] MEDS: HumaLOG SUB-Q SCH ×4 (07:37→23:28)
[2018-07-30] MEDS: KEPPRA PO SCH ×2 (10:12→21:57)
[2018-07-30] MEDS: COLACE PO SCH ×2 (10:12→21:57)
[2018-07-30] MEDS: FEOSOL PO SCH ×2 (10:12→21:58)
[2018-07-30] MEDS: NORVASC PO SCH (10:13)
[2018-07-30] MEDS: LOPRESSOR PO SCH ×2 (10:13→21:57)
[2018-07-30] MEDS: HALDOL PO SCH ×2 (10:14→21:58)
[2018-07-30] MEDS: SODIUM CHLORIDE FLUSH SYRINGE 10 ML IV SCH ×2 (10:15→22:13)
[2018-07-30] MEDS: HEPARIN SUB-Q SCH ×2 (10:18→21:58)
[2018-07-30] MEDS: SODIUM CHLORIDE PO SCH (10:26)
[2018-07-30] MEDS: FLONASE NS SCH (10:26)
--- NOTE | 2018-07-30 19:07 | Progress Note ---
Subjective - Reason for Consult Consult date: 07/30/18 Reason for consult: follow up - Chief Complaint Chief complaint: non verbal 63-year-old white female who presented to the ER with generalized weakness. Per collateral information from [facility] ([facility]) staff, the patient has a hx of Schizophrenia. The rep verified that the patient takes Haldol and Seroquel. No gestures of SI/Hi's. Seroquel was discontinued 2 days ago to avoid use of 2 antipsychotics. She only shook her head in response to questions. The record confirms she is taking her medicine.---no changes from the previous exam. Mental Status Exam - Vital signs Last Vital Signs Temp 98.6 F 07/30/18 08:18 Pulse 77 07/30/18 08:18 Resp 20 07/30/18 02:23 BP 150/56 07/30/18 10:13 Pulse Ox 98 07/30/18 08:18 - Exam Narrative exam: alert non verbal/shook her head in response to questions unable to obtain information from patient Assessment and Plan Impression: Hx of Schizophrenia per collateral information. Nonverbal Medical: Acute Metabolic Encephalopathy per the hospitalist, NA 131, WBC 16.1 Recommendation/Plan: Continue Haldol 10 mg PO BID for Schizophrenia. The Seroquel was discontinued to avoid use of 2 antipsychotics. Reassess the patient in 24 hours. Dispo: Proper dispo will be determined when the patient is medically clear. Staffed with Dr Dione Campbell.
--- NOTE | 2018-07-30 19:40 | Progress Note ---
Assessment and Plan Assessment and plan: --Acute metabolic encephalopathy; probably due to underlying psych disease process Supportive care, psych consult, adjust medications as needed, electrolyte abnormality --Hypertensive urgency; present on admission/pressures well controlled continue current antihypertensives and when necessary medications --Hyponatremia; closely monitor electrolytes, replacement therapy if needed Patient takes sodium chloride tablets at home, 2 more days of treatment *Sodium chloride 1 g twice a day for 2 more days, monitor sodium levels --History of schizophrenia; on medications, medications adjusted As per the information given by the caregiver, psych evaluation --Leukocytosis/fever fever/SIRS Empiric antibiotics, follow cultures, possible UTI --h/o hypothyroidism; continue Synthroid --DVT prophylaxis; Lovenox --DC planning per case management Monitor closely and adjust management as needed Plan of care reviewed with the patient's nurse and the caregiver Follow psych evaluation and recommendations History Interval history: Patient seen and examined medical records reviewed Patient is lethargic always sleeping Not in acute distress Vital signs noted Hospitalist Physical - Constitutional Vitals: Temp Pulse Resp BP Pulse Ox 98.0 F 72 20 167/74 94 07/30/18 16:51 07/30/18 16:51 07/30/18 02:23 07/30/18 19:29 07/30/18 16:51 General appearance: Present: no acute distress (lethargic and noncommunicative), well-nourished, other ( Lethargic) - EENT Eyes: Present: PERRL, EOM intact - Neck Neck: Present: supple, normal ROM - Respiratory Respiratory effort: normal Respiratory: bilateral: diminished, negative: rales, rhonchi, wheezing - Cardiovascular Rhythm: regular Heart Sounds: Present: S1 & S2 - Extremities Extremities: no ischemia, No edema - Abdominal General gastrointestinal: soft, non-tender, non-distended, normal bowel sounds - Integumentary Integumentary: Present: clear, warm - Psychiatric Psychiatric: other (confused) - Neurologic Neurologic: moves all extremities Results - Labs CBC & Chem 7: 07/30/18 03:52 07/30/18 03:52 Labs: Laboratory Last Values WBC 10.0 K/mm3 (4.5-11.0) 07/30/18 03:52 RBC 3.54 M/mm3 (3.65-5.03) L 07/30/18 03:52 Hgb 11.4 gm/dl (10.1-14.3) 07/30/18 03:52 Hct 32.1 % (30.3-42.9) 07/30/18 03:52 MCV 91 fl (79-97) 07/30/18 03:52 MCH 32 pg (28-32) 07/30/18 03:52 MCHC 35 % (30-34) H 07/30/18 03:52 RDW 13.8 % (13.2-15.2) 07/30/18 03:52 Plt Count 159 K/mm3 (140-440) 07/30/18 03:52 Lymph % (Auto) 16.0 % (13.4-35.0) 07/30/18 03:52 [place] % (Auto) 7.8 % (0.0-7.3) H 07/30/18 03:52 Eos % (Auto) 0.9 % (0.0-4.3) 07/30/18 03:52 Baso % (Auto) 0.5 % (0.0-1.8) 07/30/18 03:52 Lymph # 1.6 K/mm3 (1.2-5.4) 07/30/18 03:52 [place] # 0.8 K/mm3 (0.0-0.8) 07/30/18 03:52 Eos # 0.1 K/mm3 (0.0-0.4) 07/30/18 03:52 Baso # 0.1 K/mm3 (0.0-0.1) 07/30/18 03:52 Seg Neutrophils % 74.8 % (40.0-70.0) H 07/30/18 03:52 Seg Neutrophils # 7.4 K/mm3 (1.8-7.7) 07/30/18 03:52 Sodium 136 mmol/L (137-145) L 07/30/18 03:52 Potassium 3.9 mmol/L (3.6-5.0) 07/30/18 03:52 Chloride 99.8 mmol/L (98-107) 07/30/18 03:52 Carbon Dioxide 21 mmol/L (22-30) L 07/30/18 03:52 19 mmol/L 07/30/18 03:52 BUN 6 mg/dL (7-17) L 07/30/18 03:52 0.5 mg/dL (0.7-1.2) L 07/30/18 03:52 Estimated GFR > 60 ml/min 07/30/18 03:52 12 % 07/30/18 03:52 Glucose 124 mg/dL (65-100) H 07/30/18 03:52 POC Glucose 106 (70-105) H 07/30/18 18:21 4.9 % (4-6) 07/28/18 03:18 Lactic Acid 1.90 mmol/L (0.7-2.0) 07/28/18 03:18 Calcium 8.2 mg/dL (8.4-10.2) L 07/30/18 03:52 Magnesium 1.80 mg/dL (1.7-2.3) 07/30/18 03:52 AST 9 units/L (5-40) 07/28/18 12:48 ALT 8 units/L (7-56) 07/28/18 12:48 68 units/L (35-129) 07/28/18 12:48 Amylase 38 units/L (27-131) 07/28/18 12:48 18 units/L (13-60) 07/28/18 12:48 Straw (Yellow) 07/27/18 22:01 Clear (Clear) 07/27/18 22:01 7.0 (5.0-7.0) 07/27/18 22:01 Ur Specific [place] 1.013 (1.003-1.030) 07/27/18 22:01 <15 mg/dl mg/dL (Negative) 07/27/18 22:01 Neg mg/dL (Negative) 07/27/18 22:01 20 mg/dL (Negative) 07/27/18 22:01 Neg (Negative) 07/27/18 22:01 Neg (Negative) 07/27/18 22:01 Neg (Negative) 07/27/18 22:01 < 2.0 mg/dL (<2.0) 07/27/18 22:01 Ur Leukocyte Esterase Neg (Negative) 07/27/18 22:01 2.0 /HPF (0.0-6.0) 07/27/18 22:01 7.0 /HPF (0.0-6.0) 07/27/18 22:01 U Epithel Cells (Auto) < 1.0 /HPF (0-13.0) 07/27/18 22:01 Few /HPF 07/27/18 22:01 Valproic Acid 31.9 ug/mL (50-100) L 07/28/18 12:48 Active Medications - Current Medications Current Medications: Generic Name Dose Route Start Last Admin Trade Name Freq PRN Reason Stop Dose Admin Acetaminophen 650 mg 07/28/18 01:24 Tylenol PO Q4H PRN Pain MILD(1-3)/Fever >100.5/GANNON Amlodipine Besylate 10 mg 07/28/18 10:00 07/30/18 10:13 Norvasc PO 10 mg DAILY JAN Administration Atorvastatin Calcium 20 mg 07/28/18 10:00 07/30/18 10:12 Lipitor PO 20 mg QDAY JAN Administration Dextrose 50 ml 07/28/18 02:29 D50w (25gm) Syringe IV PRN PRN Hypoglycemia Docusate Sodium 100 mg 07/28/18 10:00 07/30/18 10:12 Colace PO 100 mg BID JAN Administration Ferrous Sulfate 325 mg 07/28/18 10:00 07/30/18 10:12 Feosol PO 325 mg BID JAN Administration Fluticasone Propionate 100 mcg 07/28/18 10:00 07/30/18 10:26 Flonase NS 100 mcg QDAY JAN Administration Haloperidol 10 mg 07/28/18 10:00 07/30/18 10:14 Haldol PO Not Given BID JAN Heparin Sodium (Porcine) 5,000 unit 07/28/18 10:00 07/30/18 10:18 Heparin SUB-Q 5,000 unit Q12HR JAN Administration Hydralazine HCl 10 mg 07/28/18 01:33 07/28/18 04:30 Apresoline IV 10 mg Q4HR PRN Administration Blood Pressure Sodium Chloride 1,000 mls @ 100 mls/hr 07/28/18 02:00 07/30/18 02:53 Nacl 0.9% 1000 Ml IV 100 mls/hr DIRECT JAN Administration Levofloxacin/Dextrose 500 mg in 100 mls @ 100 mls/hr 07/28/18 03:00 07/30/18 03:00 Levaquin 500mg/100ml IV 100 mls/hr Q24H JAN Administration Protocol Insulin Human Lispro 0 unit 07/28/18 07:30 07/30/18 18:17 Humalog SUB-Q Not Given A[facility]S [facility] Protocol Levetiracetam 1,000 mg 07/28/18 10:00 07/30/18 10:12 Keppra PO 1,000 mg BID JAN Administration Levothyroxine Sodium 50 mcg 07/28/18 06:00 07/30/18 06:50 Synthroid PO 50 mcg QAM@0600 JAN Administration Metoprolol Tartrate 50 mg 07/28/18 10:00 07/30/18 10:13 Lopressor PO 50 mg BID JAN Administration Miscellaneous Medication 290 mcg 07/28/18 09:11 Linaclotide (Nf) PO QDAY PRN IBS Ondansetron HCl 4 mg 07/28/18 01:24 07/28/18 10:14 Zofran IV 4 mg Q8H PRN Administration Nausea And Vomiting Quetiapine Fumarate 50 mg 07/29/18 10:00 07/30/18 10:14 Seroquel PO Not Given DAILY JAN Sodium Chloride 10 ml 07/28/18 10:00 07/30/18 10:15 Sodium Chloride Flush Syringe 10 Ml IV Not Given BID JAN Sodium Chloride 10 ml 07/28/18 01:24 Sodium Chloride Flush Syringe 10 Ml IV PRN PRN LINE FLUSH Nutrition/Malnutrition Assess - Dietary Evaluation Nutrition/Malnutrition Findings: Nutrition Notes Start: 07/28/18 17:16 Freq: Status: Active Protocol: Document 07/29/18 16:57 RM (Rec: 07/29/18 17:03 RM [id number]) Nutrition Notes Initial or Follow up Assessment Current Diagnosis Diabetes,Hypertension Other Pertinent Diagnosis Seizure, Schizophrenia, Acute metabolic encephalopathy, Mild retardation Current Diet Regular Labs/Tests Reviewed Pertinent Medications Reviewed Height 5 ft 7 in Weight 86.183 kg [place] Body Weight (kg) 61.36 BMI 29.7 Subjective/Other Information Screened for malnutrition. Pt asleep at time of visit. Per tech pt has been eating bites of her meals. No temporal or orbital wasting. Percent of energy/protein needs met: 0%/0% Burn Absent Trauma Absent #1 Nutrition Diagnosis Inadequate oral intake Etiology mild retardation, acute encephalopathy As Evidenced by Signs and Symptoms pt tech statement that pt is eating bites of her meals Is patient on ventilator? No Is Patient Ambulatory and/or Out of Bed No REE-([facility]-confined to bed) 5554.453 Calculation Used for Recommendations [facility] Additional Notes Protein Needs: 86-103g (1-1.2g /kg) Fluid Needs: 1 ml/kcal Nutrition Intervention Change Diet Order: Consistent CHO Add Supplement/Snack (indicate name/kcal Glucerna 1 daily /protein ) Provides kCal: 220 Provides Protein (gm) 10 Goal #1 Meet at least 75% of calorie and protein needs via PO and ONS intakes Anticipated Discharge Needs: Consisent CHO diet Follow-Up By: 07/31/18 Additional Comments Follow for malnutrition,PO and ONS intakes
[2018-07-31] MEDS: LEVAQUIN 500MG/100ML 500 MG/100 ML BAG IV SCH (03:29)
[2018-07-31 05:17] LABS: BUN/Creatinine Ratio 13; Blood Urea Nitrogen 5 mg/dL (7-17); Calcium 8.8 mg/dL (8.4-10.2); Hemolysis Index 8
[2018-07-31] MEDS: SYNTHROID PO SCH (05:53)
[2018-07-31] MEDS: HumaLOG SUB-Q SCH ×4 (08:28→22:16)
[2018-07-31] MEDS: NACL 0.9% 1000 ML 1,000 ML IV SCH ×2 (09:49→22:20)
[2018-07-31] MEDS: NORVASC PO SCH (09:50)
[2018-07-31] MEDS: COLACE PO SCH ×2 (09:50→22:15)
[2018-07-31] MEDS: KEPPRA PO SCH ×2 (09:50→22:16)
[2018-07-31] MEDS: FEOSOL PO SCH ×2 (09:50→22:15)
[2018-07-31] MEDS: HALDOL PO SCH ×2 (09:50→22:16)
[2018-07-31] MEDS: HEPARIN SUB-Q SCH ×2 (09:51→22:16)
[2018-07-31] MEDS: FLONASE NS SCH (09:51)
[2018-07-31] MEDS: LOPRESSOR PO SCH ×2 (09:51→22:15)
--- NOTE | 2018-07-31 11:12 | Progress Note ---
Subjective - Reason for Consult Consult date: 07/31/18 Reason for consult: Psychiatry Follow-up - Chief Complaint Chief complaint: 'Hello" 63-year-old white female who presented to the ER with generalized weakness. Today the patient was calm during the assessment. She was observed feeding herself upon my arrival to her room. She was willing to answer some questions asked of her. She would not confirm or deny that she see Dr Hermosillo for outpatient services. She denies SI/HI's and AVH's. No indications of side effects of her medication. Mental Status Exam - Vital signs Last Vital Signs Temp 97.4 F L 07/31/18 07:52 Pulse 69 07/31/18 09:50 Resp 18 07/31/18 07:52 BP 152/58 07/31/18 09:50 Pulse Ox 95 07/31/18 07:52 - Exam Narrative exam: MSE: Appearance: calm Behavior: regular eye contact Speech: slow rate and tone Mood: "okay" Affect: congruent to mood Thought Process: circumstantial Thought Content: denies SI/HI's and AVH's Motor Activity: sitting up in bed Cognition: A/O x3 Insight: variable to fair Judgment: variable to fair Assessment and Plan Impression: Hx of Schizophrenia per collateral information. Today the patient was calm during the assessment. Medical: Acute Metabolic Encephalopathy per the hospitalist Recommendation/Plan: Continue Haldol 10 mg PO BID for Schizophrenia. Called and left a voicemail for the patient's sister Elinor Perez. . Dispo: The patient can follow up with Dr Hermosillo for outpatient psy services. Will staff with Dr Dione Campbell.
--- NOTE | 2018-07-31 17:55 | Progress Note ---
Assessment and Plan Assessment and plan: 63-year-old female with history of mild developmentally delayed, seizure, hypertension, diabetes, schizophrenia was admitted throug ER with altered mental status and weakness as well as uncontrolled HTN.Patient also has h/o schizophrenia,psych evaluated the patient and optimised meds .SIRS and leukocytosis at admission ,on emperic Antibiotics negative cultures.Psych cleared to f/u out pt upon discharge. Discharge planning per casemanagement.May dc 1-2 days --Acute metabolic encephalopathy; probably due to underlying psych disease process Supportive care, psych consult, adjust medications as needed, electrolyte abnormality --Hypertensive urgency; present on admission/pressures well controlled continue current antihypertensives and when necessary medications --Hyponatremia; closely monitor electrolytes, replacement therapy if needed Patient takes sodium chloride tablets at home, 2 more days of treatment *Sodium chloride 1 g twice a day for 2 more days, monitor sodium levels --History of schizophrenia; on medications, medications adjusted As per the information given by the caregiver, psych evaluation --Leukocytosis/fever fever/SIRS Empiric antibiotics, follow cultures, possible UTI --h/o hypothyroidism; continue Synthroid --DVT prophylaxis; Lovenox --DC planning per case management Monitor closely and adjust management as needed Plan of care reviewed with the patient's nurse and the caregiver psych cleared.Discharge in 1-2 days if stable History Interval history: Patient seen and examined,medical records reviewed Patient is calm and not in distress Vital signs reviewed Hospitalist Physical - Constitutional Vitals: Temp Pulse Resp BP Pulse Ox 97.4 F L 69 18 152/58 95 07/31/18 07:52 07/31/18 09:50 07/31/18 07:52 07/31/18 09:50 07/31/18 10:00 General appearance: Present: no acute distress (lethargic and noncommunicative), well-nourished - EENT Eyes: Present: PERRL, EOM intact - Neck Neck: Present: supple, normal ROM - Respiratory Respiratory effort: normal Respiratory: bilateral: diminished, negative: rales, rhonchi, wheezing - Cardiovascular Rhythm: regular Heart Sounds: Present: S1 & S2 - Extremities Extremities: no ischemia, No edema - Abdominal General gastrointestinal: soft, non-tender, non-distended, normal bowel sounds - Integumentary Integumentary: Present: clear, warm - Psychiatric Psychiatric: other (minimally communicative) - Neurologic Neurologic: moves all extremities Results - Labs CBC & Chem 7: 07/30/18 03:52 07/31/18 04:07 Labs: Laboratory Last Values WBC 10.0 K/mm3 (4.5-11.0) 07/30/18 03:52 RBC 3.54 M/mm3 (3.65-5.03) L 07/30/18 03:52 Hgb 11.4 gm/dl (10.1-14.3) 07/30/18 03:52 Hct 32.1 % (30.3-42.9) 07/30/18 03:52 MCV 91 fl (79-97) 07/30/18 03:52 MCH 32 pg (28-32) 07/30/18 03:52 MCHC 35 % (30-34) H 07/30/18 03:52 RDW 13.8 % (13.2-15.2) 07/30/18 03:52 Plt Count 159 K/mm3 (140-440) 07/30/18 03:52 Lymph % (Auto) 16.0 % (13.4-35.0) 07/30/18 03:52 [place] % (Auto) 7.8 % (0.0-7.3) H 07/30/18 03:52 Eos % (Auto) 0.9 % (0.0-4.3) 07/30/18 03:52 Baso % (Auto) 0.5 % (0.0-1.8) 07/30/18 03:52 Lymph # 1.6 K/mm3 (1.2-5.4) 07/30/18 03:52 [place] # 0.8 K/mm3 (0.0-0.8) 07/30/18 03:52 Eos # 0.1 K/mm3 (0.0-0.4) 07/30/18 03:52 Baso # 0.1 K/mm3 (0.0-0.1) 07/30/18 03:52 Seg Neutrophils % 74.8 % (40.0-70.0) H 07/30/18 03:52 Seg Neutrophils # 7.4 K/mm3 (1.8-7.7) 07/30/18 03:52 Sodium 139 mmol/L (137-145) 07/31/18 04:07 Potassium 4.1 mmol/L (3.6-5.0) 07/31/18 04:07 Chloride 105.1 mmol/L (98-107) 07/31/18 04:07 Carbon Dioxide 23 mmol/L (22-30) 07/31/18 04:07 15 mmol/L 07/31/18 04:07 BUN 5 mg/dL (7-17) L 07/31/18 04:07 0.4 mg/dL (0.7-1.2) L 07/31/18 04:07 Estimated GFR > 60 ml/min 07/31/18 04:07 13 % 07/31/18 04:07 Glucose 116 mg/dL (65-100) H 07/31/18 04:07 POC Glucose 168 (70-105) H 07/31/18 16:19 4.9 % (4-6) 07/28/18 03:18 Lactic Acid 1.90 mmol/L (0.7-2.0) 07/28/18 03:18 Calcium 8.8 mg/dL (8.4-10.2) 07/31/18 04:07 Magnesium 1.80 mg/dL (1.7-2.3) 07/30/18 03:52 AST 9 units/L (5-40) 07/28/18 12:48 ALT 8 units/L (7-56) 07/28/18 12:48 68 units/L (35-129) 07/28/18 12:48 Amylase 38 units/L (27-131) 07/28/18 12:48 18 units/L (13-60) 07/28/18 12:48 Straw (Yellow) 07/27/18 22:01 Clear (Clear) 07/27/18 22:01 7.0 (5.0-7.0) 07/27/18 22:01 Ur Specific [place] 1.013 (1.003-1.030) 07/27/18 22:01 <15 mg/dl mg/dL (Negative) 07/27/18 22:01 Neg mg/dL (Negative) 07/27/18 22:01 20 mg/dL (Negative) 07/27/18 22:01 Neg (Negative) 07/27/18 22:01 Neg (Negative) 07/27/18 22:01 Neg (Negative) 07/27/18 22:01 < 2.0 mg/dL (<2.0) 07/27/18 22:01 Ur Leukocyte Esterase Neg (Negative) 07/27/18 22:01 2.0 /HPF (0.0-6.0) 07/27/18 22:01 7.0 /HPF (0.0-6.0) 07/27/18 22:01 U Epithel Cells (Auto) < 1.0 /HPF (0-13.0) 07/27/18 22:01 Few /HPF 07/27/18 22:01 Valproic Acid 31.9 ug/mL (50-100) L 07/28/18 12:48 Active Medications - Current Medications Current Medications: Generic Name Dose Route Start Last Admin Trade Name Freq PRN Reason Stop Dose Admin Acetaminophen 650 mg 07/28/18 01:24 Tylenol PO Q4H PRN Pain MILD(1-3)/Fever >100.5/AGNNON Amlodipine Besylate 10 mg 07/28/18 10:00 07/31/18 09:50 Norvasc PO 10 mg DAILY JAN Administration Atorvastatin Calcium 20 mg 07/28/18 10:00 07/31/18 09:51 Lipitor PO 20 mg QDAY JAN Administration Dextrose 50 ml 07/28/18 02:29 D50w (25gm) Syringe IV PRN PRN Hypoglycemia Docusate Sodium 100 mg 07/28/18 10:00 07/31/18 09:50 Colace PO 100 mg BID JAN Administration Ferrous Sulfate 325 mg 07/28/18 10:00 07/31/18 09:50 Feosol PO 325 mg BID JAN Administration Fluticasone Propionate 100 mcg 07/28/18 10:00 07/31/18 09:51 Flonase NS 100 mcg QDAY JNA Administration Haloperidol 10 mg 07/28/18 10:00 07/31/18 09:50 Haldol PO 10 mg BID JAN Administration Heparin Sodium (Porcine) 5,000 unit 07/28/18 10:00 07/31/18 09:51 Heparin SUB-Q 5,000 unit Q12HR JAN Administration Hydralazine HCl 10 mg 07/28/18 01:33 07/28/18 04:30 Apresoline IV 10 mg Q4HR PRN Administration Blood Pressure Sodium Chloride 1,000 mls @ 100 mls/hr 07/28/18 02:00 07/31/18 09:49 Nacl 0.9% 1000 Ml IV 100 mls/hr DIRECT JAN Administration Levofloxacin/Dextrose 500 mg in 100 mls @ 100 mls/hr 07/28/18 03:00 07/31/18 03:29 Levaquin 500mg/100ml IV 100 mls/hr Q24H JAN Administration Protocol Insulin Human Lispro 0 unit 07/28/18 07:30 07/31/18 08:28 Humalog SUB-Q Not Given ACHS JAN Protocol Levetiracetam 1,000 mg 07/28/18 10:00 07/31/18 09:50 Keppra PO 1,000 mg BID JAN Administration Levothyroxine Sodium 50 mcg 07/28/18 06:00 07/31/18 05:53 Synthroid PO 50 mcg QAM@0600 JAN Administration Metoprolol Tartrate 50 mg 07/28/18 10:00 07/31/18 09:51 Lopressor PO 50 mg BID JAN Administration Miscellaneous Medication 290 mcg 07/28/18 09:11 Linaclotide (Nf) PO QDAY PRN IBS Ondansetron HCl 4 mg 07/28/18 01:24 07/28/18 10:14 Zofran IV 4 mg Q8H PRN Administration Nausea And Vomiting Quetiapine Fumarate 50 mg 07/29/18 10:00 07/31/18 09:50 Seroquel PO 50 mg DAILY JAN Administration Sodium Chloride 10 ml 07/28/18 10:00 07/30/18 22:13 Sodium Chloride Flush Syringe 10 Ml IV 10 ml BID JAN Administration Sodium Chloride 10 ml 07/28/18 01:24 Sodium Chloride Flush Syringe 10 Ml IV PRN PRN LINE FLUSH Nutrition/Malnutrition Assess - Dietary Evaluation Nutrition/Malnutrition Findings: Nutrition Notes Start: 07/28/18 17:16 Freq: Status: Active Protocol: Document 07/31/18 16:08 RM (Rec: 07/31/18 16:14 RM [id number]) Nutrition Notes Initial or Follow up Reassessment Current Diagnosis Diabetes,Hypertension Other Pertinent Diagnosis Seizure, Schizophrenia, Acute metabolic encephalopathy, Mild retardation Current Diet Cardiac/Consisent CHO Labs/Tests Reviewed Pertinent Medications Reviewed Height 5 ft 7 in Weight 86.183 kg [place] Body Weight (kg) 61.36 BMI 29.7 Subjective/Other Information Pt unable to communicate at time of visit. Noted lunch at bedside w/most eaten and unopened Glucerna. Per tech pt ate most of breakfast. Percent of energy/protein needs met: 85%/73% Burn Absent Trauma Absent #1 Nutrition Diagnosis Inadequate oral intake As Evidenced by Signs and Symptoms pt meeting 85% of calorie and 73% of protein needs Diagnosis Progress(for reassessment Resolved documentation) Is patient on ventilator? No Is Patient Ambulatory and/or Out of Bed No REE-([place]-confined to bed) [phone] [facility] Additional Notes Protein Needs: 86-103g (1-1.2g /kg) Fluid Needs: 1 ml/kcal Nutrition Intervention Change Diet Order: Continue current Add Supplement/Snack (indicate name/kcal D/C Glucerna /protein ) Goal #1 Continue to meet at least 75% of calorie and protein needs via PO and ONS intakes Anticipated Discharge Needs: Consisent CHO diet Revisit per MD consult or patient Sign Off request:
[2018-07-31] MEDS: SODIUM CHLORIDE FLUSH SYRINGE 10 ML IV SCH ×2 (18:05→22:17)
[2018-08-01] MEDS: LEVAQUIN 500MG/100ML 500 MG/100 ML BAG IV SCH (03:12)
[2018-08-01] MEDS: SYNTHROID PO SCH (06:26)
[2018-08-01] MEDS: NACL 0.9% 1000 ML 1,000 ML IV SCH ×2 (06:29→17:25)
--- NOTE | 2018-08-01 07:57 | Progress Note ---
Assessment and Plan Assessment and plan: 63-year-old female with history of mild developmentally delayed, seizure, hypertension, diabetes, schizophrenia presents [facility] ED with complaints of altered mental status and generalized weakness. Of note patient was seen in ED on 07/25/18 for complaints of generalized weakness and hyponatremia. She received IVF and was discharged. Also, patient was recently admitted to [facility] and treated for similar complaints as well. Pt is non-verbal and history is provided by caregiver and review of medical records. At baseline pt is able to ambulate without difficulty, and has slurred speech . For the past 2 days she has gotten weak and is unable to ambulate. According to caregiver pt experiences generalized tremors when her sodium is low or if she has a UTI. It is not clear whether or not pt has experienced any tremors in the past 2 days. --Acute metabolic encephalopathy; probably due to underlying psych disease process Supportive care, psych consult, adjust medications as needed, electrolyte abnormality IF no improvement in mental status will obtain CT head --Hypertensive urgency; present on admission/pressures well controlled continue current antihypertensives and when necessary medications --Hyponatremia; closely monitor electrolytes, replacement therapy if needed Patient takes sodium chloride tablets at home, 2 more days of treatment --History of schizophrenia; on medications, medications adjusted As per the information given by the caregiver, psych evaluation Continue Haldol 10mg po bid --Leukocytosis/fever fever/SIRS Empiric antibiotics, follow cultures, possible UTI --h/o hypothyroidism; continue Synthroid --DVT prophylaxis; Lovenox --DC planning per case management Monitor closely and adjust management as needed Plan of care reviewed with the patient's nurse and the caregiver Follow psych evaluation and recommendations History Interval history: Patient seen and examined, awake, oriented to person, answered simple questions. states that she is hungry and she pays a lot of money not to be hungry. she also states she can't walk but use to walk with a cane, walker Hospitalist Physical - Physical exam Narrative exam: General appearance: Present: no acute distress, awake, well-nourished - EENT Eyes: Present: PERRL, EOM intact - Neck Neck: Present: supple, normal ROM - Respiratory Respiratory effort: normal Respiratory: bilateral: diminished, negative: rales, rhonchi, wheezing - Cardiovascular Rhythm: regular Heart Sounds: Present: S1 & S2 - Extremities Extremities: no ischemia, No edema - Abdominal General gastrointestinal: soft, non-tender, non-distended, normal bowel sounds - Integumentary Integumentary: Present: clear, warm - Psychiatric Psychiatric: communicative, answers some simple questions - Neurologic Neurologic: moves all extremities - Constitutional Vitals: Temp Pulse Resp BP Pulse Ox 97.6 F 65 18 149/78 94 08/01/18 02:21 08/01/18 02:21 08/01/18 02:21 08/01/18 02:21 08/01/18 02:21 General appearance: Present: no acute distress (lethargic and noncommunicative), well-nourished, other ( Lethargic) Results - Labs CBC & Chem 7: 07/30/18 03:52 07/31/18 04:07 Labs: Laboratory Last Values WBC 10.0 K/mm3 (4.5-11.0) 07/30/18 03:52 RBC 3.54 M/mm3 (3.65-5.03) L 07/30/18 03:52 Hgb 11.4 gm/dl (10.1-14.3) 07/30/18 03:52 Hct 32.1 % (30.3-42.9) 07/30/18 03:52 MCV 91 fl (79-97) 07/30/18 03:52 MCH 32 pg (28-32) 07/30/18 03:52 MCHC 35 % (30-34) H 07/30/18 03:52 RDW 13.8 % (13.2-15.2) 07/30/18 03:52 Plt Count 159 K/mm3 (140-440) 07/30/18 03:52 Lymph % (Auto) 16.0 % (13.4-35.0) 07/30/18 03:52 [place] % (Auto) 7.8 % (0.0-7.3) H 07/30/18 03:52 Eos % (Auto) 0.9 % (0.0-4.3) 07/30/18 03:52 Baso % (Auto) 0.5 % (0.0-1.8) 07/30/18 03:52 Lymph # 1.6 K/mm3 (1.2-5.4) 07/30/18 03:52 [place] # 0.8 K/mm3 (0.0-0.8) 07/30/18 03:52 Eos # 0.1 K/mm3 (0.0-0.4) 07/30/18 03:52 Baso # 0.1 K/mm3 (0.0-0.1) 07/30/18 03:52 Seg Neutrophils % 74.8 % (40.0-70.0) H 07/30/18 03:52 Seg Neutrophils # 7.4 K/mm3 (1.8-7.7) 07/30/18 03:52 Sodium 139 mmol/L (137-145) 07/31/18 04:07 Potassium 4.1 mmol/L (3.6-5.0) 07/31/18 04:07 Chloride 105.1 mmol/L (98-107) 07/31/18 04:07 Carbon Dioxide 23 mmol/L (22-30) 07/31/18 04:07 15 mmol/L 07/31/18 04:07 BUN 5 mg/dL (7-17) L 07/31/18 04:07 0.4 mg/dL (0.7-1.2) L 07/31/18 04:07 Estimated GFR > 60 ml/min 07/31/18 04:07 13 % 07/31/18 04:07 Glucose 116 mg/dL (65-100) H 07/31/18 04:07 POC Glucose 133 (70-105) H 07/31/18 21:21 4.9 % (4-6) 07/28/18 03:18 Lactic Acid 1.90 mmol/L (0.7-2.0) 07/28/18 03:18 Calcium 8.8 mg/dL (8.4-10.2) 07/31/18 04:07 Magnesium 1.80 mg/dL (1.7-2.3) 07/30/18 03:52 AST 9 units/L (5-40) 07/28/18 12:48 ALT 8 units/L (7-56) 07/28/18 12:48 68 units/L (35-129) 07/28/18 12:48 Amylase 38 units/L (27-131) 07/28/18 12:48 18 units/L (13-60) 07/28/18 12:48 Straw (Yellow) 07/27/18 22:01 Clear (Clear) 07/27/18 22:01 7.0 (5.0-7.0) 07/27/18 22:01 Ur Specific [place] 1.013 (1.003-1.030) 07/27/18 22:01 <15 mg/dl mg/dL (Negative) 07/27/18 22:01 Neg mg/dL (Negative) 07/27/18 22:01 20 mg/dL (Negative) 07/27/18 22:01 Neg (Negative) 07/27/18 22:01 Neg (Negative) 07/27/18 22:01 Neg (Negative) 07/27/18 22:01 < 2.0 mg/dL (<2.0) 07/27/18 22:01 Ur Leukocyte Esterase Neg (Negative) 07/27/18 22:01 2.0 /HPF (0.0-6.0) 07/27/18 22:01 7.0 /HPF (0.0-6.0) 07/27/18 22:01 U Epithel Cells (Auto) < 1.0 /HPF (0-13.0) 07/27/18 22:01 Few /HPF 07/27/18 22:01 Valproic Acid 31.9 ug/mL (50-100) L 07/28/18 12:48 Active Medications - Current Medications Current Medications: Generic Name Dose Route Start Last Admin Trade Name Freq PRN Reason Stop Dose Admin Acetaminophen 650 mg 07/28/18 01:24 Tylenol PO Q4H PRN Pain MILD(1-3)/Fever >100.5/GANNON Amlodipine Besylate 10 mg 07/28/18 10:00 07/31/18 09:50 Norvasc PO 10 mg DAILY JAN Administration Atorvastatin Calcium 20 mg 07/28/18 10:00 07/31/18 09:51 Lipitor PO 20 mg QDAY JAN Administration Dextrose 50 ml 07/28/18 02:29 D50w (25gm) Syringe IV PRN PRN Hypoglycemia Docusate Sodium 100 mg 07/28/18 10:00 07/31/18 22:15 Colace PO 100 mg BID JAN Administration Ferrous Sulfate 325 mg 07/28/18 10:00 07/31/18 22:15 Feosol PO 325 mg BID JAN Administration Fluticasone Propionate 100 mcg 07/28/18 10:00 07/31/18 09:51 Flonase NS 100 mcg QDAY JAN Administration Haloperidol 10 mg 07/28/18 10:00 07/31/18 22:16 Haldol PO 10 mg BID JAN Administration Heparin Sodium (Porcine) 5,000 unit 07/28/18 10:00 07/31/18 22:16 Heparin SUB-Q 5,000 unit Q12HR JAN Administration Hydralazine HCl 10 mg 07/28/18 01:33 07/28/18 04:30 Apresoline IV 10 mg Q4HR PRN Administration Blood Pressure Sodium Chloride 1,000 mls @ 100 mls/hr 07/28/18 02:00 08/01/18 06:29 Nacl 0.9% 1000 Ml IV 100 mls/hr DIRECT JAN Administration Levofloxacin/Dextrose 500 mg in 100 mls @ 100 mls/hr 07/28/18 03:00 08/01/18 03:12 Levaquin 500mg/100ml IV 100 mls/hr Q24H JAN Administration Protocol Insulin Human Lispro 0 unit 07/28/18 07:30 07/31/18 22:16 Humalog SUB-Q Not Given ACHS JAN Protocol Levetiracetam 1,000 mg 07/28/18 10:00 07/31/18 22:16 Keppra PO 1,000 mg BID JAN Administration Levothyroxine Sodium 50 mcg 07/28/18 06:00 08/01/18 06:26 Synthroid PO 50 mcg QAM@0600 JAN Administration Metoprolol Tartrate 50 mg 07/28/18 10:00 07/31/18 22:15 Lopressor PO 50 mg BID JAN Administration Miscellaneous Medication 290 mcg 07/28/18 09:11 Linaclotide (Nf) PO QDAY PRN IBS Ondansetron HCl 4 mg 07/28/18 01:24 07/28/18 10:14 Zofran IV 4 mg Q8H PRN Administration Nausea And Vomiting Quetiapine Fumarate 50 mg 07/29/18 10:00 07/31/18 09:50 Seroquel PO 50 mg DAILY JAN Administration Sodium Chloride 10 ml 07/28/18 10:00 07/31/18 22:17 Sodium Chloride Flush Syringe 10 Ml IV 10 ml BID JAN Administration Sodium Chloride 10 ml 07/28/18 01:24 Sodium Chloride Flush Syringe 10 Ml IV PRN PRN LINE FLUSH Nutrition/Malnutrition Assess - Dietary Evaluation Nutrition/Malnutrition Findings: Nutrition Notes Start: 07/28/18 17:16 Freq: Status: Active Protocol: Document 07/31/18 16:08 RM (Rec: 07/31/18 16:14 RM [id number]) Nutrition Notes Initial or Follow up Reassessment Current Diagnosis Diabetes,Hypertension Other Pertinent Diagnosis Seizure, Schizophrenia, Acute metabolic encephalopathy, Mild retardation Current Diet Cardiac/Consisent CHO Labs/Tests Reviewed Pertinent Medications Reviewed Height 5 ft 7 in Weight 86.183 kg [place] Body Weight (kg) 61.36 BMI 29.7 Subjective/Other Information Pt unable to communicate at time of visit. Noted lunch at bedside w/most eaten and unopened Glucerna. Per tech pt ate most of breakfast. Percent of energy/protein needs met: 85%/73% Burn Absent Trauma Absent #1 Nutrition Diagnosis Inadequate oral intake As Evidenced by Signs and Symptoms pt meeting 85% of calorie and 73% of protein needs Diagnosis Progress(for reassessment Resolved documentation) Is patient on ventilator? No Is Patient Ambulatory and/or Out of Bed No REE-([facility]-confined to bed) 3662.942 Calculation Used for Recommendations [facility] Additional Notes Protein Needs: 86-103g (1-1.2g /kg) Fluid Needs: 1 ml/kcal Nutrition Intervention Change Diet Order: Continue current Add Supplement/Snack (indicate name/kcal D/C Glucerna /protein ) Goal #1 Continue to meet at least 75% of calorie and protein needs via PO and ONS intakes Anticipated Discharge Needs: Consisent CHO diet Revisit per MD consult or patient Sign Off request:
[2018-08-01] MEDS: HumaLOG SUB-Q SCH ×4 (07:58→22:00)
--- NOTE | 2018-08-01 09:34 | Progress Note ---
Subjective - Reason for Consult Consult date: 08/01/18 Reason for consult: Psychiatry Follow-up - Chief Complaint Chief complaint: "The patient refuse to cooperate" 63-year-old white female who presented to the ER with generalized weakness. Today the patient refused to cooperate during the assessment. Per my observation, the patient ate 100% of her breakfast today. No gestures of SI/HI's, Mental Status Exam - Vital signs Last Vital Signs Temp 97.7 F 08/01/18 07:17 Pulse 64 08/01/18 07:17 Resp 18 08/01/18 07:17 BP 155/59 08/01/18 07:17 Pulse Ox 95 08/01/18 07:17 - Exam Narrative exam: Unable to complete the MSE because the patient refused to cooperate. Assessment and Plan Impression: Hx of Schizophrenia per collateral information. Today the patient refused to cooperate during the assessment. CT of head ordered by the hospitalist. Medical: Acute Metabolic Encephalopathy per the hospitalist Recommendation/Plan: Continue Haldol 10 mg PO BID for Schizophrenia. Reassess the patient in 24 hours. . . Dispo: The patient can follow up with Dr Hermosillo for outpatient psy service once discharged. Will staff with Dr Dione Campbell.
[2018-08-01] MEDS: COLACE PO SCH ×2 (10:14→22:00)
[2018-08-01] MEDS: NORVASC PO SCH (10:14)
[2018-08-01] MEDS: FEOSOL PO SCH ×2 (10:14→22:00)
[2018-08-01] MEDS: HALDOL PO SCH ×2 (10:15→22:00)
[2018-08-01] MEDS: FLONASE NS SCH (10:15)
[2018-08-01] MEDS: SODIUM CHLORIDE FLUSH SYRINGE 10 ML IV SCH (10:15)
[2018-08-01] MEDS: HEPARIN SUB-Q SCH ×2 (10:16→22:00)
[2018-08-01] MEDS: KEPPRA PO SCH ×2 (10:22→22:00)
[2018-08-01] MEDS: LOPRESSOR PO SCH ×2 (10:22→22:00)
--- NOTE | 2018-08-01 15:11 | Cat Scan Report ---
CT HEAD WITHOUT CONTRAST: HISTORY: Altered mental status. TECHNIQUE: Sequential 2.5mm CT images. COMPARISON: 07/25/18. FINDINGS: Cerebral Parenchyma: Mild volume loss and chronic white matter changes are identified. There is a large area of cortical encephalomalacia throughout the lateral right cerebral hemisphere involving the right frontal, right parietal and right temporal lobes which is also unchanged. The remaining brain parenchyma demonstrates normal attenuation. Cerebellum: Within normal limits. Brainstem: Within normal limits. Ventricles: Normal. Sella: Normal. Extra-axial spaces: Normal. Basal Cisterns: Normal. Intracranial Hemorrhage: None. Midline Shift: None. Calvarium: Right craniotomy changes are noted, correlate with surgical history. Sinuses: Normal. Mastoid Air Cells: Normal. Visualized Orbits: Normal. IMPRESSION: No acute intracranial process. Volume loss and chronic white matter changes. Cortical encephalomalacia throughout the right cerebral hemisphere which is probably related to previous surgery.
[2018-08-02] MEDS: SODIUM CHLORIDE FLUSH SYRINGE 10 ML IV SCH ×2 (02:40→09:25)
[2018-08-02] MEDS: LEVAQUIN 500MG/100ML 500 MG/100 ML BAG IV SCH (02:41)
[2018-08-02] MEDS: NACL 0.9% 1000 ML 1,000 ML IV SCH (02:42)
[2018-08-02] MEDS: SYNTHROID PO SCH (06:08)
[2018-08-02] MEDS: APRESOLINE IV PRN (06:09)
[2018-08-02] MEDS: HumaLOG SUB-Q SCH ×3 (08:25→18:01)
--- NOTE | 2018-08-02 09:05 | Discharge Summary ---
Providers - Providers Date of Admission: 07/28/18 01:24 Attending physician: HUMAIRA TROY MD 07/28/18 02:30 Consult to Dietitian/Nutrition [CONS] Routine Physician Instructions: Reason For Exam: Reason for Consult: Diet education 07/28/18 09:14 psychiatry consult [Consult to Mental Health] [CONS] Routine Reason For Exam: schizophrenia/multiple psych meds/med review Place consult to:: applications systems engineer Notified:: yes Was contact made?: Yes If yes, spoke with:: carlota Time called:: 09:30 Comment:: holli 07/29/18 05:13 Occupational Therapy Evaluate and Treat [CONS] Routine Comment: Reason For Exam: per geriatric assessment protocol 07/31/18 09:19 Physical Therapy Evaluation and Treat [CONS] Routine Comment: Reason For Exam: Weakness [facility] Reason for admission: AMS Condition: Stable Hospital course: 63-year-old female with history of mild developmentally delayed, seizure, hypertension, diabetes, schizophrenia presents [facility] ED with complaints of altered mental status and generalized weakness. Of note patient was seen in ED on 07/25/18 for complaints of generalized weakness and hyponatremia. She received IVF and was discharged. Also, patient was recently admitted to [facility] and treated for similar complaints as well. Pt is non-verbal and history is provided by caregiver and review of medical records. At baseline pt is able to ambulate without difficulty, and has slurred speech . For the past 2 days she has gotten weak and is unable to ambulate. According to caregiver pt experiences generalized tremors when her sodium is low or if she has a UTI. It is not clear whether or not pt has experienced any tremors in the past 2 days. Seroquel was discontineud on admission to avoid the use of two antipsychotics. per current personal halfway, patient exceeds the level of care they can provide. CM/HARP MAKER working on placement. --Acute metabolic encephalopathy; probably due to underlying psych disease process Supportive care, symptoms improved. CT head did not show any acute process. showed Volume loss and chronic white matter changes. Cortical encephalomalacia throughout the right cerebral hemisphere which is probably related to previous surgery. --Hypertensive urgency; present on admission/pressures now controlled The patient was restarted on antihypertensives with good improvement --Hyponatremia; closely monitor electrolytes, replacement therapy if needed Patient takes sodium chloride tablets at home, 2 more days of treatment completed --History of schizophrenia; on medications, medications adjusted As per the information given by the caregiver, psych evaluation NOTED, NO CHANGE IN MANAGEMENT RECOMMENDED Continue Haldol 10mg po bid --Leukocytosis/ No evidence of UTI --h/o hypothyroidism; continue Synthroid Disposition: [id number] HOME UNDER HOME [facility] Time spent for discharge: 35 MINS Core Measure Documentation - Palliative Care Palliative Care/ Comfort Measures: Not Applicable - Core Measures Any of the following diagnoses?: none Exam - Physical Exam Narrative exam: General appearance: Present: no acute distress, awake, well-nourished, FED HER SELF THIS AM - EENT Eyes: Present: PERRL, EOM intact, - Neck Neck: Present: supple, normal ROM - Respiratory Respiratory effort: normal Respiratory: bilateral: diminished, negative: rales, rhonchi, wheezing - Cardiovascular Rhythm: regular Heart Sounds: Present: S1 & S2 - Extremities Extremities: no ischemia, No edema - Abdominal General gastrointestinal: soft, non-tender, non-distended, normal bowel sounds - Integumentary Integumentary: Present: clear, warm - Psychiatric Psychiatric: communicative, answers some simple questions - Neurologic Neurologic: moves all extremities - Constitutional Vitals: Temp Pulse Resp BP Pulse Ox 97.5 F L 67 18 155/70 97 08/02/18 07:00 08/02/18 07:00 08/02/18 07:00 08/02/18 07:00 08/02/18 07:00 Plan Activity: advance as tolerated, fall precautions Diet: low fat Special Instructions: record daily BP diary, physical therapy, occupational therapy Additional Instructions: follow with Dr Treviño Follow up with: DODIE GIL [Registered Nurse] - 7 Days BLUEBELL EDELMIRA COATES MD [Primary Care Provider] - 3-5 Days Prescriptions: Haloperidol 10 mg PO BID #60 tablet levETIRAcetam [Keppra TAB] 1,000 mg PO BID #60 tablet Linaclotide (Nf) [Linzess (Nf)] 290 mcg PO QDAY PRN #30 capsule PRN Reason: IBS Metoprolol [Lopressor TAB] 50 mg PO BID #60 tablet amLODIPine [Norvasc] 10 mg PO DAILY #30 tablet Sodium Chloride 1 gm PO BID #10 tablet Levothyroxine [Synthroid] 50 mcg PO QAM #30 tablet
[2018-08-02] MEDS ORDERED: CLOTRIMAZOLE/BETAMETHASONE TP PRN (09:12)
[2018-08-02] MEDS: FLONASE NS SCH (09:22)
[2018-08-02] MEDS: NORVASC PO SCH (09:23)
[2018-08-02] MEDS: COLACE PO SCH (09:23)
[2018-08-02] MEDS: KEPPRA PO SCH (09:23)
[2018-08-02] MEDS: LOPRESSOR PO SCH (09:23)
[2018-08-02] MEDS: HALDOL PO SCH (09:24)
[2018-08-02] MEDS: HEPARIN SUB-Q SCH (09:24)
[2018-08-02] MEDS: FEOSOL PO SCH (09:24)
[2018-08-02] MEDS ORDERED: MYCOSTATIN TP SCH (10:00)
[2018-08-02] MEDS ORDERED: PALIPERIDONE 1.5 MG PO SCH (10:00)
[2018-08-02] MEDS ORDERED: AZELASTINE HCL INHALATION SCH (10:00)
[2018-08-02 14:49] VITALS: BP 150/68
--- NOTE | 2018-08-02 18:07 | Progress Note ---
Subjective - Reason for Consult Reason for consult: psych consult - Chief Complaint Chief complaint: 63 year old BF with history of schizophrenia and possible low intellectual functioning presents with altered mental status. She continues to present with poor interaction. She was mumbling all responses to my questions. Wasn't showing active gestures of any harm. No responding to internal stimuli. Mental Status Exam - Vital signs Last Vital Signs Temp 98.0 F 08/02/18 14:48 Pulse 65 08/02/18 14:48 Resp 16 08/02/18 14:48 BP 150/68 08/02/18 14:48 Pulse Ox 95 08/02/18 14:48 - Exam Orientation: person Affect: other (constricted) Mood: other (no answer) Thought Process: Thought Blocking Perceptions: none Speech: other (mumbling) Concentration: distractible, unable to pay attention Motor activity: lethargic Level of consciousness: confused Memory: Recent Impaired, Remote Impaired Mini mental status exam(if necessary): 0-17 Assessment and Plan Assessment and Plan Impression: Hx of Schizophrenia No change in patient's presentation. Medical: Acute Metabolic Encephalopathy per the hospitalist Recommendation/Plan: will provide supportive treatment from a psychiatric standpoint. No active changes in management warranted.
== END 2018-08-02 19:00 | disposition home health service (06) | DRG 640 ==
LOC: EEVIPCON 15:59 → ED 15:59 → 2B-ACE 07-28 01:24
PROVIDERS: ADMIT Internal Medicine; ATTEND Internal Medicine
DX: E87.1 Hypo-osmolality and hyponatremia (principal); G93.41 Metabolic encephalopathy; R65.10 Systemic inflammatory response syndrome (SIRS) of non-infectious origin without acute organ dysfunction; F20.0 Paranoid schizophrenia; I16.0 Hypertensive urgency; G93.89 Other specified disorders of brain; R56.9 Unspecified convulsions; E03.9 Hypothyroidism, unspecified; I10 Essential (primary) hypertension; E11.9 Type 2 diabetes mellitus without complications; R62.7 Adult failure to thrive; Z79.82 Long term (current) use of aspirin
CPT/HCPCS: 36415; 70450; 71045; 72170; 72192; 80048; 80053; 80164; 80320; 81001; 82140; 82150; 82550; 82962; 83036; 83690; 83735; 84075; 84295; 84443; 84450; 84460; 84484; 85025; 85610; 85670; 85730; 87040; 87116; 93005; 93010; G0378; A9270-GY; G0480; J0360; J1644; J1815; J1956; J2405; J7030; J7050

== ENCOUNTER 2018-12-05 10:46 | Emergency (ER) | payer MEDICARE ==
[2018-12-05] MEDS ORDERED: NACL 0.9% 1000 ML 1,000 ML IV ONE (11:10)
--- NOTE | 2018-12-05 11:16 | Emergency Department Report ---
ED Altered Mental Status HPI - General Chief Complaint: Altered Mental Status Stated Complaint: AMS Time Seen by Provider: 12/05/18 11:10 Source: EMS Mode of arrival: Stretcher Limitations: Altered Mental Status - History of Present Illness Initial Comments: Patient is 63 years old female with history of mental retarded patient, seizure, diabetes and hypertension and schizophrenia. Patient presented to the ER via EMS accompanied by her caregiver. Patient brought to the emergency room for evaluation of decreased responsiveness. Caregiver he stated that patient is not in her usual state with decreased responsiveness. Upon arrival to the ER I exa mined the patient. Patient obtunded but respond well to voice command and she follow commands very well. Patient moving all her extremities no evidence of stroke. Patient denied any complaint at this moment. MD Complaint: altered mental status, decreased responsiveness -: unknown - Related Data Home Medications Medication Instructions Recorded Confirmed Last Taken Atorvastatin (Nf) [Lipitor (Nf)] 20 mg PO QHS 12/08/17 07/28/18 07/26/18 20:00 Azelastine 0.1% (Nf) [Astelin (Nf)] 2 spray INHALATION BID 12/08/17 07/28/18 07/27/18 08:00 Docusate Sodium [Stool Softener] 100 mg PO BID 12/08/17 07/28/18 07/27/18 08:00 Ferrous Sulfate 325 mg PO BID 12/08/17 07/28/18 07/27/18 08:00 Fluticasone [Flonase] 2 spray NS QDAY 12/08/17 07/28/18 07/27/18 08:00 Loratadine [Claritin] 10 mg PO DAILY 12/08/17 07/28/18 07/27/18 08:00 Ondansetron [Zofran TAB] 4 mg PO Q8HR PRN 12/08/17 07/28/18 Unknown Paliperidone [Paliperidone ER] 1.5 mg PO DAILY 12/08/17 07/28/18 07/24/18 08:00 Potassium Chloride [Klor-Con 10 meq PO DAILY 12/08/17 07/28/18 07/27/18 08:00 Sprinkle] Aspirin [Aspirin BABY CHEW TAB] 81 mg PO QDAY 05/02/18 07/28/18 05/01/18 08:00 Clotrimazole/Betamethasone Dip 1 applicatio TP BID PRN 05/02/18 07/28/18 Unknown [Lotrisone Cream] Meloxicam 15 mg PO DAILY 05/02/18 07/28/18 07/27/18 08:00 Nystatin Cream [Mycostatin Cream] 1 applicatio TP BID 05/02/18 07/28/18 07/27/18 08:00 Previous Rx's Medication Instructions Recorded Last Taken Type Haloperidol 10 mg PO BID #60 tablet 08/02/18 Unknown Rx Levothyroxine [Synthroid] 50 mcg PO QAM #30 tablet 08/02/18 Unknown Rx Linaclotide (Nf) [Linzess (Nf)] 290 mcg PO QDAY PRN #30 capsule 08/02/18 Unknown Rx Metoprolol [Lopressor TAB] 50 mg PO BID #60 tablet 08/02/18 Unknown Rx Sodium Chloride 1 gm PO BID #10 tablet 08/02/18 Unknown Rx amLODIPine [Norvasc] 10 mg PO DAILY #30 tablet 08/02/18 Unknown Rx levETIRAcetam [Keppra TAB] 1,000 mg PO BID #60 tablet 08/02/18 Unknown Rx Allergies Allergy/AdvReac Type Severity Reaction Status Date / Time erythromycin base Allergy Rash Verified 12/08/17 13:56 [From E-Mycin] nitrofurantoin Allergy MUSCLE Verified 12/08/17 13:57 [From Macrobid] WEAKNESS,DECREASED MOBILITY vancomycin Allergy Rash Verified 12/08/17 13:56 amoxicillin AdvReac Vomiting Verified 05/01/18 19:09 ED Review of Systems ROS: Stated complaint: AMS Other details as noted in HPI Comment: All other systems reviewed and negative Constitutional: denies: chills, fever Respiratory: denies: cough, shortness of breath, SOB with exertion, SOB at rest Cardiovascular: denies: chest pain, palpitations Gastrointestinal: denies: abdominal pain, nausea, vomiting Neurological: denies: headache, weakness, numbness, paresthesias, confusion, abnormal gait ED Past Medical Hx - Past Medical History Hx Hypertension: Yes Hx Congestive Heart Failure: No Hx Diabetes: Yes Hx Seizures: Yes Hx Psychiatric Treatment: Yes (depression) Hx Asthma: No Hx COPD: No Hx HIV: No Additional medical history: Scizophrenia, mild mental retardation - Surgical History Additional Surgical History: subdural hematoma drained, right knee surgery, right eye cataract, fracture left arm - Social History Smoking Status: Never Smoker Substance Use Type: None - Medications Home Medications: Home Medications Medication Instructions Recorded Confirmed Last Taken Type Atorvastatin (Nf) [Lipitor (Nf)] 20 mg PO QHS 12/08/17 07/28/18 07/26/18 20:00 History Azelastine 0.1% (Nf) [Astelin (Nf)] 2 spray INHALATION BID 12/08/17 07/28/18 07/27/18 08:00 History Docusate Sodium [Stool Softener] 100 mg PO BID 12/08/17 07/28/18 07/27/18 08:00 History Ferrous Sulfate 325 mg PO BID 12/08/17 07/28/18 07/27/18 08:00 History Fluticasone [Flonase] 2 spray NS QDAY 12/08/17 07/28/18 07/27/18 08:00 History Loratadine [Claritin] 10 mg PO DAILY 12/08/17 07/28/18 07/27/18 08:00 History Ondansetron [Zofran TAB] 4 mg PO Q8HR PRN 12/08/17 07/28/18 Unknown History Paliperidone [Paliperidone ER] 1.5 mg PO DAILY 12/08/17 07/28/18 07/24/18 08:00 History Potassium Chloride [Klor-Con 10 meq PO DAILY 12/08/17 07/28/18 07/27/18 08:00 History Sprinkle] Aspirin [Aspirin BABY CHEW TAB] 81 mg PO QDAY 05/02/18 07/28/18 05/01/18 08:00 History Clotrimazole/Betamethasone Dip 1 applicatio TP BID PRN 05/02/18 07/28/18 Unknown History [Lotrisone Cream] Meloxicam 15 mg PO DAILY 05/02/18 07/28/18 07/27/18 08:00 History Nystatin Cream [Mycostatin Cream] 1 applicatio TP BID 05/02/18 07/28/18 07/27/18 08:00 History Haloperidol 10 mg PO BID #60 tablet 08/02/18 Unknown Rx Levothyroxine [Synthroid] 50 mcg PO QAM #30 tablet 08/02/18 Unknown Rx Linaclotide (Nf) [Linzess (Nf)] 290 mcg PO QDAY PRN #30 capsule 08/02/18 Unknown Rx Metoprolol [Lopressor TAB] 50 mg PO BID #60 tablet 08/02/18 Unknown Rx Sodium Chloride 1 gm PO BID #10 tablet 08/02/18 Unknown Rx amLODIPine [Norvasc] 10 mg PO DAILY #30 tablet 08/02/18 Unknown Rx levETIRAcetam [Keppra TAB] 1,000 mg PO BID #60 tablet 08/02/18 Unknown Rx ED Physical Exam - General Limitations: Altered Mental Status General appearance: alert, in no apparent distress - Head Head exam: Present: atraumatic, normocephalic, normal inspection - Eye Eye exam: Present: normal appearance, PERRL - ENT ENT exam: Present: normal exam, normal orophraynx, mucous membranes moist - Neck Neck exam: Present: normal inspection, full ROM. Absent: tenderness, meningismus, lymphadenopathy, thyromegaly - Respiratory Respiratory exam: Present: normal lung sounds bilaterally - Cardiovascular Cardiovascular Exam: Present: regular rate, normal rhythm, normal heart sounds - GI/Abdominal GI/Abdominal exam: Present: soft, normal bowel sounds. Absent: distended, tenderness, guarding, rebound, rigid - Extremities Exam Extremities exam: Present: normal inspection, full ROM, normal capillary refill. Absent: tenderness, pedal edema, joint swelling, calf tenderness - Back Exam Back exam: Present: normal inspection, full ROM. Absent: CVA tenderness (R), CVA tenderness (L) - Neurological Exam Neurological exam: Present: altered - Skin Skin exam: Present: warm, intact, normal color ED Course Vital Signs 12/05/18 12/05/18 12/05/18 11:06 11:10 12:20 Temperature 98.1 F Pulse Rate 63 85 Respiratory 20 18 Rate Blood Pressure 104/48 O2 Sat by Pulse 93 98 Oximetry - Lab Data Result diagrams: 12/05/18 13:59 12/05/18 13:59 Lab Results 12/05/18 12/05/18 12/05/18 Range/Units 13:04 13:04 13:59 WBC 15.8 H (4.5-11.0) K/mm3 RBC 3.96 (3.65-5.03) M/mm3 Hgb 12.0 (10.1-14.3) gm/dl Hct 34.9 (30.3-42.9) % MCV 88 (79-97) fl MCH 30 (28-32) pg MCHC 34 (30-34) % RDW 13.7 (13.2-15.2) % Plt Count 139 L (140-440) K/mm3 PT (12.2-14.9) Sec. INR (0.87-1.13) APTT (24.2-36.6) Sec. Sodium (137-145) mmol/L Chloride (98-107) mmol/L Carbon Dioxide (22-30) mmol/L BUN (7-17) mg/dL Creatinine (0.7-1.2) mg/dL Estimated GFR ml/min BUN/Creatinine Ratio % Glucose (65-100) mg/dL Lactic Acid (0.7-2.0) mmol/L Calcium (8.4-10.2) mg/dL Total Bilirubin (0.1-1.2) mg/dL Alkaline Phosphatase (35-129) units/L Ammonia (25-60) umol/L Troponin T (0.00-0.029) ng/mL Total Protein (6.3-8.2) g/dL Albumin (3.9-5) g/dL Albumin/Globulin Ratio % Urine Color Yellow (Yellow) Urine Turbidity Clear (Clear) Urine pH 7.0 (5.0-7.0) Ur Specific [place] 1.013 (1.003-1.030) Urine Protein <15 mg/dl (Negative) mg/dL Urine Glucose (UA) Neg (Negative) mg/dL Urine Ketones Tr (Negative) mg/dL Urine Blood Neg (Negative) Urine Nitrite Neg (Negative) Urine Bilirubin Neg (Negative) Urine Urobilinogen < 2.0 (<2.0) mg/dL Ur Leukocyte Esterase Neg (Negative) Urine WBC (Auto) 1.0 (0.0-6.0) /HPF Urine RBC (Auto) 2.0 (0.0-6.0) /HPF Urine Mucus Few /HPF Salicylates (2.8-20.0) mg/dL Urine Opiates Screen Presumptive negative Urine Methadone Screen Presumptive negative Acetaminophen (10.0-30.0) ug/mL Ur Barbiturates Screen Presumptive negative Ur Phencyclidine Scrn Presumptive negative Ur Amphetamines Screen Presumptive negative U Benzodiazepines Scrn Presumptive negative Urine Cocaine Screen Presumptive negative U Marijuana (THC) Screen Presumptive negative Drugs of Abuse Note Disclamer Plasma/Serum Alcohol (0-0.07) % 12/05/18 12/05/18 12/05/18 Range/Units 13:59 13:59 13:59 WBC (4.5-11.0) K/mm3 RBC (3.65-5.03) M/mm3 Hgb (10.1-14.3) gm/dl Hct (30.3-42.9) % MCV (79-97) fl MCH (28-32) pg MCHC (30-34) % RDW (13.2-15.2) % Plt Count (140-440) K/mm3 PT 10.7 L (12.2-14.9) Sec. INR 0.79 L (0.87-1.13) APTT 25.2 (24.2-36.6) Sec. Sodium 133 L (137-145) mmol/L Chloride 99.3 (98-107) mmol/L Carbon Dioxide 20 L (22-30) mmol/L BUN 11 (7-17) mg/dL Creatinine 0.4 L (0.7-1.2) mg/dL Estimated GFR > 60 ml/min BUN/Creatinine Ratio 28 % Glucose 105 H (65-100) mg/dL Lactic Acid 1.00 (0.7-2.0) mmol/L Calcium 9.0 (8.4-10.2) mg/dL Total Bilirubin 0.20 (0.1-1.2) mg/dL Alkaline Phosphatase 68 (35-129) units/L Ammonia (25-60) umol/L Troponin T < 0.010 (0.00-0.029) ng/mL Total Protein 7.4 (6.3-8.2) g/dL Albumin 3.5 L (3.9-5) g/dL Albumin/Globulin Ratio 0.9 % Urine Color (Yellow) Urine Turbidity (Clear) Urine pH (5.0-7.0) Ur Specific [place] (1.003-1.030) Urine Protein (Negative) mg/dL Urine Glucose (UA) (Negative) mg/dL Urine Ketones (Negative) mg/dL Urine Blood (Negative) Urine Nitrite (Negative) Urine Bilirubin (Negative) Urine Urobilinogen (<2.0) mg/dL Ur Leukocyte Esterase (Negative) Urine WBC (Auto) (0.0-6.0) /HPF Urine RBC (Auto) (0.0-6.0) /HPF Urine Mucus /HPF Salicylates (2.8-20.0) mg/dL Urine Opiates Screen Urine Methadone Screen Acetaminophen (10.0-30.0) ug/mL Ur Barbiturates Screen Ur Phencyclidine Scrn Ur Amphetamines Screen U Benzodiazepines Scrn Urine Cocaine Screen U Marijuana (THC) Screen Drugs of Abuse Note Plasma/Serum Alcohol (0-0.07) % 12/05/18 12/05/18 12/05/18 Range/Units 13:59 13:59 13:59 WBC (4.5-11.0) K/mm3 RBC (3.65-5.03) M/mm3 Hgb (10.1-14.3) gm/dl Hct (30.3-42.9) % MCV (79-97) fl MCH (28-32) pg MCHC (30-34) % RDW (13.2-15.2) % Plt Count (140-440) K/mm3 PT (12.2-14.9) Sec. INR (0.87-1.13) APTT (24.2-36.6) Sec. Sodium (137-145) mmol/L Chloride (98-107) mmol/L Carbon Dioxide (22-30) mmol/L BUN (7-17) mg/dL Creatinine (0.7-1.2) mg/dL Estimated GFR ml/min BUN/Creatinine Ratio % Glucose (65-100) mg/dL Lactic Acid (0.7-2.0) mmol/L Calcium (8.4-10.2) mg/dL Total Bilirubin (0.1-1.2) mg/dL Alkaline Phosphatase (35-129) units/L Ammonia 51.0 (25-60) umol/L Troponin T (0.00-0.029) ng/mL Total Protein (6.3-8.2) g/dL Albumin (3.9-5) g/dL Albumin/Globulin Ratio % Urine Color (Yellow) Urine Turbidity (Clear) Urine pH (5.0-7.0) Ur Specific [place] (1.003-1.030) Urine Protein (Negative) mg/dL Urine Glucose (UA) (Negative) mg/dL Urine Ketones (Negative) mg/dL Urine Blood (Negative) Urine Nitrite (Negative) Urine Bilirubin (Negative) Urine Urobilinogen (<2.0) mg/dL Ur Leukocyte Esterase (Negative) Urine WBC (Auto) (0.0-6.0) /HPF Urine RBC (Auto) (0.0-6.0) /HPF Urine Mucus /HPF Salicylates < 0.3 L (2.8-20.0) mg/dL Urine Opiates Screen Urine Methadone Screen Acetaminophen < 5.0 L (10.0-30.0) ug/mL Ur Barbiturates Screen Ur Phencyclidine Scrn Ur Amphetamines Screen U Benzodiazepines Scrn Urine Cocaine Screen U Marijuana (THC) Screen Drugs of Abuse Note Plasma/Serum Alcohol (0-0.07) % 12/05/18 Range/Units 13:59 WBC (4.5-11.0) K/mm3 RBC (3.65-5.03) M/mm3 Hgb (10.1-14.3) gm/dl Hct (30.3-42.9) % MCV (79-97) fl MCH (28-32) pg MCHC (30-34) % RDW (13.2-15.2) % Plt Count (140-440) K/mm3 PT (12.2-14.9) Sec. INR (0.87-1.13) APTT (24.2-36.6) Sec. Sodium (137-145) mmol/L Chloride (98-107) mmol/L Carbon Dioxide (22-30) mmol/L BUN (7-17) mg/dL Creatinine (0.7-1.2) mg/dL Estimated GFR ml/min BUN/Creatinine Ratio % Glucose (65-100) mg/dL Lactic Acid (0.7-2.0) mmol/L Calcium (8.4-10.2) mg/dL Total Bilirubin (0.1-1.2) mg/dL Alkaline Phosphatase (35-129) units/L Ammonia (25-60) umol/L Troponin T (0.00-0.029) ng/mL Total Protein (6.3-8.2) g/dL Albumin (3.9-5) g/dL Albumin/Globulin Ratio % Urine Color (Yellow) Urine Turbidity (Clear) Urine pH (5.0-7.0) Ur Specific [place] (1.003-1.030) Urine Protein (Negative) mg/dL Urine Glucose (UA) (Negative) mg/dL Urine Ketones (Negative) mg/dL Urine Blood (Negative) Urine Nitrite (Negative) Urine Bilirubin (Negative) Urine Urobilinogen (<2.0) mg/dL Ur Leukocyte Esterase (Negative) Urine WBC (Auto) (0.0-6.0) /HPF Urine RBC (Auto) (0.0-6.0) /HPF Urine Mucus /HPF Salicylates (2.8-20.0) mg/dL Urine Opiates Screen Urine Methadone Screen Acetaminophen (10.0-30.0) ug/mL Ur Barbiturates Screen Ur Phencyclidine Scrn Ur Amphetamines Screen U Benzodiazepines Scrn Urine Cocaine Screen U Marijuana (THC) Screen Drugs of Abuse Note Plasma/Serum Alcohol < 0.01 (0-0.07) % - Medical Decision Making Patient is 63 years old female with history of mental retarded patient, seizure, diabetes and hypertension and schizophrenia. Patient presented to the ER via EMS accompanied by her caregiver. Patient brought to the emergency room for evaluation of decreased responsiveness. Caregiver he stated that patient is not in her usual state with decreased responsiveness. Upon arrival to the ER I examined the patient. Patient obtunded but respond well to voice command and she follow commands very well. Patient moving all her extremities no evidence of stroke. Patient denied any complaint at this moment. Patient labs reviewed and is unremarkable except for slightly elevated blood loss cells which is chronic for the patient and reviewing her labs from previous. Patient also had history of seizure and that might be the cause for her elevated white blood cells. A CT brain is negative for acute finding. Chest x-ray is unremarkable. Urine is negative for UTI. Patient is back to her baseline according to the caregiver. Patient is alert and responding to command a well. She ate a meal was no difficulty. Caregiver advised to take patient to primary care physician in the next 2-3 days and to attend to the ER if she develop any new symptoms. Critical care attestation.: If time is entered above; I have spent that time in minutes in the direct care of this critically ill patient, excluding procedure time. ED Disposition Clinical Impression: Altered mental status Disposition: DC-01 TO HOME OR SELFCARE Is pt being admited?: No Condition: Stable Instructions: Altered Mental Status (ED) Referrals: PRIMARY CARE,MD [Primary Care Provider] - 3-5 Days
--- NOTE | 2018-12-05 11:39 | XRay Report ---
CHEST 1 VIEW INDICATION: Altered Mental Status. COMPARISON: 07/27/2018 FINDINGS: Support devices: None. Heart: Stable borderline to mild cardiomegaly. Lungs/Pleura: No acute air space or interstitial disease. Additional findings: Severe chronic deformity of the left humeral head is unchanged. IMPRESSION: Borderline heart size. Lungs clear Signer Name: Luke Alejo Jr, MD Signed: 12/05/2018 11:34 AM Workstation Name: [id number]
--- NOTE | 2018-12-05 12:10 | Cat Scan Report ---
CT head/brain wo con INDICATION / CLINICAL INFORMATION: 63 years Female; Altered Mental Status. TECHNIQUE: Routine CT head without contrast. All CT scans at this location are performed using CT dos e reduction for ALARA by means of automated exposure control. COMPARISON: The study is compared to the previous CT of 08/01/2018. FINDINGS: BRAIN / INTRACRANIAL CONTENTS: There is a persistent right frontotemporal craniotomy defect with exte nsive encephalomalacia involving right cerebral hemisphere. The distribution would be indicative of c hronic right MCA infarct which includes the right ganglia capsular region. There is ex vacuo dilatati on of the right lateral ventricle. There is otherwise mild cerebral white matter disease most consistent with microvascular angiopathy. There is no clear CT evidence of acute intracranial hemorrhage or significant mass effect. There is d evelopmental magna cisterna magna. ORBITS: No significant abnormality of visualized orbits. SINUSES / MASTOIDS: There is mild mucosal thickening along the visualized posterior left maxillary si nus. CRANIOCERVICAL JUNCTION: No significant abnormality. ADDITIONAL FINDINGS: None. IMPRESSION: 1. Status post right frontotemporal craniotomy with continued extensive encephalomalacia involving th e right cerebral hemisphere as described. 2. There is no CT evidence of acute intracranial hemorrhage or significant interval change from 2018. Signer Name: Mervin Glover MD Signed: 12/05/2018 12:05 PM Workstation Name: [id number]
[2018-12-05 13:19] LABS: Bilirubin,Urine NEG (Negative); Blood,Urine NEG (Negative); Color,Urine Yellow (Yellow); Mucus,Urine FEW /HPF; Protein,Urine <15 mg/dL mg/dL (Negative); Urobilinogen,Urine < 2.0 mg/dL (<2.0)
[2018-12-05 14:09] LABS: Amphetamine Screen,Urine PRESUMPTIVE NEGATIVE; Benzodiazepines Screen,Urine PRESUMPTIVE NEGATIVE; Cannabinoid Screen,Urine PRESUMPTIVE NEGATIVE; Cocaine Screen,Urine PRESUMPTIVE NEGATIVE; Methadone Screen,Urine PRESUMPTIVE NEGATIVE; Opiate Screen,Urine PRESUMPTIVE NEGATIVE
[2018-12-05 14:52] LABS: Hematocrit 34.9 % (30.3-42.9); Mean Corpuscular HGB Conc 34 % (30-34); Mean Corpuscular Volume 88 fl (79-97); Platelet Count 139 K/mm3 (140-440); Red Blood Count 3.96 M/mm3 (3.65-5.03); Red Cell Distribution Width 13.7 % (13.2-15.2)
[2018-12-05 15:06] LABS: INR 0.79 (0.87-1.13)
[2018-12-05 15:07] LABS: Partial Thromboplastin Time 25.2 Sec. (24.2-36.6)
[2018-12-05 15:11] LABS: BUN/Creatinine Ratio TNR; Blood Urea Nitrogen TNR mg/dL (7-17)
[2018-12-05 15:12] LABS: Calcium TNR mg/dL (8.4-10.2)
[2018-12-05 15:13] LABS: Albumin TNR g/dL (3.9-5); Hemolysis Index TNR
[2018-12-05 15:14] LABS: Alanine Aminotransferase TNR units/L (7-56); Bilirubin,Direct TNR mg/dL (0-0.2)
[2018-12-05 16:33] VITALS: BP 137/82
[2018-12-05 17:44] LABS: Eosinophils % (Auto) 0.3 % (0.0-4.3); Monocytes % (Auto) 6.3 % (0.0-7.3)
[2018-12-05 17:58] LABS: Basophils % (Manual) 0 % (0.0-1.8); Eosinophils % (Manual) 0 % (0.0-4.3); Total Cells Counted 100
[2018-12-05 17:59] LABS: Platelet Estimate Consistent w Auto; RBC Morphology Normal
== END 2018-12-05 17:45 | disposition home or self-care (01) ==
LOC: ED 10:46
DX: R41.82 Altered mental status, unspecified (principal); I10 Essential (primary) hypertension; E11.9 Type 2 diabetes mellitus without complications; F32.9 Major depressive disorder, single episode, unspecified; F20.9 Schizophrenia, unspecified; Z98.890 Other specified postprocedural states; Z79.899 Other long term (current) drug therapy; Z88.8 Allergy status to other drugs, medicaments and biological substances; Z88.1 Allergy status to other antibiotic agents
CPT/HCPCS: 36415; 70450; 71045; 80053; 80076; 80307; 81001; 82140; 85007; 85025; 85610; 85730; 93005; 93010; 96360; 99285; J7030; 80320; G0480

== ENCOUNTER 2018-12-23 10:32 | Emergency (ER) | payer MEDICARE ==
--- NOTE | 2018-12-23 11:23 | Emergency Department Report ---
ED General Adult HPI - General Chief complaint: Fall Stated complaint: FALL Time Seen by Provider: 12/23/18 11:05 Source: EMS Mode of arrival: Stretcher Limitations: No Limitations - History of Present Illness Initial comments: 63 year old female was found on the floor in her nursing home. She was presumed to have fallen but not witness. She was not found to have any evidence of injury by the staff or any specific painful area or complaint. She has a history of advanced dementia and schizophrenia. She is unable to communicate. -: minutes(s) - Related Data Home Medications Medication Instructions Recorded Confirmed Last Taken Atorvastatin (Nf) [Lipitor (Nf)] 20 mg PO QHS 12/08/17 12/05/18 12/04/18 Docusate Sodium [Stool Softener] 100 mg PO BID 12/08/17 12/05/18 12/04/18 Ferrous Sulfate 325 mg PO BID 12/08/17 12/05/18 12/04/18 Fluticasone [Flonase] 2 spray NS QDAY 12/08/17 12/05/18 12/04/18 Loratadine [Claritin] 10 mg PO DAILY 12/08/17 12/05/18 12/04/18 Ondansetron [Zofran TAB] 4 mg PO Q8HR PRN 12/08/17 12/05/18 12/04/18 Paliperidone [Paliperidone ER] 1.5 mg PO DAILY 12/08/17 12/05/18 12/04/18 Potassium Chloride [Klor-Con 10 meq PO DAILY 12/08/17 12/05/18 12/04/18 Sprinkle] Aspirin [Aspirin BABY CHEW TAB] 81 mg PO QDAY 05/02/18 12/05/18 12/04/18 Clotrimazole/Betamethasone Dip 1 applicatio TP BID PRN 05/02/18 12/05/18 12/04/18 [Lotrisone Cream] Meloxicam 15 mg PO DAILY 05/02/18 12/05/18 12/04/18 Nystatin Cream [Mycostatin Cream] 1 applicatio TP BID 05/02/18 12/05/18 12/04/18 Previous Rx's Medication Instructions Recorded Last Taken Type Haloperidol 10 mg PO BID #60 tablet 08/02/18 12/04/18 Rx Levothyroxine [Synthroid] 50 mcg PO QAM #30 tablet 08/02/18 12/04/18 Rx Linaclotide (Nf) [Linzess (Nf)] 290 mcg PO QDAY PRN #30 capsule 08/02/18 12/04/18 Rx Metoprolol [Lopressor TAB] 50 mg PO BID #60 tablet 08/02/18 12/04/18 Rx amLODIPine 10 mg PO DAILY #30 tablet 08/02/18 12/04/18 Rx levETIRAcetam [Keppra TAB] 1,000 mg PO BID #60 tablet 08/02/18 12/04/18 Rx Allergies Allergy/AdvReac Type Severity Reaction Status Date / Time erythromycin base Allergy Rash Verified 12/08/17 13:56 [From E-Mycin] nitrofurantoin Allergy MUSCLE Verified 12/08/17 13:57 [From Macrobid] WEAKNESS,DECREASED MOBILITY vancomycin Allergy Rash Verified 12/08/17 13:56 amoxicillin AdvReac Vomiting Verified 05/01/18 19:09 ED Review of Systems ROS: Stated complaint: FALL Other details as noted in HPI Comment: Unobtainable due to pts medical conditions ED Past Medical Hx - Past Medical History Hx Hypertension: Yes Hx Congestive Heart Failure: No Hx Diabetes: Yes Hx Seizures: Yes Hx Psychiatric Treatment: Yes (depression) Hx Asthma: No Hx COPD: No Hx HIV: No Additional medical history: Scizophrenia, mild mental retardation - Surgical History Additional Surgical History: subdural hematoma drained, right knee surgery, right eye cataract, fracture left arm - Social History Smoking Status: Never Smoker Substance Use Type: None - Medications Home Medications: Home Medications Medication Instructions Recorded Confirmed Last Taken Type Atorvastatin (Nf) [Lipitor (Nf)] 20 mg PO QHS 12/08/17 12/05/18 12/04/18 History Docusate Sodium [Stool Softener] 100 mg PO BID 12/08/17 12/05/18 12/04/18 History Ferrous Sulfate 325 mg PO BID 12/08/17 12/05/18 12/04/18 History Fluticasone [Flonase] 2 spray NS QDAY 12/08/17 12/05/18 12/04/18 History Loratadine [Claritin] 10 mg PO DAILY 12/08/17 12/05/18 12/04/18 History Ondansetron [Zofran TAB] 4 mg PO Q8HR PRN 12/08/17 12/05/18 12/04/18 History Paliperidone [Paliperidone ER] 1.5 mg PO DAILY 12/08/17 12/05/18 12/04/18 History Potassium Chloride [Klor-Con 10 meq PO DAILY 12/08/17 12/05/18 12/04/18 History Sprinkle] Aspirin [Aspirin BABY CHEW TAB] 81 mg PO QDAY 05/02/18 12/05/18 12/04/18 History Clotrimazole/Betamethasone Dip 1 applicatio TP BID PRN 05/02/18 12/05/18 12/04/18 History [Lotrisone Cream] Meloxicam 15 mg PO DAILY 05/02/18 12/05/18 12/04/18 History Nystatin Cream [Mycostatin Cream] 1 applicatio TP BID 05/02/18 12/05/18 12/04/18 History Haloperidol 10 mg PO BID #60 tablet 08/02/18 12/05/18 12/04/18 Rx Levothyroxine [Synthroid] 50 mcg PO QAM #30 tablet 08/02/18 12/05/18 12/04/18 Rx Linaclotide (Nf) [Linzess (Nf)] 290 mcg PO QDAY PRN #30 capsule 08/02/1812/04/18 Rx Metoprolol [Lopressor TAB] 50 mg PO BID #60 tablet 08/02/18 12/05/18 12/04/18 Rx amLODIPine 10 mg PO DAILY #30 tablet 08/02/18 12/05/18 12/04/18 Rx levETIRAcetam [Keppra TAB] 1,000 mg PO BID #60 tablet 08/02/18 12/04/18 Rx ED Physical Exam - General Limitations: Physical Limitation General appearance: alert, in no apparent distress - Head Head exam: Present: atraumatic, normocephalic, other (palpation of the face and calvarium found no soft tissue swelling or painful area) - Eye Eye exam: Present: normal appearance, PERRL, EOMI - ENT ENT exam: Present: mucous membranes moist - Neck Neck exam: Present: normal inspection, full ROM. Absent: tenderness, meningismus, lymphadenopathy, thyromegaly - Respiratory Respiratory exam: Present: normal lung sounds bilaterally. Absent: respiratory distress - Cardiovascular Cardiovascular Exam: Present: regular rate, normal rhythm. Absent: systolic murmur, diastolic murmur, rubs, gallop - GI/Abdominal GI/Abdominal exam: Present: soft, normal bowel sounds. Absent: distended, tenderness, guarding, rebound, rigid - Extremities Exam Extremities exam: Present: normal inspection, full ROM, normal capillary refill. Absent: tenderness, pedal edema, joint swelling, calf tenderness - Back Exam Back exam: Present: normal inspection. Absent: CVA tenderness (R), CVA tenderness (L), muscle spasm, paraspinal tenderness, vertebral tenderness - Neurological Exam Neurological exam: Present: alert, oriented X3, CN II-XII intact. Absent: motor sensory deficit - Psychiatric Psychiatric exam: Present: normal affect, normal mood - Skin Skin exam: Present: warm, dry, intact, normal color. Absent: rash ED Course Vital Signs 12/23/18 12/23/18 10:40 12:04 Temperature 97.5 F L Pulse Rate 76 68 Respiratory 20 Rate Blood Pressure 187/72 [Left] O2 Sat by Pulse 100 Oximetry - Reevaluation(s) Reevaluation #1: She has had a recent CT showing her old craniotomy and encephalomalacia. I do not think could be any benefit to repeat it at this point 12/23/18 14:08 Reevaluation #2: Platelet count is stable 12/23/18 14:10 ED Medical Decision Making - Lab Data Result diagrams: 12/23/18 13:05 12/23/18 13:05 Critical care attestation.: If time is entered above; I have spent that time in minutes in the direct care of this critically ill patient, excluding procedure time. ED Disposition Clinical Impression: Encephalopathy chronic, Thrombocytopenia Fall Qualifiers: Encounter type: initial encounter Qualified Code(s): W19.XXXA - Unspecified fall, initial encounter Disposition: TO HOME OR SELFCARE Is pt being admited?: No Does the pt Need Aspirin: No Condition: Stable Instructions: Dementia (ED) Additional Instructions: Return any further problem as needed. Referrals: PRIMARY CARE, [Primary Care Provider] - 3-5 Days [facility] [Provider Group] - 2-3 Days Time of Disposition: 14:09
[2018-12-23 13:56] LABS: Alanine Aminotransferase 8 units/L (7-56); BUN/Creatinine Ratio 35; Bilirubin,Direct < 0.2 mg/dL (0-0.2); Blood Urea Nitrogen 14 mg/dL (7-17); Calcium 9.2 mg/dL (8.4-10.2); Hemolysis Index 5
[2018-12-23 14:01] LABS: Basophils % (Auto) 0.3 % (0.0-1.8); Eosinophils # (Auto) 0.1 K/mm3 (0.0-0.4); Eosinophils % (Auto) 1.5 % (0.0-4.3); Hemoglobin 13.4 gm/dl (10.1-14.3); Mean Corpuscular HGB Conc 34 % (30-34); Mean Corpuscular Volume 89 fl (79-97); Monocytes # (Auto) 0.6 K/mm3 (0.0-0.8); Monocytes % (Auto) 6.4 % (0.0-7.3); Platelet Count 139 K/mm3 (140-440); Red Cell Distribution Width 13.9 % (13.2-15.2)
[2018-12-23 14:53] VITALS: BP 149/64
== END 2018-12-23 16:44 | disposition home or self-care (01) ==
LOC: ED 10:32
DX: G93.49 Other encephalopathy (principal); D69.6 Thrombocytopenia, unspecified; I10 Essential (primary) hypertension; F32.9 Major depressive disorder, single episode, unspecified; F20.9 Schizophrenia, unspecified; Z88.1 Allergy status to other antibiotic agents; Z88.5 Allergy status to narcotic agent; Z79.899 Other long term (current) drug therapy; Z79.82 Long term (current) use of aspirin; W01.198A Fall on same level from slipping, tripping and stumbling with subsequent striking against other object, initial encounter; Y93.89 Activity, other specified; Y92.89 Other specified places as the place of occurrence of the external cause; Y99.8 Other external cause status
CPT/HCPCS: 36415; 80048; 80076; 85025; 93005; 93010

== ENCOUNTER 2018-12-26 18:00 | Emergency (ER) | payer MEDICARE ==
[2018-12-26] MEDS ORDERED: levETIRAcetam 500 MG TAB PO ONE (19:04)
[2018-12-26 19:22] LABS: Basophils % (Auto) 0.3 % (0.0-1.8); Eosinophils # (Auto) 0.1 K/mm3 (0.0-0.4); Hematocrit 35.1 % (30.3-42.9); Hemoglobin 11.5 gm/dl (10.1-14.3); Lymphocytes # (Auto) 1.9 K/mm3 (1.2-5.4); Mean Corpuscular HGB Conc 33 % (30-34); Mean Corpuscular Volume 91 fl (79-97); Monocytes # (Auto) 1.2 K/mm3 (0.0-0.8); Monocytes % (Auto) 9.6 % (0.0-7.3); Platelet Count 146 K/mm3 (140-440); Red Blood Count 3.85 M/mm3 (3.65-5.03); Red Cell Distribution Width 14.1 % (13.2-15.2)
[2018-12-26 19:41] LABS: BUN/Creatinine Ratio 33; Blood Urea Nitrogen 20 mg/dL (7-17); Calcium 9.5 mg/dL (8.4-10.2); Hemolysis Index 7
[2018-12-26 20:27] VITALS: BP 134/61
--- NOTE | 2018-12-26 21:10 | Emergency Department Report ---
ED General Adult HPI - General Chief complaint: Altered Mental Status Stated complaint: ABNORMAL POSTURE Time Seen by Provider: 12/26/18 18:53 Source: EMS, old records reviewed Mode of arrival: Stretcher Limitations: Other - History of Present Illness Initial comments: 63-year-old female with a past medical history of schizophrenia and dementia presents to Hospital as caretakers were concerned this patient was leaning to the left as per triage. Patient is not speaking and unable to provide any history of present illness. Caretake the bedside states that this is baseline she can get up on her own a uses a cane for assistance to ambulate. Today she refuses to get up and had to be assisted up by 2 caretakers at the daycare program. [place] Programmer at the bedside suspect that patient just did not want to get up at the time. There is no reports of syncope or seizure. Apparently patient has a history alteration in mental status associated with hyponatremia. At this time patient is at her baseline mental status. She's not had her evening dose o f medications. Patient was here 3 days ago [facility] Patient has been eating and drinking appropriately. No complaints of recent fever or vomiting. - Related Data Home Medications Medication Instructions Recorded Confirmed Last Taken Atorvastatin (Nf) [Lipitor (Nf)] 20 mg PO QHS 12/08/17 12/05/18 12/04/18 Docusate Sodium [Stool Softener] 100 mg PO BID 12/08/17 12/05/18 12/04/18 Ferrous Sulfate 325 mg PO BID 12/08/17 12/05/18 12/04/18 Fluticasone [Flonase] 2 spray NS QDAY 12/08/17 12/05/18 12/04/18 Loratadine [Claritin] 10 mg PO DAILY 12/08/17 12/05/18 12/04/18 Ondansetron [Zofran TAB] 4 mg PO Q8HR PRN 12/08/17 12/05/18 12/04/18 Paliperidone [Paliperidone ER] 1.5 mg PO DAILY 12/08/17 12/05/18 12/04/18 Potassium Chloride [Klor-Con 10 meq PO DAILY 12/08/17 12/05/18 12/04/18 Sprinkle] Aspirin [Aspirin BABY CHEW TAB] 81 mg PO QDAY 05/02/18 12/05/18 12/04/18 Clotrimazole/Betamethasone Dip 1 applicatio TP BID PRN 05/02/18 12/05/18 12/04/18 [Lotrisone Cream] Meloxicam 15 mg PO DAILY 05/02/18 12/05/18 12/04/18 Nystatin Cream [Mycostatin Cream] 1 applicatio TP BID 05/02/18 12/05/18 12/04/18 Previous Rx's Medication Instructions Recorded Last Taken Type Haloperidol 10 mg PO BID #60 tablet 08/02/18 12/04/18 Rx Levothyroxine [Synthroid] 50 mcg PO QAM #30 tablet 08/02/18 12/04/18 Rx Linaclotide (Nf) [Linzess (Nf)] 290 mcg PO QDAY PRN #30 capsule 08/02/18 12/04/18 Rx Metoprolol [Lopressor TAB] 50 mg PO BID #60 tablet 08/02/18 12/04/18 Rx amLODIPine 10 mg PO DAILY #30 tablet 08/02/18 12/04/18 Rx levETIRAcetam [Keppra TAB] 1,000 mg PO BID #60 tablet 08/02/18 12/04/18 Rx Allergies Allergy/AdvReac Type Severity Reaction Status Date / Time erythromycin base Allergy Rash Verified 12/08/17 13:56 [From E-Mycin] nitrofurantoin Allergy MUSCLE Verified 12/08/17 13:57 [From Macrobid] WEAKNESS,DECREASED MOBILITY vancomycin Allergy Rash Verified 12/08/17 13:56 amoxicillin AdvReac Vomiting Verified 05/01/18 19:09 ED Review of Systems ROS: Stated complaint: ABNORMAL POSTURE Other details as noted in HPI Comment: Unobtainable due to pts medical conditions ED Past Medical Hx - Past Medical History Hx Hypertension: Yes Hx Congestive Heart Failure: No Hx Diabetes: Yes Hx Seizures: Yes Hx Psychiatric Treatment: Yes (depression) Hx Asthma: No Hx COPD: No Hx Dementia: Yes Hx HIV: No Additional medical history: Scizophrenia, mild mental retardation - Surgical History Additional Surgical History: subdural hematoma drained, right knee surgery, right eye cataract, fracture left arm - Social History Smoking Status: Never Smoker Substance Use Type: None - Medications Home Medications: Home Medications Medication Instructions Recorded Confirmed Last Taken Type Atorvastatin (Nf) [Lipitor (Nf)] 20 mg PO QHS 12/08/17 12/05/18 12/04/18 History Docusate Sodium [Stool Softener] 100 mg PO BID 12/08/17 12/05/18 12/04/18 History Ferrous Sulfate 325 mg PO BID 12/08/17 12/05/18 12/04/18 History Fluticasone [Flonase] 2 spray NS QDAY 12/08/17 12/05/18 12/04/18 History Loratadine [Claritin] 10 mg PO DAILY 12/08/17 12/05/18 12/04/18 History Ondansetron [Zofran TAB] 4 mg PO Q8HR PRN 12/08/17 12/05/18 12/04/18 History Paliperidone [Paliperidone ER] 1.5 mg PO DAILY 12/08/17 12/05/18 12/04/18 History Potassium Chloride [Klor-Con 10 meq PO DAILY 12/08/17 12/05/18 12/04/18 History Sprinkle] Aspirin [Aspirin BABY CHEW TAB] 81 mg PO QDAY 05/02/18 12/05/18 12/04/18 History Clotrimazole/Betamethasone Dip 1 applicatio TP BID PRN 05/02/18 12/05/18 12/04/18 History [Lotrisone Cream] Meloxicam 15 mg PO DAILY 05/02/18 12/05/18 12/04/18 History Nystatin Cream [Mycostatin Cream] 1 applicatio TP BID 05/02/18 12/05/18 12/04/18 History Haloperidol 10 mg PO BID #60 tablet 08/02/18 12/05/18 12/04/18 Rx Levothyroxine [Synthroid] 50 mcg PO QAM #30 tablet 08/02/18 12/05/18 12/04/18 Rx Linaclotide (Nf) [Linzess (Nf)] 290 mcg PO QDAY PRN #30 capsule 08/02/18 12/05/18 12/04/18 Rx Metoprolol [Lopressor TAB] 50 mg PO BID #60 tablet 08/02/18 12/05/18 12/04/18 Rx amLODIPine 10 mg PO DAILY #30 tablet 08/02/18 12/05/18 12/04/18 Rx levETIRAcetam [Keppra TAB] 1,000 mg PO BID #60 tablet 08/02/18 12/04/18 Rx ED Physical Exam - General Limitations: Other - Other Other exam information: General: No acute distress Head: Atraumatic Eyes: normal appearance ENT: Moist mucous membranes Neck: Normal appearance, no midline tenderness Chest: Clear to auscultation bilaterally CV: Regular rate and rhythm Abdomen: Soft, normal bowel sounds, nontender, nondistended, no rebound or guarding Back: Normal inspection Extremity: Normal inspection infection, full range of motion Neuro: Alert nonverbal, equal hand talent acquisition sourcer, equal foot dorsiflexion, sensation grossly intact Psych: Appropriate behavior Skin: Generalized erythematous rash to torso chronic as per ring sewer ED Course Vital Signs 12/26/18 20:25 Temperature 98.4 F Pulse Rate 81 Respiratory 18 Rate Blood Pressure 134/61 [Left] O2 Sat by Pulse 96 Oximetry ED Medical Decision Making - Lab Data Result diagrams: 12/26/18 19:05 12/26/18 19:05 Lab Results 12/26/18 12/26/18 12/26/18 Range/Units 19:05 19:05 21:30 WBC 12.6 H (4.5-11.0) K/mm3 RBC 3.85 (3.65-5.03) M/mm3 Hgb 11.5 (10.1-14.3) gm/dl Hct 35.1 (30.3-42.9) % MCV 91 (79-97) fl MCH 30 (28-32) pg MCHC 33 (30-34) % RDW 14.1 (13.2-15.2) % Plt Count 146 (140-440) K/mm3 Lymph % (Auto) 15.0 (13.4-35.0) % [place] % (Auto) 9.6 H (0.0-7.3) % Eos % (Auto) 1.0 (0.0-4.3) % Baso % (Auto) 0.3 (0.0-1.8) % Lymph # 1.9 (1.2-5.4) K/mm3 Collin # 1.2 H (0.0-0.8) K/mm3 Eos # 0.1 (0.0-0.4) K/mm3 Baso # 0.0 (0.0-0.1) K/mm3 Seg Neutrophils % 74.1 H (40.0-70.0) % Seg Neutrophils # 9.3 H (1.8-7.7) K/mm3 Sodium 138 (137-145) mmol/L Potassium 4.9 (3.6-5.0) mmol/L Chloride 104.4 (98-107) mmol/L Carbon Dioxide 23 (22-30) mmol/L Anion Gap 16 mmol/L BUN 20 H (7-17) mg/dL Creatinine 0.6 L (0.7-1.2) mg/dL Estimated GFR > 60 ml/min BUN/Creatinine Ratio 33 % Glucose 104 H (65-100) mg/dL Calcium 9.5 (8.4-10.2) mg/dL Magnesium 2.30 (1.7-2.3) mg/dL Urine Color Yellow (Yellow) Urine Turbidity Clear (Clear) Urine pH 7.0 (5.0-7.0) Ur Specific [place] 1.018 (1.003-1.030) Urine Protein <15 mg/dl (Negative) mg/dL Urine Glucose (UA) Neg (Negative) mg/dL Urine Ketones 20 (Negative) mg/dL Urine Blood Sm (Negative) Urine Nitrite Neg (Negative) Urine Bilirubin Neg (Negative) Urine Urobilinogen < 2.0 (<2.0) mg/dL Ur Leukocyte Esterase Neg (Negative) Urine WBC (Auto) 1.0 (0.0-6.0) /HPF Urine RBC (Auto) 4.0 (0.0-6.0) /HPF U Epithel Cells (Auto) < 1.0 (0-13.0) /HPF - EKG Data -: EKG Interpreted by Ne EKG shows normal: sinus rhythm, ST-T waves Rate: normal - Radiology Data Radiology results: report reviewed CT head/brain wo con INDICATION: possible transient weakness, ams recent fall. TECHNIQUE: All CT scans at this location are performed using the following dose modulation technique: Automated exposure control. COMPARISON: Head CT 12/05/2018 FINDINGS: Right frontotemporal craniectomy defect and extensive right cerebral hemisphere encephalomalacia with ex vacuo dilatation of right ventricle is unchanged. There is no acute hemorrhage, abnormal extra-axial fluid collection, midline shift or mass effect. Visualized paranasal sinuses and mastoid air cells are well-aerated. IMPRESSION: 1. No intracranial bleed or large acute territorial infarction. 2. Right frontotemporal craniectomy with extensive encephalomalacia involving right cerebral hemisphere, unchanged. - Medical Decision Making Pt is at her baseline. CT head was performed since recent history of being found on the floor. At the ED workup no acute abnormality was identified and patient is at baseline and therefore will be discharged back to the care of the provider. Patient did receive Keppra since she has a history seizures and was due for her evening dose of medication. - Differential Diagnosis psych, weakness, infection, Critical Care Time: No Critical care attestation.: If time is entered above; I have spent that time in minutes in the direct care of this critically ill patient, excluding procedure time. ED Disposition Clinical Impression: Developmental delay, gross motor, Episode of generalized weakness Disposition: DC-01 TO HOME OR SELFCARE Is pt being admited?: No Does the pt Need Aspirin: No Condition: Stable Instructions: Weakness (ED) Additional Instructions: Continue your medication as prescribed. Follow-up with your doctor or doctor/clinic provided. Return if symptoms worsen as indicated by your discharge instructions. Referrals: your, doctor [Other] - 3-5 Days Time of Disposition: 22:36
[2018-12-26 21:42] LABS: Bilirubin,Urine NEG (Negative); Blood,Urine SM (Negative); Color,Urine Yellow (Yellow); Protein,Urine <15 mg/dL mg/dL (Negative); Urobilinogen,Urine < 2.0 mg/dL (<2.0)
--- NOTE | 2018-12-26 22:08 | Cat Scan Report ---
CT head/brain wo con INDICATION: possible transient weakness, ams recent fall. TECHNIQUE: All CT scans at this location are performed using the following dose modulation technique: Automated exposure control. COMPARISON: Head CT 12/05/2018 FINDINGS: Right frontotemporal craniectomy defect and extensive right cerebral hemisphere encephalomalacia with ex vacuo dilatation of right ventricle is unchanged. There is no acute hemorrhage, abnormal extra-axial fluid collection, midline shift or mass effect. Vi sualized paranasal sinuses and mastoid air cells are well-aerated. IMPRESSION: 1. No intracranial bleed or large acute territorial infarction. 2. Right frontotemporal craniectomy with extensive encephalomalacia involving right cerebral hemisphe re, unchanged. Signer Name: Kael Salinas MD Signed: 12/26/2018 10:04 PM Workstation Name: [id number]
== END 2018-12-27 02:13 | disposition home or self-care (01) ==
LOC: ED 18:00
DX: F82 Specific developmental disorder of motor function (principal); I10 Essential (primary) hypertension; F32.9 Major depressive disorder, single episode, unspecified; F20.9 Schizophrenia, unspecified; Z98.890 Other specified postprocedural states; Z88.1 Allergy status to other antibiotic agents; Z88.8 Allergy status to other drugs, medicaments and biological substances; Z79.899 Other long term (current) drug therapy; Z79.1 Long term (current) use of non-steroidal anti-inflammatories (NSAID); Z79.82 Long term (current) use of aspirin
CPT/HCPCS: 36415; 70450; 80048; 81001; 83735; 85025; 93005; 93010; 99284